=== PATIENT | female | born 1955 | race Caucasian/White ===

== ENCOUNTER → 2018-05-29 15:55 | Outpatient (CLI) | payer SELFPAY | PROVIDERS: Family Provider Family Medicine; PCP Family Medicine; Visit Provider Family Medicine | DX: M54.5 Low back pain (principal) | CPT/HCPCS: 72110 ==

== ENCOUNTER → 2018-06-19 10:11 | Outpatient (CLI) | payer OTHER, SELFPAY ==
[2018-06-19 12:42] LABS: Anion Gap 7 (5-15); BUN 11 mg/dL (7-18); BUN/Creat Ratio 15.2 RATIO (10-20); Calcium,Total 9.5 mg/dL (8.5-10.1); Chloride 104 mmol/L (98-107); Creatinine, Serum 0.72 mg/dL (0.55-1.02); EST Glomerular Filtration Rate 87 mL/min (>60); Est Glom Filt Rate - Afr Amer 105 mL/min (>60); Glucose 142 mg/dL (74-106); Sodium Level 141 mmol/L (136-145)
== END ==
PROVIDERS: Family Provider Family Medicine; PCP Family Medicine; Visit Provider Family Medicine
DX: E11.9 Type 2 diabetes mellitus without complications (principal); I10 Essential (primary) hypertension
CPT/HCPCS: 36415; 80048

== ENCOUNTER 2018-07-23 05:11 | Inpatient (IN) | payer OTHER, SELFPAY ==
[2018-07-23] VITALS (21 sets, daily range): BP systolic 94–171; BP diastolic 2–102; PULSE 74–105; RESP 16–20; TEMP 36.6–37.1; O2SAT 95–98; BMI 29.0; BMI 28.5
--- NOTE | 2018-07-23 05:17 | ED.RN ---
NO OLD EKGS IN MUSE.
--- NOTE | 2018-07-23 05:24 | EKG12_ITS ---
Test Reason : CP Blood Pressure : / mmHG Vent. Rate : 104 BPM Atrial Rate : 104 BPM P-R Int : 152 ms QRS Dur : 082 ms QT Int : 350 ms P-R-T Axes : 071 -29 047 degrees QTc Int : 460 ms Sinus tachycardia Septal infarct , age undetermined Abnormal ECG Possible inferior ischemia Confirmed by ANNABEL WHITMORE ([id number]), editorial project manager GIDEON PACE ([id number] on 08/04/2018 8:24:45 AM Referred By: YANI Confirmed By:ANNABEL WHITMORE
--- NOTE | 2018-07-23 05:24 | RAD_ITS ---
STUDY: X-RAY CHEST REASON FOR EXAM: Female, 62 years old. Back pain started Priyank, decreased appetite, chest pain. Feels like my heart is racing. TECHNIQUE: Single AP portable view of the chest. COMPARISON: CT chest 08/13/2013 FINDINGS: There is a stable calcified granuloma in the right parahilar parenchyma. As hyperinflation. There is no demonstrated pleural abnormality. Normal size heart. Normal mediastinum and jose. Normal visualized pulmonary arteries. Normal visualized aortic arch and descending thoracic aorta. There are diffuse degenerative changes of the visualized thoracic spine. Normal visualized ribs, clavicles, and shoulders. There is no demonstrated abnormality of the visualized soft tissue structures of the upper abdomen. RAD/Chest 1 View (Portable) IMPRESSION: No pulmonary edema, congestive heart failure or confluent pneumonia. Hyperinflation remote chondromatous exposure. Electronically Signed: Talita Colmenares MD at 5:54 EDT , Service support ,
[2018-07-23] MEDS: 0.9% Normal Saline 1,000 ML 150 ML IV (05:30)
[2018-07-23] MEDS: Aspirin 81 MG TAB.CHEW 324 MG PO (05:33)
[2018-07-23 05:34] LABS: Absolute Lymphocyte Count 2.56 X10^3/ul (0.83-4.51); Absolute Neutrophil Count 7.2 X10^3/uL (2.0-7.7); Basophil# 0.01 X10^3/uL; Basophil% 0.1 % (0-1); Eosinophils% 0.9 % (0-5); Hematocrit 41.6 % (37-47); Hemoglobin 14.1 g/dl (12.0-15.0); Lymphocyte # 2.56 X10^3/ul (4.0); Lymphocyte % 23.3 % (19-41); Mean Corp Hgb Conc 33.9 g/gl (32-36); Mean Corpuscular Hgb 28.3 pg (27.0-32.0); Mean Corpuscular Volume 83.4 fL (81-99); Mean Platelet Vol. 10.9 fl (6.2-12.0); Monocyte# 1.09 X10^3/uL; Monocyte% 9.9 % (0-10); Neutrophil % 65.6 % (47-70); Platelet Count 215 K/mm3 (150-450); RBC Distribution Width CV 13.4 % (11.6-14.6); RBC Distribution Width SD 40.3 fl (35.1-43.9); Red Blood Count 4.99 M/mm3 (4.2-5.4)
[2018-07-23 05:42] LABS: POSITIVE COUNT NO; POSITIVE DIFFERENTIAL NO; POSITIVE MORPHOLOGY NO
[2018-07-23] MEDS: Ondansetron 4 MG/2 ML Vial IV (05:54)
[2018-07-23 05:57] LABS: Anion Gap 9 (5-15); BUN 7 mg/dL (7-18); BUN/Creat Ratio 9.7 RATIO (10-20); Chloride 104 mmol/L (98-107); Creatinine, Serum 0.72 mg/dL (0.55-1.02); EST Glomerular Filtration Rate 88 mL/min (>60); Est Glom Filt Rate - Afr Amer 106 mL/min (>60); Estimated Creatinine Clearance 68.73 ml/min; Glucose 174 mg/dL (74-106); Potassium 3.9 mmol/L (3.5-5.1); Sodium Level 138 mmol/L (136-145)
--- NOTE | 2018-07-23 05:58 | EKG12_ITS ---
Test Reason : INNCREASED TROPONIN Blood Pressure : / mmHG Vent. Rate : 080 BPM Atrial Rate : 080 BPM P-R Int : 150 ms QRS Dur : 078 ms QT Int : 404 ms P-R-T Axes : 061 -12 082 degrees QTc Int : 465 ms Normal sinus rhythm Septal infarct , age undetermined Abnormal ECG Confirmed by ANNABEL WHITMORE ([id number]), editor city GIDEON PACE ([id number] on 08/04/2018 8:24:08 AM Referred By: YANI Confirmed By:ANNABEL WHITMORE
--- NOTE | 2018-07-23 05:59 | ED.RN ---
DR MOREL MADE AWARE OF TROPONIN 10.9.
[2018-07-23] MEDS: Acetaminophen 325 MG Tablet 650 MG PO (06:01)
[2018-07-23] MEDS: Enoxaparin 80 MG/0.8 ML Syringe SC (06:03)
--- NOTE | 2018-07-23 06:04 | ED.VISSUMM ---
- ER Visit Summary Date of Service: 07/23/18 Chief Complaint: [Chest pain] History of Present Illness: The patient is a 62 F [presents the emergency department complaint of chest discomfort that started 3 days ago. Patient's had intermittent discomfort that is exertional. Patient feels short of breath with it. Patient states the pain radiates to her back at times. Currently she rates her pain a 5 out of 10. Patient is a diabetic. Patient has not had any cardiac history. She did travel to [place] in April. Patient has not had fever or cough.] Physical Examination: [HEENT-PERRLA, EOMI. Cranial nerves II through XII grossly intact. TMs clear. Mucous membranes moist. No adenopathy. Cardiovascular-regular rate and rhythm without murmur or ectopy Lungs-clear to auscultation, chest wall stable without crepitus or subcu emphysema Abdomen-normoactive bowel sounds, soft, nontender, no rebound or rigidity, no peritoneal signs. Extremities-intact ?4, normal range of motion, normal pulses, atraumatic] Test Results: [EKG obtained on arrival showed a sinus rhythm with a ventricular rate of [address] changes noted including subtle ST depression inferior lateral leads. No old EKGs available for comparison. CBC with differential is normal. Chemistries were normal. Troponin was elevated 10.9. Chest x-ray showed nothing acute. Repeat EKG obtained showed a sinus rhythm with a ventricular rate of 80 bpm not significantly changed from first EKG.] Emergency Department Course and Treatment: [Patient received aspirin on presentation and 1 sublingual nitro every 5 minutes x3 and had initial pain improvement but then the pain started to come back. Patient received fentanyl 25 mg IV. Patient was started on Lovenox 80 mg subcu.] Treatment Plan: [Admit for further workup and evaluation of her non-ST elevation OR] Disposition: [Admit] Impression: [Chest pain Non-ST elevation OR] This note was generated with [employer] dictation software. It may contain incorrect words, spelling, and punctuation that were not noted in review of the chart prior to signing ED Disposition - Plan for ED Patient: Chief Complaint: Chest Pain Referrals: Emmett Lopez MD [Primary Care Provider] -
[2018-07-23] MEDS: fentaNYL 100 MCG/2 ML Ampul 25 MCG IV (06:07)
--- NOTE | 2018-07-23 06:07 | ED.DCSUM_ITS ---
- ER Visit Summary Date of Service: 07/23/18 Chief Complaint: [Chest pain] History of Present Illness: The patient is a 62 F [presents the emergency department complaint of chest discomfort that started 3 days ago. Patient's had intermittent discomfort that is exertional. Patient feels short of breath with it. Patient states the pain radiates to her back at times. Currently she rates her pain a 5 out of 10. Patient is a diabetic. Patient has not had any cardiac history. She did travel to [place] in April. Patient has not had fever or cough.] Physical Examination: [HEENT-PERRLA, EOMI. Cranial nerves II through XII grossly intact. TMs clear. Mucous membranes moist. No adenopathy. Cardiovascular-regular rate and rhythm without murmur or ectopy Lungs-clear to auscultation, chest wall stable without crepitus or subcu emphysema Abdomen-normoactive bowel sounds, soft, nontender, no rebound or rigidity, no peritoneal signs. Extremities-intact ?4, normal range of motion, normal pulses, atraumatic] Test Results: [EKG obtained on arrival showed a sinus rhythm with a ventricular rate of [address] changes noted including subtle ST depression inferior lateral leads. No old EKGs available for comparison. CBC with differential is normal. Chemistries were normal. Troponin was elevated 10.9. Chest x-ray showed nothing acute. Repeat EKG obtained showed a sinus rhythm with a ventricular rate of 80 bpm not significantly changed from first EKG.] Emergency Department Course and Treatment: [Patient received aspirin on presentation and 1 sublingual nitro every 5 minutes x3 and had initial pain improvement but then the pain started to come back. Patient received fentanyl 25 mg IV. Patient was started on Lovenox 80 mg subcu.] Treatment Plan: [Admit for further workup and evaluation of her non-ST elevation VT] Disposition: [Admit] Impression: [Chest pain Non-ST elevation VT] This note was generated with [employer] dictation software. It may contain incorrect words, spelling, and punctuation that were not noted in review of the chart prior to signing ED Disposition - Plan for ED Patient: Chief Complaint: Chest Pain Referrals: Emmett Lopez MD [Primary Care Provider] -
[2018-07-23] MEDS: Metoprolol Tartrate 5 MG/5 ML Vial IV (06:13)
--- NOTE | 2018-07-23 06:15 | PCM.HP.STD ---
Problem List (1) Non-ST elevation VT (NSTEMI) Status: Acute (2) Diabetes mellitus Status: Acute History of Present Illness Date of Admission: 07/23/18 Chief Complaint: Chest pain The patient is a 62 year old F with a significant history of diabetes mellitus who presented because of chest pain that started 3 days before she came to the emergency department. Her pain is located at her entire chest. She describes her pain as a tightening and squeezing. On the first day her chest pain lasted all day. The next day she did not have any pain. However the pain returned on the third day and it lasted all day. She rates her pain as 10 out of 10. The pain started when she was walking. The pain improves somewhat with rest and is exacerbated with exertion. The pain radiates to her back. Associated with her symptoms is nausea without vomiting; diaphoresis and shortness of breath. At emergency department patient was found to have ST depression in leads V3, V4 and V6. Her troponin was severely elevated at 10.9. She received nitroglycerin which temporarily eased her chest pain but her pain came back. Subsequently, she was given fentanyl; Lovenox and metoprolol. At the time of my examination patient denied any pain. Patient reports history of previous chest pain with unremarkable stress test. Patient does not know whether her parents had any disease. However she reported that her uncle and aunts had diabetes. Past Medical History Allergies No Known Allergies Allergy (Verified 07/23/18 05:16) Home Medications: Ambulatory Orders Medication Instructions Recorded Dm Natural Med 1 cap PO BID 07/23/18 Surgical History: cholecystectomy, hysterectomy, - - Neck surgery Psychiatric History: No pertinent psych hx Lives: Alone Smoking Status: Never smoker Alcohol: None - *Family History Maternal Family History: Family History (Last Reviewed 07/23/18 @ 07:29 by Atul Rivas MD) Aunt Diabetes Uncle Diabetes Review of Systems Constitutional: Denies: Chills, Fever, Weight Change Eyes: Denies: Blurred vision, Pain HEENT: Denies: Head Aches, Sinus Congestion, Sinus Drainage Cardiovascular: Reports: Chest Pain, Chest Tightness. Denies: Palpitations Respiratory: Reports: Shortness of Breath. Denies: Cough, Sputum production Gastrointestinal: Reports: Nausea. Denies: Abdominal Pain, Vomiting Genitourinary: Denies: Dysuria Gynecological: Denies: Breast symptoms Musculoskeletal: Denies: Joint Pain, Joint Tenderness Skin: Denies: Rash, Wounds Neurological: Denies: Numbness, Tingling, Focal weakness Psychiatric: Denies: Anxiety, Depression, Homicidal Ideations, Suicidal Ideations Hematologic/ Lymphatic: Denies: Easy Bruising, Easy Bleeding VTE Information - Inpt Only VTE Present on Admission: No VTE Mechan Device Prophylaxis: None VTE Pharm Prophylaxis ordered?: No Reason prophylaxis not ordered:: Treatment Not Indicated - Received therapeutic dose of Lovenox for non-ST elevation VT Patient Problems: Active and Suspected Problems Non-ST elevation VT (NSTEMI) (Acute) Diabetes mellitus (Acute) - Physical Exam General: Alert, Oriented x3, Cooperative HEENT: Atraumatic, PERRLA, EOMI, Normocephalic Neck: Supple, No JVD, Negative Carotid Bruits Lungs: Clear to auscultation, Normal air movement, - - Nontender chest. Cardiovascular: Regular rate, No murmurs Abdomen: Bowel Sounds Present, Soft, Non Tender Extremities: No edema, Capillary Refill Less than 3 Seconds Skin: No rashes, No breakdown Musculoskeletal: No Tenderness to Palpation of Joints or Extremities Lymphatic: No Cervical, Supraclavicular, or Inguinal Adenopathy Neurological: Cranial nerves II-XII grossly intact Psych/Mental Status: Normal Affect, Appropriate Vital Signs Temp Pulse Resp BP Pulse Ox 97.9 F 79 16 120/81 H 98 07/23/18 05:12 07/23/18 06:09 07/23/18 06:09 07/23/18 06:09 07/23/18 06:09 Oxygen Flow Rate (L/min) 2 Oxygen Delivery Method Nasal Cannula Weight: 74.4 kg Body Mass Index (BMI) 29.0 Laboratory Tests Past 24 Hrs 07/23/18 07/23/18 05:21 05:21 WBC 11.0 RBC 4.99 Hgb 14.1 Hct 41.6 MCV 83.4 MCH 28.3 MCHC 33.9 RDW 13.4 RDW Differential 40.3 Plt Count 215 MPV 10.9 Immature Gran % (Auto) 0.200 Neut % (Auto) 65.6 Lymph % (Auto) 23.3 [place] % (Auto) 9.9 Eos % (Auto) 0.9 Baso % (Auto) 0.1 Absolute Neuts (auto) 7.2 Absolute Lymphs (auto) 2.56 Total Counted Not Reportable Sodium 138 Potassium 3.9 Chloride 104 Carbon Dioxide 25.0 Anion Gap 9 BUN 7 Creatinine 0.72 Estim Creat Clear Calc 68.73 Est GFR (MDRD) Af Amer 106 Est GFR (MDRD) Non-Af 88 BUN/Creatinine Ratio 9.7 L Glucose 174 H Calcium 9.0 Troponin I 10.900 H* Assessment/Plan All Active Problems Non-ST elevation VT (NSTEMI) (Acute) Diabetes mellitus (Acute) The patient is a 62 year old F with a significant history of diabetes mellitus who presented because of chest pain and found to have ST depression in leads V3, V4, V6; and also with severely elevated troponin of 10.9. Non-ST elevation VT Patient with chest pain; abnormal EKG and troponin of 10.9. Admit to a monitored bed on PCU CXR independently reviewed confirms no acute cardia pulmonary pathology. EKG with ST depression in V3, V4 and V6 and inferior leads. Received 324 mg aspirin at emergency department. Received fentanyl at the ED Received therapeutic dose of Lovenox at emergency department. ASA 81 mg p.o. daily Cardiology consulted. Cardiology plans to take patient to the cardiac lab for cardiac catheterization. High intensity statin started by cardiology. Diabetes mellitus On admission blood glucose was fairly controlled. Patient reportedly takes herbal supplements at home and watch her diet. Patient is n.p.o. for cardiac catheterization. Accu-Chek before meals at bedtime and correction scale insulin. Adjust Accu-Chek and insulin therapy when patient is no longer n.p.o. DVT prophylaxis Patient received treatment dose of Lovenox on day of admission. Prophylaxis not ordered at this time. Consider DVT prophylaxis if patient stays after the day of admission. Code Visit Inpatient E&M: 18859 Init Hosp L3
--- NOTE | 2018-07-23 06:56 | EKG12_ITS ---
Test Reason : CP Blood Pressure : / mmHG Vent. Rate : 072 BPM Atrial Rate : 072 BPM P-R Int : 134 ms QRS Dur : 080 ms QT Int : 414 ms P-R-T Axes : 044 -08 081 degrees QTc Int : 453 ms Normal sinus rhythm Nonspecific ST and T wave abnormality Abnormal ECG When compared with ECG of 23-JUL-2018 06:04, MANUAL COMPARISON REQUIRED, DATA IS UNCONFIRMED Confirmed by PATSY EVANS, REGAN ([id number]), assistant production editor MINESH AVILA ([id number]) on 07/27/2018 10:54:50 AM Referred By: SANDEE Confirmed By:REGAN GARNER MD
--- NOTE | 2018-07-23 07:00 | PCM.CONS.C ---
Reason for Consult Date of Consultation: 07/23/18 Reason for Consultation: Chest discomfort History of Present Illness: The patient is a 62 year old F with no previous medical history who presented to the emergency room with a 4-5-day episode of chest discomfort. She describes it as a squeezing sensation like somebody grabbing her with some radiation to the left side. She was concerned about the above it seemed to occur with exertion and also with rest. She denied any dizziness or diaphoresis no near syncope or syncope. She really is on no medications. She presented to the emergency room had an EKG done and then had troponins done which were elevated. She was admitted to the hospitalist and cardiology was called for further evaluation and management. At this particular time she denies any chest pain or shortness of breath. [] Past Medical History Allergies/Adverse Reactions: Allergies No Known Allergies Allergy (Verified 07/23/18 05:16) Home Medications: Ambulatory Orders Medication Instructions Recorded Dm Natural Med 1 cap PO BID 07/23/18 Smoking Status: Never smoker Alcohol: None Drugs: None Review of Systems - Review of Systems General: Denies: Fever, Night Sweats, Fatigue Cardiovascular: Reports: Chest Discomfort at Rest, Chest Discomfort with Exertion, Chest Tightness, Chest Heaviness. Denies: Chest Discomfort, Shortness of Breath, Orthopnea, PND, Peripheral Edema, Palpitations, Lightheadedness, Dizziness, Near Syncope, Syncope Respiratory: Denies: Cough, Sputum Production, Hemoptysis Gastrointestinal: Denies: Hematemesis, Hematochezia, Melena Genitourinary: Denies: Dysuria, Hematuria Skin: Denies: Rash Subjectve: Pleasant lady in no apparent distress resting in bed Objective: Vital Signs Temp Pulse Resp BP Pulse Ox 97.9 F 79 16 120/81 H 98 07/23/18 05:12 07/23/18 06:09 07/23/18 06:09 07/23/18 06:09 07/23/18 06:09 Oxygen Flow Rate (L/min) 2 Oxygen Delivery Method Nasal Cannula Weight: 164 lb 0.383 oz Body Mass Index (BMI) 29.0 General: Awake, Alert, Oriented x 3 HEENT: PERRL, EOMI, Sclera Non Icteric Neck: Supple, Good ROM, No Lymph Node Enlargement Lungs: Clear to auscultation Cardiovascular: Regular Rhythm, Normal S1, Normal S2, No Murmurs, No Rubs, No Gallops Vascular: No Carotid Bruits, Normal Femoral Pulses, Normal Radial Pulses, Normal Dorsalis Pedal Pulse, Normal Posterior Tibial Pulses Abdomen: Bowel Sounds Present, Soft, Non Tender, No HSM, No Organomegaly Extremities: No Cyanosis, No Clubbing, No edema Neurological: No Focal Motor or Sensory Deficit 07/23/18 05:21: WBC 11.0, RBC 4.99, Hgb 14.1, Hct 41.6, MCV 83.4, MCH 28.3, MCHC 33.9, RDW 13.4, RDW Differential 40.3, Plt Count 215, MPV 10.9, Immature Gran % (Auto) 0.200, Neut % (Auto) 65.6, Lymph % (Auto) 23.3, [place] % (Auto) 9.9, Eos % (Auto) 0.9, Baso % (Auto) 0.1, Absolute Neuts (auto) 7.2, Total Counted Not Reportable 07/23/18 05:21: Sodium 138, Potassium 3.9, Chloride 104, Carbon Dioxide 25.0, Anion Gap 9, BUN 7, Creatinine 0.72, Est GFR (MDRD) Af Amer 106, Est GFR (MDRD) Non-Af 88, BUN/Creatinine Ratio 9.7 L, Glucose 174 H, Calcium 9.0, Troponin I 10.900 H* Rhythm: EKG: ECHO: Stress Test: Cardiac Cath: PCI: CT Surgery: Holter monitor: EPS: PPM: CXR: Chest CT Scan: Assessment/Plan 1. Non-ST elevation myocardial infarction. The patient presents with chest discomfort which is waxing and waning of 3-4 days duration. She now has a non-ST elevation myocardial infarction. My recommendations would be-aspirin 81 mg Brilinta 180 mg now Toprol-XL 25 mg Would recommend cardiac catheterization. The risk benefits and alternatives have been explained to her she understands and agrees to proceed. The above will be performed through the radial approach preferably. 2. Diabetes mellitus Will defer to the hospitalist regarding the above. Thank you for allowing me to participate in the care of your patient. Please don't hesitate to call if any issues arise
--- NOTE | 2018-07-23 07:03 | CON.PCM_ITS ---
Reason for Consult Date of Consultation: 07/23/18 Reason for Consultation: Chest discomfort History of Present Illness: The patient is a 62 year old F with no previous medical history who presented to the emergency room with a 4-5-day episode of chest discomfort. She describes it as a squeezing sensation like somebody grabbing her with some radiation to the left side. She was concerned about the above it seemed to occur with exertion and also with rest. She denied any dizziness or diaphoresis no near syncope or syncope. She really is on no medications. She presented to the emergency room had an EKG done and then had troponins done which were elevated. She was admitted to the hospitalist and cardiology was called for further evaluation and management. At this particular time she denies any chest pain or shortness of breath. [] Past Medical History Allergies/Adverse Reactions: Allergies No Known Allergies Allergy (Verified 07/23/18 05:16) Home Medications: Ambulatory Orders Medication Instructions Recorded Dm Natural Med 1 cap PO BID 07/23/18 Smoking Status: Never smoker Alcohol: None Drugs: None Review of Systems - Review of Systems General: Denies: Fever, Night Sweats, Fatigue Cardiovascular: Reports: Chest Discomfort at Rest, Chest Discomfort with Exertion, Chest Tightness, Chest Heaviness. Denies: Chest Discomfort, Shortness of Breath, Orthopnea, PND, Peripheral Edema, Palpitations, Lightheadedness, Dizziness, Near Syncope, Syncope Respiratory: Denies: Cough, Sputum Production, Hemoptysis Gastrointestinal: Denies: Hematemesis, Hematochezia, Melena Genitourinary: Denies: Dysuria, Hematuria Skin: Denies: Rash Subjectve: Pleasant lady in no apparent distress resting in bed Objective: Vital Signs Temp Pulse Resp BP Pulse Ox 97.9 F 79 16 120/81 H 98 07/23/18 05:12 07/23/18 06:09 07/23/18 06:09 07/23/18 06:09 07/23/18 06:09 Oxygen Flow Rate (L/min) 2 Oxygen Delivery Method Nasal Cannula Weight: 164 lb 0.383 oz Body Mass Index (BMI) 29.0 General: Awake, Alert, Oriented x 3 HEENT: PERRL, EOMI, Sclera Non Icteric Neck: Supple, Good ROM, No Lymph Node Enlargement Lungs: Clear to auscultation Cardiovascular: Regular Rhythm, Normal S1, Normal S2, No Murmurs, No Rubs, No Gallops Vascular: No Carotid Bruits, Normal Femoral Pulses, Normal Radial Pulses, Normal Dorsalis Pedal Pulse, Normal Posterior Tibial Pulses Abdomen: Bowel Sounds Present, Soft, Non Tender, No HSM, No Organomegaly Extremities: No Cyanosis, No Clubbing, No edema Neurological: No Focal Motor or Sensory Deficit 07/23/18 05:21: WBC 11.0, RBC 4.99, Hgb 14.1, Hct 41.6, MCV 83.4, MCH 28.3, MCHC 33.9, RDW 13.4, RDW Differential 40.3, Plt Count 215, MPV 10.9, Immature Gran % (Auto) 0.200, Neut % (Auto) 65.6, Lymph % (Auto) 23.3, [place] % (Auto) 9.9, Eos % (Auto) 0.9, Baso % (Auto) 0.1, Absolute Neuts (auto) 7.2, Total Counted Not Reportable 07/23/18 05:21: Sodium 138, Potassium 3.9, Chloride 104, Carbon Dioxide 25.0, Anion Gap 9, BUN 7, Creatinine 0.72, Est GFR (MDRD) Af Amer 106, Est GFR (MDRD) Non-Af 88, BUN/Creatinine Ratio 9.7 L, Glucose 174 H, Calcium 9.0, Troponin I 10.900 H* Rhythm: EKG: ECHO: Stress Test: Cardiac Cath: PCI: CT Surgery: Holter monitor: EPS: PPM: CXR: Chest CT Scan: Assessment/Plan 1. Non-ST elevation myocardial infarction. * The patient presents with chest discomfort which is waxing and waning of 3-4 days duration. She now has a non-ST elevation myocardial infarction. * My recommendations would be-aspirin 81 mg * Brilinta 180 mg now * Toprol-XL 25 mg * Would recommend cardiac catheterization. The risk benefits and alternatives have been explained to her she understands and agrees to proceed. The above will be performed through the radial approach preferably. * 2. Diabetes mellitus * Will defer to the hospitalist regarding the above. * * Thank you for allowing me to participate in the care of your patient. Please don't hesitate to call if any issues arise
[2018-07-23] MEDS: TICAGRELOR 90 MG TABLET 180 MG PO (07:14)
[2018-07-23] MEDS: Metoprolol(XL)Succ 25 MG Tablet PO ×2 (07:23→11:37)
[2018-07-23] MEDS: 0.9% Normal Saline 1,000 ML 15 ML IV (07:24)
[2018-07-23 09:47] LABS: Cholesterol 189 mg/dL (200); High Density Lipoprotein 63 mg/dL; Triglycerides 112 mg/dL; Very Low Density Lipoprotein 22 mg/dL (5-40)
[2018-07-23] MEDS: Nitroglycerin Oint 1 INCH PACKET TRANSDERM. (11:37)
--- NOTE | 2018-07-23 16:31 | CL.D_ITS ---
Patient Name: LAURA MATTHEWS Study Date: 07/23/2018 Performing: Tal Leone MD Ht: 63 inches 160 cm : 1955 Wt: 161.1 lbs 73 kg Age: 62 Gender: female BSA: 1.76 PROCEDURE(S) PERFORMED [id number]/LV CLINICAL PROFILE AND INDICATIONS Indications: ACS <= 24 hrs Heart Failure: None Stress/Imaging Stress/Image Study Performed: No CONCLUSIONS Severe triple-vessel disease involving the proximal left anterior descending artery, mid left anterio r descending artery, mid circumflex artery, and mid and distal right coronary artery. Mild reduction in left ventricular ejection fraction. RECOMMENDATIONS Surgery consult for coronary revascularization DESCRIPTION OF PROCEDURE The patient arrived to the procedure lab. The risks and benefits of the procedure as well as a full d escription of our services here and current unavailability of surgical backup were fully explained to the patient and/or their significant other prior to the catheterization. The Timeout was completed, verifying the correct patient and procedure. The patient's procedural site was prepped and draped in the usual fashion. Local anesthetic was given subcutaneously to right radial region with Lidocaine 2% . Using a modified Seldinger technique, arterial access was obtained via the right radial artery, a 6 Fr sheath was inserted. Right Coronary Artery selective angiography was then performed in multiple v iews using a 5 Fr. Pigtail catheter. Left Coronary Artery selective angiography was performed in mult iple views using a 5 Fr. 4.0 [place] catheter. Left Ventriculography was performed in REYES projection us ing a 5 Fr. Pigtail catheter. LV to AO pullback pressures were then recorded.The arterial sheath was pulled and a TR Band was applied for hemostasis CORONARY ANGIOGRAPHY DOMINANCE: Right Dominant LEFT HEART ASSESSMENT Left Ventricular Ejection Fraction: by LV Gram 45 % Anterior Hypokinesis - Moderate. Apical Hypokinesis - Moderate Depressed Left Ventricular systolic function LEFT MAIN: Mild calcification, Angiographically normal LEFT ANTERIOR DECENDING ARTERY: PROX LAD: Eccentric 90% stenosis MID LAD: Long area of 80% stenosis with diffuse disease CIRCUMFLEX ARTERY: MID CIRC: Long area of 90% stenosis OM 1: Proximal - Multiple areas of 80% stenosis RIGHT CORONARY ARTERY: MID RCA: 50 % Stenosis RT PDA: Mid - Multiple 80% stenosis in a small vessel COMPLICATIONS No Complications PROCEDURE MEDICATIONS Versed 1 mg IV Fentanyl 50 mcg IV Heparin diluted in 23cc Heparinized saline. Patient given 1/3 of 10cc IA of this solution. 07:57:53 Verapamil 2.5mg, Ntg 100mcgs, 2000 units of Heparin diluted in 23cc Heparinized saline. Patient give n 1/3 of 10cc IA of this solution. 07/23/2018 07:57:53 SUMMARY OF HEMODYNAMIC DATA Time AIR REST ECG 07:41:52 AO 86/54 (70) SA 07:58:43 LV 100/7, 15 08:05:51 LV 89/6, 13 08:05:58 LV 105/24, 34 08:07:15 LV 114/21, 30 08:07:21 LVp 104/22, 29 08:07:32 AOp 116/71 (92) 08:07:37 Signed By Tal Leone MD On 07/23/2018 16:30:56 Tal Leone MD
--- NOTE | 2018-07-25 18:03 | PCM.DC.SUM ---
Discharge Date and Diagnosis Date of Admission: 07/23/18 Date of Discharge: 07/23/18 - Primary Discharge Diagnosis #1 non-STEMI #2 severe triple-vessel coronary artery disease involving the proximal left anterior descending artery, mid left anterior descending artery, mid circumflex artery, and mid and distal right coronary artery. #3 type 2 diabetes Hospital Course and Treatment Operations: None Procedures: Cardiac catheterization Summary of Care Provided: The patient is a 62 year old F seen in the emergency room at [facility] with a chief complaint of chest discomfort of 3 days duration. Patient had intermittent discomfort which was worse on exertion. Workup in the emergency room included an EKG which showed a sinus rhythm and nonspecific ST-T wave changes including subtle ST depression in the inferior lateral leads, CBC was unremarkable, chemistry was unremarkable. Troponin was elevated at 10.9. Chest x-ray was unremarkable for acute disease. Patient was started on Lovenox 80 mg subcu, patient received aspirin on presentation, she was admitted to PCU with a diagnosis of non-STEMI and cardiology to consult. Cardiology performed a cardiac catheterization later that morning and patient had severe triple-vessel disease, patient was briefly admitted to ICU with a balloon pump but arrangements were made for her to be transferred to a tertiary care facility for further treatment. Physical exam: On examination she appeared in good health and spirits. Vital signs as documented. Skin warm and dry and without overt rashes. Neck without JVD. Lungs clear. Heart exam notable for regular rhythm, normal sounds and absence of murmurs, rubs or gallops. Abdomen unremarkable and without evidence of organomegaly, masses, or abdominal aortic enlargement. Extremities nonedematous. Neuro: Cranial nerves II through XII are grossly intact, no focal motor deficits were noted, sensation is intact to light touch and pinprick. Psych: Patient was alert and oriented x3 and appropriate, she did not appear depressed or anxious On 07/23/18, patient was transferred in stable condition to [facility] in [facility] for further care. - Physical Exam Vital Signs Temp Pulse Resp BP Pulse Ox 98.8 F 79 16 108/70 97 07/23/18 07:22 07/23/18 11:37 07/23/18 11:00 07/23/18 11:37 07/23/18 11:00 Oxygen Flow Rate (L/min) 2 Oxygen Delivery Method Nasal Cannula Weight: 73 kg Body Mass Index (BMI) 28.5 Intake and Output for Last 24 Hours 07/23/18 07/24/18 07/25/18 23:59 23:59 23:59 Intake Total 240 / 240 Balance 240 / 240 Home Medications: Medications to take at Discharge Dm Natural Med 1 cap PO BID 07/23/18 Primary Care Physician: Emmett Lopez MD [Primary Care Provider] - Disposition: Acute care Hospital Minutes spent on discharge:: 32 Patient Condition:: Stable Medical Necessity - Tobacco Use Smoking Status: Never smoker Meaningful Use Info Meaningful Use Diagnoses (Choose all that apply): AMI - AMI Aspirin given w/in 24hrs of arrival?: Yes ASA at discharge?: No Reason ASA not ordered:: Allergy - Patient was transferred to an acute care facility for further treatment Statins at discharge?: No Reason statins not ordered:: Allergy - Patient was transferred to an acute care facility for further treatment Esteban/ARB at discharge?: No Reason Esteban/ARB not ordered:: Allergy - Patient was transferred to an acute care facility for further treatment Beta Babs at discharge?: No Reason Beta Babs not ordered:: Allergy - Patient was discharged in acute care facility for further treatment Done w/ Acute MT measure.: Yes Code Visit OBSV E&M: 09879 Observ/hosp same date L3
--- NOTE | 2018-07-25 18:13 | DS.PCM_ITS ---
Discharge Date and Diagnosis Date of Admission: 07/23/18 Date of Discharge: 07/23/18 - Primary Discharge Diagnosis #1 non-STEMI #2 severe triple-vessel coronary artery disease involving the proximal left anterior descending artery, mid left anterior descending artery, mid circumflex artery, and mid and distal right coronary artery. #3 type 2 diabetes Hospital Course and Treatment Operations: None Procedures: Cardiac catheterization Summary of Care Provided: The patient is a 62 year old F seen in the emergency room at [facility] with a chief complaint of chest discomfort of 3 days duration. Patient had intermittent discomfort which was worse on exertion. Workup in the emergency room included an EKG which showed a sinus rhythm and nonspecific ST-T wave changes including subtle ST depression in the inferior lateral leads, CBC was unremarkable, chemistry was unremarkable. Troponin was elevated at 10.9. Chest x-ray was unremarkable for acute disease. Patient was started on Lovenox 80 mg subcu, patient received aspirin on presentation, she was admitted to PCU with a diagnosis of non-STEMI and cardiology to consult. Cardiology performed a cardiac catheterization later that morning and patient had severe triple-vessel disease, patient was briefly admitted to ICU with a balloon pump but arrangements were made for her to be transferred to a tertiary care facility for further treatment. Physical exam: On examination she appeared in good health and spirits. Vital signs as documented. Skin warm and dry and without overt rashes. Neck without JVD. Lungs clear. Heart exam notable for regular rhythm, normal sounds and absence of murmurs, rubs or gallops. Abdomen unremarkable and without evidence of organomegaly, masses, or abdominal aortic enlargement. Extremities nonedematous. Neuro: Cranial nerves II through XII are grossly intact, no focal motor deficits were noted, sensation is intact to light touch and pinprick. Psych: Patient was alert and oriented x3 and appropriate, she did not appear depressed or anxious On 07/23/18, patient was transferred in stable condition to [facility] in [facility] for further care. - Physical Exam Vital Signs Temp Pulse Resp BP Pulse Ox 98.8 F 79 16 108/70 97 07/23/18 07:22 07/23/18 11:37 07/23/18 11:00 07/23/18 11:37 07/23/18 11:00 Oxygen Flow Rate (L/min) 2 Oxygen Delivery Method Nasal Cannula Weight: 73 kg Body Mass Index (BMI) 28.5 Intake and Output for Last 24 Hours 07/23/18 07/24/18 07/25/18 23:59 23:59 23:59 Intake Total 240 / 240 Balance 240 / 240 Home Medications: Medications to take at Discharge Dm Natural Med 1 cap PO BID 07/23/18 Primary Care Physician: Emmett Lopez MD [Primary Care Provider] - Disposition: Acute care Hospital Minutes spent on discharge:: 32 Patient Condition:: Stable Medical Necessity - Tobacco Use Smoking Status: Never smoker Meaningful Use Info Meaningful Use Diagnoses (Choose all that apply): AMI - AMI Aspirin given w/in 24hrs of arrival?: Yes ASA at discharge?: No Reason ASA not ordered:: Allergy - Patient was transferred to an acute care facility for further treatment Statins at discharge?: No Reason statins not ordered:: Allergy - Patient was transferred to an acute care facility for further treatment Esteban/ARB at discharge?: No Reason Esteban/ARB not ordered:: Allergy - Patient was transferred to an acute care facility for further treatment Beta Babs at discharge?: No Reason Beta Babs not ordered:: Allergy - Patient was discharged in acute care facility for further treatment Done w/ Acute IA measure.: Yes Code Visit OBSV E&M: 48038 Observ/hosp same date L3
== END 2018-07-23 12:55 | disposition short-term general hospital (02) | DRG 282 ==
LOC: ED 05:29 → PCU 06:13
PROVIDERS: Admitting Provider Hospitalist; Emergency Provider Emergency Medicine; Family Provider Family Medicine; PCP Family Medicine; Visit Provider Internal Medicine
DX: I21.4 Non-ST elevation (NSTEMI) myocardial infarction (principal); E11.9 Type 2 diabetes mellitus without complications; I25.10 Atherosclerotic heart disease of native coronary artery without angina pectoris
CPT/HCPCS: 71045; 80048; 80061; 84484; 85025; 93005; 93458; 97802; 99152; 99153; 99285; J7030; Q9967; A4216; C1769; C1894; J2405

== ENCOUNTER → 2018-09-03 10:23 | Outpatient (CLI) | payer OTHER, SELFPAY ==
[2018-08-21 10:43] VITALS: BMI 28.0
--- NOTE | 2018-09-03 11:03 | PCM.CR.HP2 ---
CR - History & Physical - General Arrival date:: 09/03/18 Arrival time:: 10:30 Date of Referral:: 08/24/18 Date of CR Evaluation:: 09/03/18 Referring Physician: Dr. Leone Primary Diagnosis: NSTEMI CABG - History of Present Cardiac Event Onset Date: Enter Onset Date of cardiac illnesses in Comment field below Acute Myocardial Infarction within 12 months:: Yes - 07/27/2018 Coronary Artery Bypass Graft:: Yes - 07/27/2018 Type of Symptoms:: tightness in chest and back was hurting. Interventions with present event:: left heart cath at [facility] and then transferred patient to [facility] Were there any complications?: none - Medications Home Medications: Ambulatory Orders Medication Instructions Recorded Dm Natural Med 1 cap PO BID 07/23/18 aspirin 81 mg tablet,delayed 81 mg PO DAILY 08/21/18 release atorvastatin 40 mg tablet 40 mg PO DAILY 08/21/18 glipizide 5 mg tablet 5 mg PO DAILY 08/21/18 lisinopril 2.5 mg tablet 2.5 mg PO DAILY #90 tab 08/21/18 metoprolol tartrate 25 mg tablet 25 mg PO BID 08/21/18 - Allergies Allergies/Adverse Reactions: Allergies No Known Allergies Allergy (Verified 08/21/18 10:43) - Sleep Disorder Evaluation Hx of Sleep Apnea: No Do you snore loudly (louder than talking or can be heard through closed doors)?: No Do you often feel tired/ fatigued/ sleepy during daytime?: No Has anyone observed you stop breathing during sleep?: No History of Hypertension (for STOP score): No STOP Results: Negative Advanced Directives - Advanced Directives Power of Board [place]: No Living Will: No Advance Directives Information Provided: Yes Advance Directives on File: No DNR Order?:: No - MOLST See MOLST form: No Past Medical History - Past Medical Illness Medical History: Past Medical History (Last Reviewed 08/21/18 @ 11:17 by Tal Leone MD) Atherosclerosis of coronary artery of [place] heart without angina pectoris (Chronic) I25.10 Non-ST elevation [place] (NSTEMI) (Resolved) I21.4 Type 2 diabetes mellitus E11.9 - Past Surgical History Surgical History: Past Surgical History (Last Reviewed 08/21/18 @ 11:17 by Tal Leone MD) H/O coronary artery bypass surgery (Acute) Onset Date: 07/27/18 Z95.1 CABG x [address] @ [facility] [address] Toni Cox History of left heart catheterization Onset Date: 07/23/18 Z98.890 Surgical History: cholecystectomy, hysterectomy, - - Neck surgery cervical fusion - Family History Summary Family History: Family History (Last Reviewed 08/21/18 @ 11:17 by Tal Leone MD) Aunt Diabetes Uncle Diabetes Social History - Smoking History Smoking Status: Never smoker Hx Tobacco Use: No Hx Smoking Exposure: No - Alcohol Use Alcohol Usage: No - Substance Abuse Hx Substance Use: No - Occupation Occupation (List type of work in comments):: Employed - worked a couple of days per week; 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, Homemaker - Hobbies, Recreation, Social Activities Hobbies: Sewing - make cards crafts, embroidery sew, clean, Other Recreational Activities: I am able to engage in all my recreational activities Social Environment - Status Marital Status: - Current Living Arrangements Living Environment:: Alone - in law suite connected to daughters home - Children How many children do you have?: 12 Do any of your children live nearby?: Yes - Safety Do you feel safe in your surroundings?: Yes - Assistance Do you need any assistance at home?: none Review of Systems - Review of Systems Hints: Right click = Denies ([place]). Left click = Reports ([place]) Review of Present Symptoms: Reports: Wound Healing, Appetite - Special Diet - Follows diabetic diet, low fat low salt., Sleep - Normal. Denies: Shortness of Breath at Rest, Shortness of Breath with Exertion, Operative Discomfort, Dizziness/Lightheadedness, Fatigue, Heart Arrhythmia/Irregularities, Appetite - Normal - not quite back to normal, taste is not quite back yet. - Pain Is Patient Pain Free?: Yes Pain Location: none Risk Factor Assessment - Chief Complaint Chief Complaint: Patient is a very pleasent female of Dr. Leone's who presents to cardiac rehab today following recent NSTEMI, left heart cath, and subsequent CABG done at [facility] on 07/27/2018 - Vital Signs Temperature: 98.7 F Respiratory Rate: 14 Pulse Ox: 97 Blood Pressure: 122/64 Nailbeds:: pink - Pulse Pulse Rate: 68 Pulse Rhythm: Regular - Hypertension Blood Pressure Sitting - Left Arm: 122/64 - Stress Stress: Recent - Diabetes Diabetic History: Type II, Medication Dependent - Obesity Height: 5 ft 3 in Weight:: 152 lb Weight in Pounds: 152.0 lbs Weight Source: Estimated by Patient Body Mass Index (BMI): 26.9 Nutritional Referral for Obesity: No - Physical Inactivity Physical Inactivity: Reg Exercise 30 min/day - Risk Stratification Risk Guidelines: Lowest Risk: Risk Factor for Smoking, Risk Factor for Dyslipidemia, Risk Factor for Diabetes, Risk Factor for Obesity, Risk Factor for Hypertension, Risk Factor for Sedentary Lifestyle, Risk Factor for Depression - For Smoking Smoking Risk Guidelines: Smoking Low Risk: None or quit greater than 6 months ago. Smoking Moderate Risk: Smoker or quit 6 months or less ago. Smoking High Risk: Smoker - For Dyslipidemia Dyslipidemia Risk Guidelines: Low Risk: Moderate Risk: High Risk: 15-25% fat 25.1-29% fat >/= 30% fat. <7% sat fat 7-9% sat fat >9% sat fat. <150 mg chol 150-299 mg chol >/= 300 mg chol. LDL <100 LDL 100-129 LDL >/= 130. Chol/HDL ratio <5.0 Chol/HDL ratio 5.0-6.0 Chol/HDL ratio >6.0. Triglycerides <100 Triglycerides 100-149 Triglycerides >/= 150 - For Diabetes Mellitus Diabetes Risk Guidelines: Diabetes Low Risk: HgA1c <6.5% and/or FBG <120. Diabetes Moderate Risk: HgA1c 6.6-7.9% and/or FBG 120-180. Diabetes High Risk: HgA1c >/= 8% and/or FBG >180 - For Obesity/Overweight Obesity/Overweight Risk Guidelines: Obesity Low Risk: BMI <25.0. Obesity Moderate Risk: BMI 25-29.9. Obesity High Risk: BMI >/= 30.0 - For Hypertension Hypertension Risk Guidelines: Hypertension Low Risk: Systolic <120 and Diastolic <80. Hypertension Moderate Risk: Systolic 120-139 and Diastolic 80-89. Hypertension High Risk: Systolic >/= 140 and Diastolic >/= 90 - For Sedentary Lifestyle Sedentary Lifestyle Risk Guidelines: Sedentary Lifestyle Low Risk: >/= 1,500 kcal/week. Sedentary Lifestyle Moderate Risk: 700-1,499 kcal/week. Sedentary Lifestyle High Risk: < 700 kcal/week - For Depression Depression Risk Guidelines: Depression Low Risk: Not clinically depressed. Depression Moderate Risk: Mildly depressed. Depression High Risk: Clinically depressed - Family History Family History: Family History (Last Reviewed 08/21/18 @ 11:17 by Tal Leone MD) Aunt Diabetes Uncle Diabetes Motivation - Motivation to Participate On a scale of 1 to 10, how prepared are you to commit to attending program?: 10 What do you see as barriers to successfully being able to complete the program?: transportation needs What do you see as the benefits of succesfully completing the program? In other words, what do you hope to get out of participating in the program?: better health Are there issues you are dealing with that will interfere with completing the program?: none, unless blood sugars. Do you have a spouse or signficant other, family or friends who will help support you to complete the program?: yes.
--- NOTE | 2018-09-03 11:07 | CR.HP_ITS ---
CR - History & Physical - General Arrival date:: 09/03/18 Arrival time:: 10:30 Date of Referral:: 08/24/18 Date of CR Evaluation:: 09/03/18 Referring Physician: Dr. Leone Primary Diagnosis: NSTEMI CABG - History of Present Cardiac Event Onset Date: Enter Onset Date of cardiac illnesses in Comment field below Acute Myocardial Infarction within 12 months:: Yes - 07/27/2018 Coronary Artery Bypass Graft:: Yes - 07/27/2018 Type of Symptoms:: tightness in chest and back was hurting. Interventions with present event:: left heart cath at [facility] and then transferred patient to [place] Were there any complications?: none - Medications Home Medications: Ambulatory Orders Medication Instructions Recorded Dm Natural Med 1 cap PO BID 07/23/18 aspirin 81 mg tablet,delayed 81 mg PO DAILY 08/21/18 release atorvastatin 40 mg tablet 40 mg PO DAILY 08/21/18 glipizide 5 mg tablet 5 mg PO DAILY 08/21/18 lisinopril 2.5 mg tablet 2.5 mg PO DAILY #90 tab 08/21/18 metoprolol tartrate 25 mg tablet 25 mg PO BID 08/21/18 - Allergies Allergies/Adverse Reactions: Allergies No Known Allergies Allergy (Verified 08/21/18 10:43) - Sleep Disorder Evaluation Hx of Sleep Apnea: No Do you snore loudly (louder than talking or can be heard through closed doors)?: No Do you often feel tired/ fatigued/ sleepy during daytime?: No Has anyone observed you stop breathing during sleep?: No History of Hypertension (for STOP score): No STOP Results: Negative Advanced Directives - Advanced Directives Power of Ammonia Print Operator: No Living Will: No Advance Directives Information Provided: Yes Advance Directives on File: No DNR Order?:: No - MOLST See MOLST form: No Past Medical History - Past Medical Illness Medical History: Past Medical History (Last Reviewed 08/21/18 @ 11:17 by Tal Leone MD) Atherosclerosis of coronary artery of ute heart without angina pectoris (Chronic) I25.10 Non-ST elevation AR (NSTEMI) (Resolved) I21.4 Type 2 diabetes mellitus E11.9 - Past Surgical History Surgical History: Past Surgical History (Last Reviewed 08/21/18 @ 11:17 by Tal Leone MD) H/O coronary artery bypass surgery (Acute) Onset Date: 07/27/18 Z95.1 CABG x [address] [place] [address] Toni Cox History of left heart catheterization Onset Date: 07/23/18 Z98.890 Surgical History: cholecystectomy, hysterectomy, - - Neck surgery cervical fusion - Family History Summary Family History: Family History (Last Reviewed 08/21/18 @ 11:17 by Tal Leone MD) Aunt Diabetes Uncle Diabetes Social History - Smoking History Smoking Status: Never smoker Hx Tobacco Use: No Hx Smoking Exposure: No - Alcohol Use Alcohol Usage: No - Substance Abuse Hx Substance Use: No - Occupation Occupation (List type of work in comments):: Employed - worked a couple of days per week; 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, Homemaker - Hobbies, Recreation, Social Activities Hobbies: Sewing - make cards crafts, embroidery sew, clean, Other Recreational Activities: I am able to engage in all my recreational activities Social Environment - Status Marital Status: - Current Living Arrangements Living Environment:: Alone - in law suite connected to daughters home - Children How many children do you have?: 12 Do any of your children live nearby?: Yes - Safety Do you feel safe in your surroundings?: Yes - Assistance Do you need any assistance at home?: none Review of Systems - Review of Systems Hints: Right click = Denies ([place]). Left click = Reports ([place]) Review of Present Symptoms: Reports: Wound Healing, Appetite - Special Diet - Follows diabetic diet, low fat low salt., Sleep - Normal. Denies: Shortness of Breath at Rest, Shortness of Breath with Exertion, Operative Discomfort, Dizziness/Lightheadedness, Fatigue, Heart Arrhythmia/Irregularities, Appetite - Normal - not quite back to normal, taste is not quite back yet. - Pain Is Patient Pain Free?: Yes Pain Location: none Risk Factor Assessment - Chief Complaint Chief Complaint: Patient is a very pleasent female of Dr. Leone's who presents to cardiac rehab today following recent NSTEMI, left heart cath, and subsequent CABG done at [facility] on 07/27/2018 - Vital Signs Temperature: 98.7 F Respiratory Rate: 14 Pulse Ox: 97 Blood Pressure: 122/64 Nailbeds:: pink - Pulse Pulse Rate: 68 Pulse Rhythm: Regular - Hypertension Blood Pressure Sitting - Left Arm: 122/64 - Stress Stress: Recent - Diabetes Diabetic History: Type II, Medication Dependent - Obesity Height: 5 ft 3 in Weight:: 152 lb Weight in Pounds: 152.0 lbs Weight Source: Estimated by Patient Body Mass Index (BMI): 26.9 Nutritional Referral for Obesity: No - Physical Inactivity Physical Inactivity: Reg Exercise 30 min/day - Risk Stratification Risk Guidelines: Lowest Risk: Risk Factor for Smoking, Risk Factor for Dyslipidemia, Risk Factor for Diabetes, Risk Factor for Obesity, Risk Factor for Hypertension, Risk Factor for Sedentary Lifestyle, Risk Factor for Depression - For Smoking Smoking Risk Guidelines: Smoking Low Risk: None or quit greater than 6 months ago. Smoking Moderate Risk: Smoker or quit 6 months or less ago. Smoking High Risk: Smoker - For Dyslipidemia Dyslipidemia Risk Guidelines: Low Risk: Moderate Risk: High Risk: 15-25% fat 25.1-29% fat >/= 30% fat. <7% sat fat 7-9% sat fat >9% sat fat. <150 mg chol 150-299 mg chol >/= 300 mg chol. LDL <100 LDL 100-129 LDL >/= 130. Chol/HDL ratio <5.0 Chol/HDL ratio 5.0-6.0 Chol/HDL ratio >6.0. Triglycerides <100 Triglycerides 100-149 Triglycerides >/= 150 - For Diabetes Mellitus Diabetes Risk Guidelines: Diabetes Low Risk: HgA1c <6.5% and/or FBG <120. Diabetes Moderate Risk: HgA1c 6.6-7.9% and/or FBG 120-180. Diabetes High Risk: HgA1c >/= 8% and/or FBG >180 - For Obesity/Overweight Obesity/Overweight Risk Guidelines: Obesity Low Risk: BMI <25.0. Obesity Moderate Risk: BMI 25-29.9. Obesity High Risk: BMI >/= 30.0 - For Hypertension Hypertension Risk Guidelines: Hypertension Low Risk: Systolic <120 and Diastolic <80. Hypertension Moderate Risk: Systolic 120-139 and Diastolic 80-89. Hypertension High Risk: Systolic >/= 140 and Diastolic >/= 90 - For Sedentary Lifestyle Sedentary Lifestyle Risk Guidelines: Sedentary Lifestyle Low Risk: >/= 1,500 kcal/week. Sedentary Lifestyle Moderate Risk: 700-1,499 kcal/week. Sedentary Lifestyle High Risk: < 700 kcal/week - For Depression Depression Risk Guidelines: Depression Low Risk: Not clinically depressed. Depression Moderate Risk: Mildly depressed. Depression High Risk: Clinically depressed - Family History Family History: Family History (Last Reviewed 08/21/18 @ 11:17 by Tal Leone MD) Aunt Diabetes Uncle Diabetes Motivation - Motivation to Participate On a scale of 1 to 10, how prepared are you to commit to attending program?: 10 What do you see as barriers to successfully being able to complete the program?: transportation needs What do you see as the benefits of succesfully completing the program? In other words, what do you hope to get out of participating in the program?: better health Are there issues you are dealing with that will interfere with completing the program?: none, unless blood sugars. Do you have a spouse or signficant other, family or friends who will help support you to complete the program?: yes.
[2018-09-03 11:19] VITALS: BP 122/64; PULSE 68; RESP 14; TEMP 37.1; O2SAT 97; BMI 26.9
--- NOTE | 2018-09-03 12:37 | PCM.CR.ITP ---
General Information - General Information Admitting Diagnosis: CABG, NSTEMI - Education/Goals Barriers to Learning: None Individual Counseling: Initial Assessment: Abnormal Cholesterol Levels, Overweight/Obesity, Diabetes Cardiac Rehabilitation Goals: 1. Maintain the individual as the primary focus of care. 2. To improve the patient's quality of life. 3. Identification of cardiac risk factors and provide cardiac risk factor management. 4. Enhance the psychosocial status of the patient. 5. Reconditioning enough to allow the patient to resume customary activities. 6. Control symptoms of cardiac disease Scale for measuring improvement of personal goals: Enter appropriate number in Comments. 2 = Unchanged. 3 = Slightly Better. 4 = Moderate Improvement. 5 = Met my Goal Personal Goals: Initial Assessment: Improve management of stress and emotions, Participate in home exercise program, Improve knowledge of cardiac disease, Improve diet and eating habits (eat healthier), Control risk factors (learn risk factor modification) Exercise - Initial Assessment - Visit Date of Eval: 09/03/18 Session #:: 0 - starting 09/07/2018 w/transportation scheduled - Stages of Change Stages of Change:: Action - Exercise Prescription Mode:: Treadmill, Airdyne, NuStep Angina with exercise?: No Target Heart Rate:: 112-120 - Hypertension Do any of the following apply?: Yes Peak Exercise Blood Pressure:: 122/64 - Intervention Home Exercise/Activity Goal:: Moderate Exercise 30 min/day x 5 days/wk - Education Goals:: Warm-up, RPE ERMIAS Scale, S/S, Safe Exercise, Self-Monitoring - Exercise Program Goals Exercise Program Goals: Aerobic Activity >30 min Nutrition - Initial Assessment - Program Goals Nutrition Program Goals: LDL <70. Total Cholesterol <200. HDL >45. Triglycerides <150. HgbA1C <7%. BMI <25 - Visit Date of Assessment:: 09/03/18 - Stages of Change Stages of Change:: Action - Diabetes Diabetes:: Yes Insulin: No Non-Insulin Dependent?: Yes - Weight Management Height: 5 ft 3 in Weight:: 158 lb Body Fat %:: 28 - Intervention Referral to dietitian:: No Referral to Diabetic Clinic:: No Will attend diet classes:: Yes - Education Gave educational materials for:: Signs & symptoms of hypoglycemia, Signs & symptoms of hyperglycemia, Relate diabetes to coronary artery disease, Healthy eating Tobacco - Initial Assessment - Program Goals Tobacco Program Goals: Complete smoking cessation. Attend education classes. Improve Knowledge Test score - Stage of Change Stages of Change:: Action - Learning Barriers Learning Barriers: Ready to Learn - Family Support Do you have family support?: Yes - Tobacco Use Tobacco Use: Non-smoker Do you use smokeless tobacco?: No - Intervention Smoking Cessation Referral:: No Education Schedule Given:: Yes - Education Gave educational material for:: Coronary artery disease, Risk factors, Sexuality, Medical compliance, Cardiac A&P, Angina signs & symptoms Psychosocial - Initial Assess - Target Goals Target Goals: Assess presence or absence of depression. Using a valid screening tool, maximizes coping skills. Positive support system - Stages of Change Stages of Change:: Action - Psychosocial Test Tool Used:: HANDS Depression Questionnaire - Intervention PS - Interventions: Yes Attend Stress Management Classes, No Referral to Mental Health, No Referral to [facility] Case Management, No Referral to Physician, No Uses Stress Management Skills - Education Gave educational materials for:: Coping techniques, Signs & symptoms of depression, Stress management, Relaxation techniques - Patient/Program Goal Preventative Medication(s):: Aspirin, Clopidogrel, Beta angela, Statin/lipid - Assistive Devices Assistive Devices:: None Fall Risk Assessed:: Yes Patient Health Questionnaire Initial Assessment 1. Little interest or pleasure in doing things: Not at all 2. Feeling down, depressed, or hopeless: Not at all 3. Trouble falling or staying asleep, or sleeping too much: Not at all 4. Feeling tired or having little energy: Not at all 5. Poor appetite or overeating: More than half the days 6. Feeling bad about yourself -- or that you are a failure or have let yourself or your family down: Not at all 7. Trouble concentrating on things, such as reading the newspaper or watching television: Not at all 8. Moving or speaking so slowly that other people could have noticed. Or the opposite - being so fidgety or restless that you have been moving around a lot more than usual: Not at all 9. Thoughts that you would be better off , or of hurting yourself in some way: Not at all How difficult have these problems made it for you to do your work, take care of things at home, or get along with other people?: Not difficult at all Total Score: 2 DEISY-Q SV Test - Statements CAD is a disease of the arteries in the heart: True Examples of risk factors for heart disease: True Angina is chest pain or discomfort: I Don't Know The benefits of resistance training include: True Eating more meat and dairy products: True Anti-platelet medications such as aspirin are important: True The only effective way to manage stress: True An exercise warm-up slowly increases heart rate: I Don't Know Prepared, processed foods usually have high sodium: True Depression is common after a heart attack: True The statin medications lower cholesterol: True To control blood pressure, lower the amount of sodium: True If someone gets chest discomfort during walking: I Don't Know Transfats are partially hydrogenated vegetable oils: True Sleep apnea that is not treated increases the risk: True To control cholesterol, one should become a vegetarian: True Someone knows if he/she is exercising at the right level: True Diabetes cannot be prevented with exercise & health eating: True Stress is a large risk for heart attack: True A diet that can help lower blood pressure is rich in: True - Total Score Total Correct Responses: 11 Self-Efficacy Initial Assessment We would like to know how confident you are in doing certain activities. Please select your confidence level for:: Select your confidence level for the following using the scale 1-10 where 1 is not at all confident and 10 is totally confident. Your score is the average of all 6 responses. Fatigue: How confident are you that you can keep the fatigue caused by your disease from interfering with the things you want to do? Select Number: 10 Physical Discomfort or Pain: How confident are you that you can keep the physical discomfort or pain of your disease from interfering with the things you want to do? Select Number: 10 Emotional Distress: How confident are you that you can keep the emotional distress caused by your disease from interfering with the things you want to do? Select Number: 10 Other Symptoms or Health Problems: How confident are you that you can keep other symptoms or health problems from interfering with the things you want to do? Select Number: 10 Different Tasks and Activities: How confident are you that you can do the different tasks and activities needed to manage your health condition so as to reduce your need to see a doctor? Select Number: 10 Medication: How confident are you that you can do things other than just taking medication to reduce how much your illness affects your everyday life? Select Number: 10 Total Score:: 10 Nutrition Survey - Nutrition Survey Instructions Scoring Instructions: Scoring is as follows: Yes = 1 points. No = 0 point. Patient score that is >/=12 is considered to be at potential nutritional risk and could benefit from a referral to a registered dietitian. - Nutrition Survey Initial Have you lost >10 lbs over the past 2 months without trying?: Yes Are you following a special diet at home for diabetes, low fat, or low salt?: Yes Are you interested in meeting with a dietitian for help understanding your diet?: Yes Do you eat less than 3 meals a day?: No Do you eat fatty meats (cramer, sausage, ribs, etc), fried foods, desserts, large amounts of salad dressings, margarine, butter, or cheese most days?: No Do you have food allergies? [Enter types in comment field]: No Do you eat in restaurants more than 3 times a week?: No Do you season food with salt, seasoning salt, or garlic salt?: No Do you used canned, boxed, frozen meals, or soups, seasoning packets?: No Total Score:: 3
[2018-09-03 12:43] VITALS: BP 122/64
--- OUTSIDE RECORDS SUMMARY | 2018-10-29 12:25 | XMS RPT_ITS ---
:1955 Author Organization OHIP Support Name Relationship Address Phone LIZ BEASLEY Unavailable [address] + [place] [address] UE Unavailable Unavailable Unavailable LIZ BEASLEY Unavailable [address] + [place] [address] UE Unavailable Unavailable Unavailable LIZ BEASLEY Unavailable [address] + [place] [address] UE Unavailable Unavailable Unavailable ALONZO BEASLEYDER Unavailable Unavailable + ALONZO BEASLEYDER Unavailable Unavailable + RAZIA BEASLEY Unavailable Unavailable + RAZIA BEASLEY Unavailable [address] + [place] [address] UE Unavailable Unavailable Unavailable ALONZO BEASLEYDER Unavailable [address] + [place] [address] UE Unavailable Unavailable Unavailable ALONZO BEASLEYDER Unavailable [address] + [place] [address] UE Unavailable Unavailable Unavailable ALONZO BEASLEYDER Unavailable [address] + [place] [address] UE Unavailable Unavailable Unavailable ALONZO BEASLEYDER Unavailable [address] + [place] [address] UE Unavailable Unavailable Unavailable ALONZO BEASLEYDER Unavailable [address] + [place] [address] UE Unavailable Unavailable Unavailable Care Team Providers Name Role Phone MOLLY CHANG MD Attending Unavailable MOLLY CHANG MD Admitting Unavailable MERRILL MCKINNON, DR. JERONIMO Consulting Unavailable EMMETT LOPEZ Primary Care Unavailable VENKATA VILLEGAS MD Consulting Unavailable BARBIE DUBON MD, MEKA Consulting Unavailable MERRILL EVANS., DR. JERONIMO Attending Unavailable JOHN, EMMETT Primary Care Unavailable TAMRA DANG, ELKE Santiago Attending Unavailable JOHN, EMMETT Primary Care Unavailable Miedel, Jennifer Attending Unavailable Miedel, Jennifer Referring Unavailable John, Emmett Primary Care Unavailable John, Emmett Attending Unavailable John, Emmett Primary Care Unavailable John, Emmett Primary Care Unavailable Agyepong, Atul Admitting Unavailable Sulema, Hume Consulting Unavailable Som Venegas Attending Unavailable AgyepongAtul Admitting Unavailable AgmayitopongAtul Attending Unavailable John, Emmett Primary Care Unavailable Sulema, Tal Consulting Unavailable AgyeAtul madison Consulting Unavailable Agyepong, Atul Admitting Unavailable Som Venegas Attending Unavailable John, Emmett Primary Care Unavailable Sulema, Tal Consulting Unavailable Som Venegas Consulting Unavailable Sulema, Tal Attending Unavailable Atul Rivas Referring Unavailable Sulema, Tal Attending Unavailable John, Emmett Referring Unavailable Sulema, Hume Attending Unavailable Sulema, Tal Referring Unavailable John, Emmett Primary Care Unavailable Sulema, Tal Attending Unavailable Sulema, Hume Referring Unavailable John, Emmett Primary Care Unavailable PROBLEMS PROBLEMS DATE TYPE CONDITION / CODE ATTENDING STATUS SOURCE 09/21/2018 Unknown I21.4 - Non-ST Sulema, Hume Active [facility] elevation (NSTEMI) Community myocardial infarction Hospital / I21.4(ICD-10) Repository 09/21/2018 Unknown I25.10 - Sulema, Hume Active [facility] Atherosclerotic heart Community disease of [facility] coronary artery Repository without angina pectoris / I25.10(ICD-10) 09/21/2018 Unknown Z95.1 - Presence of Sulema, Tal Active [facility] aortocoronary bypass Community graft / Z95.1(ICD-10) Hospital Repository 08/21/2018 Unknown E78.5 - Sulema, Tal Active [facility] Hyperlipidemia, Community unspecified / Hospital E78.5(ICD-10) Repository 08/21/2018 Unknown I25.5 - Ischemic Sulema, Tal Active [facility] cardiomyopathy / Community I25.5(ICD-10) Hospital Repository 08/17/2018 Unknown E11.9 - Type 2 John, Emmett Active [facility] diabetes mellitus [facility]ly [facility] without complications Hospital / E11.9(ICD-10) Repository 06/01/2018 Unknown M54.5 - Low back pain Jennifer Villegas Active [facility] / M54.5(ICD-10) [facility] Repository PROCEDURES PROCEDURES No Procedure Records FoundRESULTS RESULTS CR - HISTORY AND Observed: 09/07/2018 Status: F Source: [place] [facility] 8:41 AM [facility] Cardiac Rehab [address] [place] [address] CR - History AND Physical MR#: [id number] Acct: [id number] Name: LAURA MATTHEWS Rep #: [id number] : 1955 62 From: Emmett Jane TRANSITION OF CARE SPECIALIST, POLYMER TESTER, BS PCP: Emmett Lopez MD DOS: 09/03/18 CR - History AND Physical - General Arrival date:: 09/03/18 Arrival time:: 10:30 Date of Referral:: 08/24/18 Date of CR Evaluation:: 09/03/18 Referring Physician: Dr. Leone Primary Diagnosis: NSTEMI CABG - History of Present Cardiac Event Onset Date: Enter Onset Date of cardiac illnesses in Comment field below Acute Myocardial Infarction within 12 months:: Yes - 07/27/2018 Coronary Artery Bypass Graft:: Yes - 07/27/2018 Type of Symptoms:: tightness in chest and back was hurting. Interventions with present event:: left heart cath at [facility] and then transferred patient to [place] Were there any complications?: none - Medications Home Medications: Ambulatory Orders Medication Instructions Recorded Dm Natural Med 1 cap PO BID 07/23/18 aspirin 81 mg tablet,delayed 81 mg PO DAILY 08/21/18 release atorvastatin 40 mg tablet 40 mg PO DAILY 08/21/18 - Allergies Allergies/Adverse Reactions: Allergies No Known Allergies Allergy (Verified 08/21/18 10:43) - Sleep Disorder Evaluation Hx of Sleep Apnea: No Do you snore loudly (louder than talking or can be heard through closed doors)?: No Do you often feel tired/ fatigued/ sleepy during daytime?: No Has anyone observed you stop breathing during sleep?: No History of Hypertension (for STOP score): No STOP Results: Negative Advanced Directives - Advanced Directives Power of Radio Electronics Officer: No Living Will: No Advance Directives Information Provided: Yes Advance Directives on File: No DNR Order?:: No - MOLST See MOLST form: No Past Medical History - Past Medical Illness Medical History: Past Medical History (Last Reviewed 08/21/18 @ 11:17 by Tal Leone MD) Atherosclerosis of coronary artery of [place] heart without angina pectoris (Chronic) I25.10 Non-ST elevation IA (NSTEMI) (Resolved) I21.4 Type 2 diabetes mellitus E11.9 - Past Surgical History Surgical History: Past Surgical History (Last Reviewed 08/21/18 @ 11:17 by Tal Leone MD) H/O coronary artery bypass surgery (Acute) Onset Date: 07/27/18 Z95.1 CABG x [address] [place] [address] Toni Cox History of left heart catheterization Onset Date: 07/23/18 Z98.890 Surgical History: cholecystectomy, hysterectomy, - - Neck surgery cervical fusion - Family History Summary Family History: Family History (Last Reviewed 08/21/18 @ 11:17 by Tal Leone MD) Aunt Diabetes Uncle Diabetes Social History - Smoking History Smoking Status: Never smoker Hx Tobacco Use: No Hx Smoking Exposure: No - Alcohol Use Alcohol Usage: No - Substance Abuse Hx Substance Use: No - Occupation Occupation (List type of work in comments):: Employed - worked a couple of days per week; 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, Homemaker - Hobbies, Recreation, Social Activities Hobbies: Sewing - make cards crafts, embroidery sew, clean, Other Recreational Activities: I am able to engage in all my recreational activities Social Environment - Status Marital Status: - Current Living Arrangements Living Environment:: Alone - in law suite connected to daughters home - Children How many children do you have?: 12 Do any of your children live nearby?: Yes - Safety Do you feel safe in your surroundings?: Yes - Assistance Do you need any assistance at home?: none Review of Systems - Review of Systems Hints: Right click = Denies (Slash). Left click = Reports ([place]) Review of Present Symptoms: Reports: Wound Healing, Appetite - Special Diet - Follows diabetic diet, low fat low salt., Sleep - Normal. Denies: Shortness of Breath at Rest, Shortness of Breath with Exertion, Operative Discomfort, Dizziness/Lightheadedness, Fatigue, Heart Arrhythmia/Irregularities, Appetite - Normal - not quite back to normal, taste is not quite back yet. - Pain Is Patient Pain Free?: Yes Pain Location: none Risk Factor Assessment - Chief Complaint Chief Complaint: Patient is a very pleasent female of Dr. Tyler who presents to cardiac rehab today following recent NSTEMI, left heart cath, and subsequent CABG done at [facility] on 07/27/2018 - Vital Signs Temperature: 98.7 F Respiratory Rate: 14 Pulse Ox: 97 Blood Pressure: 122/64 Nailbeds:: pink - Pulse Pulse Rate: 68 Pulse Rhythm: Regular - Hypertension Blood Pressure Sitting - Left Arm: 122/64 - Stress Stress: Recent - Diabetes Diabetic History: Type II, Medication Dependent - Obesity Height: 5 ft 3 in Weight:: 152 lb Weight in Pounds: 152.0 lbs Weight Source: Estimated by Patient Body Mass Index (BMI): 26.9 Nutritional Referral for Obesity: No - Physical Inactivity Physical Inactivity: Reg Exercise 30 min/day - Risk Stratification Risk Guidelines: Lowest Risk: Risk Factor for Smoking, Risk Factor for Dyslipidemia, Risk Factor for Diabetes, Risk Factor for Obesity, Risk Factor for Hypertension, Risk Factor for Sedentary Lifestyle, Risk Factor for Depression - For Smoking Smoking Risk Guidelines: Smoking Low Risk: None or quit greater than 6 months ago. Smoking Moderate Risk: Smoker or quit 6 months or less ago. Smoking High Risk: Smoker - For Dyslipidemia Dyslipidemia Risk Guidelines: Low Risk: Moderate Risk: High Risk: 15-25% fat 25.1-29% fat >/= 30% fat. <7% sat fat 7-9% sat fat >9% sat fat. <150 mg chol 150-299 mg chol >/= 300 mg chol. LDL <100 LDL 100-129 LDL >/= 130. Chol/HDL ratio <5.0 Chol/HDL ratio 5.0-6.0 Chol/HDL ratio >6.0. Triglycerides <100 Triglycerides 100-149 Triglycerides >/= 150 - For Diabetes Mellitus Diabetes Risk Guidelines: Diabetes Low Risk: HgA1c <6.5% and/or FBG <120. Diabetes Moderate Risk: HgA1c 6.6-7.9% and/or FBG 120- 180. Diabetes High Risk: HgA1c >/= 8% and/or FBG >180 - For Obesity/Overweight Obesity/Overweight Risk Guidelines: Obesity Low Risk: BMI <25.0. Obesity Moderate Risk: BMI 25-29.9. Obesity High Risk: BMI >/= 30.0 - For Hypertension Hypertension Risk Guidelines: Hypertension Low Risk: Systolic <120 and Diastolic <80. Hypertension Moderate Risk: Systolic 120-139 and Diastolic 80-89. Hypertension High Risk: Systolic >/= 140 and Diastolic >/= 90 - For Sedentary Lifestyle Sedentary Lifestyle Risk Guidelines: Sedentary Lifestyle Low Risk: >/= 1,500 kcal/week. Sedentary Lifestyle Moderate Risk: 700-1,499 kcal/week. Sedentary Lifestyle High Risk: < 700 kcal/week - For Depression Depression Risk Guidelines: Depression Low Risk: Not clinically depressed. Depression Moderate Risk: Mildly depressed. Depression High Risk: Clinically depressed - Family History Family History: Family History (Last Reviewed 08/21/18 @ 11:17 by Tal Leone MD) Aunt Diabetes Uncle Diabetes Motivation - Motivation to Participate On a scale of 1 to 10, how prepared are you to commit to attending program?: 10 What do you see as barriers to successfully being able to complete the program?: transportation needs What do you see as the benefits of succesfully completing the program? In other words, what do you hope to get out of participating in the program?: better health Are there issues you are dealing with that will interfere with completing the program?: none, unless blood sugars. Do you have a spouse or signficant other, family or friends who will help support you to complete the program?: yes. 09/03/18 1119 <Electronically signed by Emmett Jane CRT, RCP, BS> Date Emmett Jane CRT, RCP, BS Outcome assessment reviewed. Exercise plan approved as documented. Treatment plan and goals support patient needs/abilities. Continue with current plan. I certify the patient demonstrates improvement and remains willing and capable of participation. the patient continues to benefit from cardiac rehab services/training. The patient may continue at current intensity, endurance and modality and progress per protocol. 09/07/18 0841 <Electronically signed by Tal Leone MD> Cosigner Signature: Date Tal Leone MD CC: Signed CARDIOLOGY VISIT Observed: 08/21/2018 Status: F Source: [place] REPORT 11:22 AM [facility] [address] [place] [address] OFFICE VISIT Date of Service: 08/21/18 MR#: [id number] Acct: [id number] Name: LAURA MATTHEWS Rep #: [id number] : 1955 Provider: Tal Leone MD Age/Sex: 62/F [place] [facility] Status: Signed HPI HPI Chief Complaint: Follow up Details: LAURA MATTHEWS, is a 62 F who presents to the office today for a follow-up posthospitalization visit. You remember she had presented with chest discomfort in July of this year and was noted to have mildly abnormal cardiac enzymes. She underwent a cardiac catheterization which demonstrated triple-vessel disease involving the left main coronary artery with mild calcification, proximal left anterior descending artery with a 90% eccentric stenosis in the mid 80% mid stenosis, mid circumflex artery with a long 90% stenosis in the first obtuse marginal branch with a 90% stenosis. The right coronary artery had multiple 80% stenosis in the posterior descending artery. Her ejection fraction was noted to be 45% with anterior hypokinesis. She underwent two-vessel coronary bypass surgery at [facility] and has done well since. She has been compliant with her medication she is no longer on her diuretics. She denies any neck arm or jaw discomfort to suggest angina her physical exam demonstrates clear lung reyes regular rate and rhythm no pedal edema her electrocardiogram demonstrates normal sinus rhythm with a rate of 78 bpm and T wave inversions noted in the lateral leads. Intake Vital Signs08/21/18 Height 5 ft 3 in Intake Visit Reasons: SHANICE Jimenez post CABG 07-31 (NEW to [facility]) Allergies No Known Allergies Allergy (Verified 08/21/18 10:43) Medications Dm Natural Med 1 cap PO BID 07/23/18 [History Confirmed 08/21/18] aspirin 81 mg tablet,delayed release 81 mg PO DAILY 08/21/18 [History Confirmed 08/21/18] atorvastatin 40 mg tablet 40 mg PO DAILY 08/21/18 [History Confirmed 08/21/18] glipizide 5 mg tablet 5 mg PO DAILY 08/21/18 [History Confirmed 08/21/18] lisinopril 2.5 mg tablet 2.5 mg PO DAILY #90 tab 08/21/18 [Rx Confirmed 08/21/18] metoprolol tartrate 25 mg tablet 25 mg PO BID 08/21/18 [History Confirmed 08/21/18] PFSH Medical History Atherosclerosis of coronary artery of [place] heart without angina pectoris (Chronic) Non-ST elevation IA (NSTEMI) (Resolved) Type 2 diabetes mellitus (Chronic) Surgical History H/O coronary artery bypass surgery (Acute 07/27/18) History of left heart catheterization (Resolved 07/23/18) Family History Aunt Diabetes Uncle Diabetes Social History Smoking Status: Never smoker ROS Const Const: Negative for fatigue, weakness, difficulty sleeping, frequent falls, excessive sweating or headache(s) Eyes Eyes: Negative for loss of peripheral vision, transient loss of vision, blurry vision, tunnel vision or double vision ENT ENT: Negative for headache(s), dizziness, Nosebleed/epistaxis or balance problems Cardio Chest Pain: No Palpitations: No Edema: None Muscle aches with walking: None Additional Details: Midline sternum incision well approx no drainage.. LLE SVG harvest sites w/o redness and drainage Resp Respiratory: Negative for SOB with activity, SOB at rest, SOB orthopnea\SOB lying down, paroxysmal nocturnal dyspnea or Cough GI GI: Negative nausea, heartburn, black,tarry stools or vomiting : Negative for hematuria Musc Musc: Negative for balance problems, muscle aches/ myalgia, muscle weakness or joint pain Skin Skin: Negative non-healing lesions, unusual bruising or rash Neuro Neuro: Negative for weakness, frequent falls, headache(s), blurry vision, double vision, dizziness, lightheadedness, orthostatic symptoms, near syncope, syncope or lack of coordination Michel Hematologic/Lymphatic: Negative for easy bruising or easy bleeding Endo Endo: Negative for fatigue, excessive sweating or increased thirst/drinking Psych Psych: Negative for anxiety or depression Allergy Allergy/Immunology: Negative for hives, Negative for rash Cardiology Exam Const Appearance: cooperative, healthy appearing, well developed, well groomed and no acute distress Nutritional Appearance: well nourished and average body habitus Orientation: alert, awake and oriented x3 Head Head: normal to inspection, normocephalic and atraumatic Ears: hearing grossly normal bilaterally and external ears normal Nose: external nose normal, nasal mucous membranes and turbinates normal, nares normal, septum normal, no nasal discharge Face and Sinus: face symmetric Mouth: oral mucosae normal, tongue normal, oropharynx normal and moist mucous membranes Teeth and gingiva: dentition normal Throat: posterior oropharynx normal, tonsils normal and uvula midline Eyes General: appearance normal, both eyes and all related structures Eyelids: eyelids normal Conjunctivae: conjunctivae normal Pupils: PERRL, normal by confrontation and accommodation normal EOM: EOM intact bilaterally Neck Neck: normal visual inspection, trachea midline and no JVD JVD: +5 Carotids: normal carotid upstroke and bounding pulses Chest Chest inspection: normal inspection of the chest, symmetric chest movement and normal respiratory effort Auscultation: Bilateral: Clear to Auscultation Cardio Palpation: normal PMI Rate: regular rate Rhythm: regular rhythm Heart sounds: S1 normal, S2 normal and normal, physiologic split S2; negative rub, gallop or murmur GI GI: normal to inspection, soft, no hepatosplenomegaly and bowel sounds present Neuro General: alert, awake, oriented x3, no focal sensory deficit, gait normal and moves all extremities Skin Skin: no rashes or lesions noted Extremities Pulses: Normal: Right Femoral Pulse, Left Femoral Pulse, Right Dorsalis Pedis Pulse, Left Dorsalis Pedis Pulse, Right Posterior Tibial Pulse, Left Posterior Tibial Pulse, Right Radial Pulse, Left Radial Pulse Lower Extremity Edema: None: Bilateral Musculoskel Musculoskeletal: No joint tenderness Psych Psychological: normal affect Assessment AND Plan 1. H/O coronary artery bypass surgery Z95.1 CABG x 2 @ [facility] [address] Toni Cox Plan She is status post coronary bypass surgery and currently is doing well she will remain on the aspirin atorvastatin and beta-babs. I have asked her to take Tylenol for pain and Benadryl to help her sleep at night. You do remember that she has mildly reduced left ventricular ejection fraction we will repeat echocardiogram at her next visit in approximately 4 months. Orders Orders: Referrals: 2. Non-ST elevation IA (NSTEMI) I21.4 Plan She is status post non-ST elevation myocardial infarction and will remain on aspirin high intensity statin and beta-babs. She will start cardiac rehabilitation if possible. Orders Orders: Referrals: 3. Hyperlipidemia E78.5 Plan She has a history of hyperlipidemia with her most recent lipid profile demonstrating a total cholesterol 189, LDL 104 and HDL of 63. She will continue to remain on her high intensity statin. Thank you for allowing me to participate in the care of your patient. Please don't hesitate to call if any issues arise 4. Ischemic cardiomyopathy I25.5 Plan She does have mild ischemic cardiomyopathy. She will continue with the beta-babs. With her being a diabetic I would suggest the addition of a low-dose ESTEBAN inhibitor as well. As noted previously we will repeat her echocardiogram in approximately 3-4 months. Plan Detail Other Orders Orders: Referrals: Other Medications New: Discontinued: Follow Up 4 Months (mmm) Coding Level of Care Code Off vis,est,level 4 Diagnoses H/O coronary artery bypass surgery Z95.1 Non-ST elevation IA (NSTEMI) I21.4 Hyperlipidemia E78.5 Ischemic cardiomyopathy I25.5 Coding Level of Care Code Off vis,est,level 4 Diagnoses H/O coronary artery bypass surgery Z95.1 Non-ST elevation IA (NSTEMI) I21.4 Hyperlipidemia E78.5 Ischemic cardiomyopathy I25.5 08/21/18 1122 <Electronically signed by Tal Leone MD> Date Tal Leone MD Cosigner Signature: Date (if applicable) CC: Emmett Lopez MD 12 LEAD EKG PERFORMED Observed: 08/21/2018 Status: F Source: [facility] [facility] [place] [id number] [place] [address] 12 Lead E[place] [facility] [place]1810[place] MR#: [id number] Acct: [id number] Name: LAURA MATTHEWS Rep #: [id number] : 1955 62 From: Tal Leone MD Attending Dr: Tal Leone MD Status: DEP AMB Ordering Dr: Tal Leone MD Date: 08/21/18 [place] [facility] Sex: F C Admitted: BMS/12 Lead EKG performed [place] [facility] Sinus Rhythm - Negative T-waves - Lateral ischemia. ABNORMAL 08/24/18 1534 <Electronically signed by Tal Leone MD> Date Tal Leone MD CC: Emmett Lopez MD Date Dictated: 08/21/181042 Date Transcribed: 08/21/181042 Tower Erector Helper: CO Signed XR CHEST 2 VIEWS Observed: 08/11/2018 Status: F Source: [facility] 11:47 AM [facility] REPOS[facility] ORIGINAL Chest 2 views HISTORY: Pleural effusion COMPARISON: 07/31/2018 The heart is normal in size and there is no vascular congestion present. There is some linear atelectasis at the LEFT lung base. Previously seen LEFT basilar consolidation has improved. No pleural fluid seen and no new infiltrates are visible. There are degenerative changes noted in the spine. IMPRESSION: Linear atelectasis LEFT lung base. Resolution of small pleural effusions. Interpreted By: Jose Torre MD Preliminary Report By: Jose Torre MD Electronically Signed By: Jose Torre MD Dictated Date: 08/11/2018 11:53:08 AM Prelim Date: 08/11/2018 11:53:08 AM Sign Date: 08/11/2018 11:53:47 AM 12 LEAD ELECTROCARDIOGRAM Observed: 08/04/2018 Status: F Source: [place] 8:25 AM [facility] Cardiovascular Services [address] [place] [address] 12 Lead EKG 07/23/1814 MR#: [id number] Acct: [id number] Name: MATTHEWSLAURA Rep #: [id number] : 1955 62 From: Salvador Whitmore MD Attending Dr: Som Venegas DO Status: DIS IN Ordering Dr: Chetan Camilo DO Date: 07/23/18 Location: [facility] Sex: F C Admitted: 07/23/18 Test Reason : CP Blood Pressure : / mmHG Vent. Rate : 104 BPM Atrial Rate : 104 BPM P-R Int : 152 ms QRS Dur : 082 ms QT Int : 350 ms P-R-T Axes : 071 -29 047 degrees QTc Int : 460 ms Sinus tachycardia Septal infarct , age undetermined Abnormal ECG Possible inferior ischemia Confirmed by SALVADOR WHITMORE ([id number]), editor in chief newspaper [employer] ([id number]) on 08/04/2018 8:24:45 AM Referred By: RU Confirmed By:SALVADOR WHITMORE 08/04/18 0824 Date Salvador Whitmore MD CC: Som Venegas DO; Cehtan Camilo DO; Emmett Lopez MD Signed 12 LEAD ELECTROCARDIOGRAM Observed: 08/04/2018 Status: F Source: [place] 8:24 AM [facility] Cardiovascular Services [address] [place] [id number] 12 Lead EKG 07/23/18 0604 MR#: [id number] Acct: [id number] Name: MATTHEWSLAURA SMITH Rep #: [id number] : 1955 62 From: Salvador Whitmore MD Attending Dr: Som Venegas DO Status: DIS IN Ordering Dr: Chetan Camilo DO Date: 07/23/18 Location: [facility] Sex: F C Admitted: 07/23/18 Test Reason : INNCREASED TROPONIN Blood Pressure : / mmHG Vent. Rate : 080 BPM Atrial Rate : 080 BPM P-R Int : 150 ms QRS Dur : 078 ms QT Int : 404 ms P-R-T Axes : 061 -12 082 degrees QTc Int : 465 ms Normal sinus rhythm Septal infarct , age undetermined Abnormal ECG Confirmed by SALVADOR WHITMORE ([id number]), editor in chief newspaper [employer] ([id number]) on 08/04/2018 8:24:08 AM Referred By: RU Confirmed By:SALVADOR WHITMORE 08/04/18 0824 Date Salvador Whitmore MD CC: Som Venegas DO; Chetan Camilo DO; Emmett Lopez MD Signed XR CHEST 2 VIEWS Observed: 07/31/2018 Status: F Source: [facility] 5:56 AM [facility] OR[facility] Clinical history: Abnormal breath sounds. Cardiac surgery postoperative day 4. COMPARISON: Chest x-ray on 07/29/2018. PA and lateral radiographs of the chest were obtained. LEFT subclavian central venous catheter tip is in the superior vena cava. Pigtail drain is positioned beneath the LEFT diaphragm. Small bilateral pleural effusions and small bilateral lower lobe infiltrates are not significantly changed. There is no pneumothorax. No pulmonary edema is present. No new abnormality has developed. IMPRESSION: Stable appearance of small lateral pleural effusions and small bilateral lower lobe infiltrates that are likely atelectasis. Interpreted By: Néstor Putnam MD Preliminary Report By: Néstor Putnam MD Electronically Signed By: Néstor Putnam MD Dictated Date: 07/31/2018 5:59:28 AM Prelim Date: 07/31/2018 5:59:28 AM Sign Date: 07/31/2018 6:01:08 AM CBC Collected: 07/31/2018 Status: F Source: [employer] 3:57 AM [facility] REPOSITORY TYPE CODE TESTS RESULT OUT OF REFERENCE UNITS RANGE LAB WBC(LOINC) 4.50-10.80 10 3/mcL WBC 8.30 LAB RBCCT(LOINC 4.10-5.30 10 6/mcL ) Low RBC 3.69 LAB HGB(LOINC) 12.0-16.0 G/dL Low Hgb 10.3 LAB HCT(LOINC) 34.0-46.0 % Low Hct 31.1 LAB MCV(LOINC) 80.0-99.0 fL MCV 84.5 LAB MCH(LOINC) 27.0-33.0 pg MCH 27.9 LAB MCHC(LOINC) 32.0-36.0 G/dL MCHC 33.0 LAB RDW(LOINC) 11.5-15.5 % RDW 13.8 LAB PLT(LOINC) 150-450 10 3/mcL Platelet 209 LAB MPV(LOINC) 6.6-10.5 fL MPV 8.8 Performed By: #### BMP, ANEU, ADIFF, CBC, GFR #### [address] [address] .AUTO DIFF Collected: 07/31/2018 Status: F Source: [employer] 3:57 AM [facility] REPOSITORY TYPE CODE TESTS RESULT OUT OF REFERENCE UNITS RANGE LAB ALEX(LOINC) 50.0-75.0 % Neutrophil % 55.0 LAB LYM(LOINC) 20.0-40.0 % Lymphocyte % 30.1 LAB MON(LOINC) 2.0-13.0 % Monocyte % 9.4 LAB EO(LOINC) 0.0-6.0 % Eosinophil % 4.9 LAB BAS(LOINC) 0.0-2.5 % Basophil % 0.6 LAB ABLYM(LOIN 0.90-4.32 10 3/mcL C) Lymphocyte, 2.50 Absolute LAB VANESSA(LOINC 0.09-1.40 10 3/mcL ) Monocyte, 0.80 Absolute LAB AEOS(LOINC 0.00-0.65 10 3/mcL ) Eosinophil, 0.40 Absolute LAB ABAS(LOINC 0.00-0.27 10 3/mcL ) Basophil, 0.00 Absolute Performed By: #### BMP, ANEU, ADIFF, CBC, GFR #### [place] [address] .NEUABS Collected: 07/31/2018 Status: F Source: [facility] 3:57 AM [facility] REPOSITORY TYPE CODE TESTS RESULT OUT OF REFERENCE UNITS RANGE LAB ANEU(LOINC) 2.25-8.10 10 3/mcL Neutrophil, 4.50 Absolute Performed By: #### BMP, ANEU, ADIFF, CBC, GFR #### [address] [address] BMP Collected: 07/31/2018 Status: F Source: [facility] 3:57 AM [facility] REPOSITORY TYPE CODE TESTS RESULT OUT OF REFERENCE UNITS RANGE LAB GLU(LOINC) 82-115 mg/dL Glucose High Level 138 LAB NA(LOINC) 136-145 mEq/L Sodium Level 143 LAB K(LOINC) 3.5-5.0 mEq/L Potassium Level 4.3 LAB CL(LOINC) 98-110 mEq/L Chloride 108 LAB CO2(LOINC) 22-32 mEq/L CO2 26 LAB EBAL(LOINC 4.0-15.0 mEq/L ) Electrolyte Balance 9.0 LAB BUN(LOINC) 8.0-22.0 mg/dL BUN 15.0 LAB CRE(LOINC) 0.50-1.20 mg/dL Creatinine Lvl (s) 0.60 LAB BC(LOINC) 10.0-22.0 ratio High BUN/Creatinine 25.0 Ratio LAB CA(LOINC) 8.4-10.1 mg/dL Low Calcium Lvl 7.9 Performed By: #### BMP, ANEU, ADIFF, CBC, GFR #### [place] [address] .GFR Collected: 07/31/2018 Status: F Source: [facility] 3:57 AM [facility] TYPE CODE TESTS RESULT OUT OF REFERENCE UNITS RANGE LAB GFRAA(LOINC ml/min/1.73 ) sqm GFR >60 [place] Result Comment: GFR Population mean for , Non- Americans Ages 20-29 = 116 mL/min/1.73 sq.m. Ages 30-39 = 107 mL/min/1.73 sq.m. Ages 40-49 = 99 mL/min/1.73 sq.m. Ages 50-59 = 93 mL/min/1.73 sq.m. Ages 60-69 = 85 mL/min/1.73 sq.m. Ages 70+ = 75 mL/min/1.73 sq.m. Chronic Kidney Disease: Less than 60 mL/min/1.73 square meters End Stage Renal Disease: Less than 15 mL/min/1.73 square meters LAB GFRNO(LOINC) ml/min/1.73sqm GFR Non- >60 Result Comment: GFR Population mean for , Non- Americans Ages 20-29 = 116 mL/min/1.73 sq.m. Ages 30-39 = 107 mL/min/1.73 sq.m. Ages 40-49 = 99 mL/min/1.73 sq.m. Ages 50-59 = 93 mL/min/1.73 sq.m. Ages 60-69 = 85 mL/min/1.73 sq.m. Ages 70+ = 75 mL/min/1.73 sq.m. Chronic Kidney Disease: Less than 60 mL/min/1.73 square meters End Stage Renal Disease: Less than 15 mL/min/1.73 square meters Performed By: #### BMP, ANEU, ADIFF, CBC, GFR #### [place] [address] XR CHEST 2 VIEWS Observed: 07/29/2018 Status: F Source: [facility] 6:16 AM [facility] REPOSITORY ORIGINAL Clinical history: Abnormal breath sounds. Follow-up after cardiac surgery. Postoperative day 2. COMPARISON: Chest x-ray on 07/28/2018. PA and lateral radiographs of the chest were obtained. LEFT subclavian central venous catheter tip is in the superior vena cava. Pigtail drainage catheter is positioned in the LEFT upper quadrant of the abdomen. The LEFT chest tube has been removed since chest x-ray on the prior day. There is minimal bilateral pleural fluid with mild bilateral lower lobe atelectasis. The lungs show improved expansion compared with chest x-ray on the prior day. There is no pneumothorax. No pulmonary edema is present. IMPRESSION: LEFT chest tube removed with no pneumothorax. Small bilateral pleural effusions with mild bilateral basilar atelectasis. Interpreted By: Néstor Putnam MD Preliminary Report By: Néstor Putnam MD Electronically Signed By: Néstor Putnam MD Dictated Date: 07/29/2018 6:55:58 AM Prelim Date: 07/29/2018 6:55:58 AM Sign Date: 07/29/2018 6:57:57 AM CBC Collected: 07/29/2018 Status: F Source: [facility] 4:14 AM [facility] REPOSITORY TYPE CODE TESTS RESULT OUT OF REFERENCE UNITS RANGE LAB WBC(LOINC) 4.50-10.80 10 3/mcL High WBC 11.20 LAB RBCCT(LOINC 4.10-5.30 10 6/mcL ) Low RBC 3.20 LAB HGB(LOINC) 12.0-16.0 G/dL Low Hgb 9.0 LAB HCT(LOINC) 34.0-46.0 % Low Hct 27.0 LAB MCV(LOINC) 80.0-99.0 fL MCV 84.1 LAB MCH(LOINC) 27.0-33.0 pg MCH 28.2 LAB MCHC(LOINC) 32.0-36.0 G/dL MCHC 33.5 LAB RDW(LOINC) 11.5-15.5 % RDW 13.8 LAB PLT(LOINC) 150-450 10 3/mcL Low Platelet 148 LAB MPV(LOINC) 6.6-10.5 fL MPV 9.5 Performed By: #### GFR, CBC, ANEU, ADIFF, BMP #### [address] [address] .AUTO DIFF Collected: 07/29/2018 Status: F Source: [facility] 4:14 AM [facility] REPOSITORY TYPE CODE TESTS RESULT OUT OF REFERENCE UNITS RANGE LAB ALEX(LOINC) 50.0-75.0 % Neutrophil % 64.8 LAB LYM(LOINC) 20.0-40.0 % Lymphocyte % 26.6 LAB MON(LOINC) 2.0-13.0 % Monocyte % 7.6 LAB EO(LOINC) 0.0-6.0 % Eosinophil % 0.8 LAB BAS(LOINC) 0.0-2.5 % Basophil % 0.2 LAB ABLYM(LOIN 0.90-4.32 10 3/mcL C) Lymphocyte, 3.00 Absolute LAB VANESSA(LOINC 0.09-1.40 10 3/mcL ) Monocyte, 0.80 Absolute LAB AEOS(LOINC 0.00-0.65 10 3/mcL ) Eosinophil, 0.10 Absolute LAB ABAS(LOINC 0.00-0.27 10 3/mcL ) Basophil, 0.00 Absolute Performed By: #### GFR, CBC, ANEU, ADIFF, BMP #### [address] [address] .NEUABS Collected: 07/29/2018 Status: F Source: [facility] 4:14 AM [facility] REPOSITORY TYPE CODE TESTS RESULT OUT OF REFERENCE UNITS RANGE LAB ANEU(LOINC) 2.25-8.10 10 3/mcL Neutrophil, 7.20 Absolute Performed By: #### GFR, CBC, ANEU, ADIFF, BMP #### [address] [address] .GFR Collected: 07/29/2018 Status: F Source: [facility] 4:14 AM [facility] REPOSITORY TYPE CODE TESTS RESULT OUT OF REFERENCE UNITS RANGE LAB GFRAA(LOINC ml/min/1.73 ) sqm GFR >60 [place] Result Comment: GFR Population mean for , Non- Americans Ages 20-29 = 116 mL/min/1.73 sq.m. Ages 30-39 = 107 mL/min/1.73 sq.m. Ages 40-49 = 99 mL/min/1.73 sq.m. Ages 50-59 = 93 mL/min/1.73 sq.m. Ages 60-69 = 85 mL/min/1.73 sq.m. Ages 70+ = 75 mL/min/1.73 sq.m. Chronic Kidney Disease: Less than 60 mL/min/1.73 square meters End Stage Renal Disease: Less than 15 mL/min/1.73 square meters LAB GFRNO(LOINC) ml/min/1.73sqm GFR Non- >60 Result Comment: GFR Population mean for , Non- Americans Ages 20-29 = 116 mL/min/1.73 sq.m. Ages 30-39 = 107 mL/min/1.73 sq.m. Ages 40-49 = 99 mL/min/1.73 sq.m. Ages 50-59 = 93 mL/min/1.73 sq.m. Ages 60-69 = 85 mL/min/1.73 sq.m. Ages 70+ = 75 mL/min/1.73 sq.m. Chronic Kidney Disease: Less than 60 mL/min/1.73 square meters End Stage Renal Disease: Less than 15 mL/min/1.73 square meters Performed By: #### GFR, CBC, ANEU, ADIFF, BMP #### [address] [address] BMP Collected: 07/29/2018 Status: F Source: [facility] 4:14 AM [facility] REPOSITORY TYPE CODE TESTS RESULT OUT OF REFERENCE UNITS RANGE LAB GLU(LOINC) 82-115 mg/dL Glucose Level 115 LAB NA(LOINC) 136-145 mEq/L Sodium Level 142 LAB K(LOINC) 3.5-5.0 mEq/L Potassium Level 4.1 LAB CL(LOINC) 98-110 mEq/L Chloride 108 LAB CO2(LOINC) 22-32 mEq/L CO2 27 LAB EBAL(LOINC 4.0-15.0 mEq/L ) Electrolyte Balance 7.0 LAB BUN(LOINC) 8.0-22.0 mg/dL BUN High 31.0 LAB CRE(LOINC) 0.50-1.20 mg/dL Creatinine Lvl (s) 0.78 LAB BC(LOINC) 10.0-22.0 ratio High BUN/Creatinine 39.7 Ratio LAB CA(LOINC) 8.4-10.1 mg/dL Low Calcium Lvl 8.0 Performed By: #### GFR, CBC, ANEU, ADIFF, BMP #### [place] [address] XR CHEST 1 VIEW Observed: 07/28/2018 Status: F Source: [facility] 5:07 AM [facility] REPOSITORY ORIGINAL Clinical history: Abnormal breath sounds. COMPARISON: Chest x-ray on 07/27/2018. Portable AP radiograph of the chest was obtained at 5:15 AM. The endotracheal tube and the enteric tube have been removed. Mediastinal drains and the LEFT chest tube are unchanged in position. There is a pigtail drainage catheter loop positioned over LEFT upper abdomen. There is mild bilateral basilar atelectasis that has developed since the prior day. No pneumothorax or significant pleural fluid is visible. IMPRESSION: Patient has been extubated. Mild bilateral basilar atelectasis. Interpreted By: Néstor Putnam MD Preliminary Report By: Néstor Putnam MD Electronically Signed By: Néstor Putnam MD Dictated Date: 07/28/2018 6:17:26 AM Prelim Date: 07/28/2018 6:17:26 AM Sign Date: 07/28/2018 6:20:11 AM BG Collected: 07/28/2018 Status: F Source: [facility] 3:49 AM [facility] REPOSITORY TYPE CODE TESTS RESULT OUT OF REFERENCE UNITS RANGE LAB PH(LOINC) 7.380-7.460 pH 7.412 LAB PCO2(LOINC 32.0-46.0 mmHg ) pCO2 36.9 LAB PO2(LOINC) 74.0-108.0 mmHg pO2 High 152.1 LAB HCO3(LOINC 21.0-29.0 mmol/L ) HCO3 23.0 LAB TCO2(LOINC 22.0-30.0 mmol/L ) CO2 Totl 24.1 LAB BE(LOINC) mmol/L Base Excess -1.2 LAB O2SAT(LOIN 92.0-96.0 % C) O2 Sat High 99.0 LAB BPRES(LOIN mmHg C) Barometric 737 Pressure Performed By: #### BG #### [address] [address] CBC Collected: 07/28/2018 Status: F Source: [facility] 3:49 AM [facility] REPOSITORY TYPE CODE TESTS RESULT OUT OF REFERENCE UNITS RANGE LAB WBC(LOINC) 4.50-10.80 10 3/mcL High WBC 16.40 LAB RBCCT(LOINC 4.10-5.30 10 6/mcL ) Low RBC 3.75 LAB HGB(LOINC) 12.0-16.0 G/dL Low Hgb 10.5 LAB HCT(LOINC) 34.0-46.0 % Low Hct 31.5 LAB MCV(LOINC) 80.0-99.0 fL MCV 84.0 LAB MCH(LOINC) 27.0-33.0 pg MCH 27.9 LAB MCHC(LOINC) 32.0-36.0 G/dL MCHC 33.3 LAB RDW(LOINC) 11.5-15.5 % RDW 14.0 LAB PLT(LOINC) 150-450 10 3/mcL Platelet 209 LAB MPV(LOINC) 6.6-10.5 fL MPV 9.4 Performed By: #### CBC, GFR, CMP, ANEU, ADIFF #### [address] [address] .AUTO DIFF Collected: 07/28/2018 Status: F Source: [facility] 3:49 AM [facility] REPOSITORY TYPE CODE TESTS RESULT OUT OF REFERENCE UNITS RANGE LAB ALEX(LOINC) 50.0-75.0 % High Neutrophil % 81.1 LAB LYM(LOINC) 20.0-40.0 % Low Lymphocyte % 10.2 LAB MON(LOINC) 2.0-13.0 % Monocyte % 8.6 LAB EO(LOINC) 0.0-6.0 % Eosinophil % 0.0 LAB BAS(LOINC) 0.0-2.5 % Basophil % 0.1 LAB ABLYM(LOIN 0.90-4.32 10 3/mcL C) Lymphocyte, 1.70 Absolute LAB VANESSA(LOINC 0.09-1.40 10 3/mcL ) Monocyte, 1.40 Absolute LAB AEOS(LOINC 0.00-0.65 10 3/mcL ) Eosinophil, 0.00 Absolute LAB ABAS(LOINC 0.00-0.27 10 3/mcL ) Basophil, 0.00 Absolute Performed By: #### CBC, GFR, CMP, ANEU, ADIFF #### [place] [address] .NEUABS Collected: 07/28/2018 Status: F Source: [facility] 3:49 AM [facility] REPOSITORY TYPE CODE TESTS RESULT OUT OF REFERENCE UNITS RANGE LAB ANEU(LOINC) 2.25-8.10 10 3/mcL High Neutrophil, 13.30 Absolute Performed By: #### CBC, GFR, CMP, ANEU, ADIFF #### [place] [address] CMP Collected: 07/28/2018 Status: F Source: [facility] 3:49 AM [facility] REPOSITORY TYPE CODE TESTS RESULT OUT OF REFERENCE UNITS RANGE LAB GLU(LOINC) 82-115 mg/dL Glucose Level 97 LAB NA(LOINC) 136-145 mEq/L Sodium High Level 146 LAB K(LOINC) 3.5-5.0 mEq/L Potassium Level 4.8 LAB CL(LOINC) 98-110 mEq/L Chloride High 113 LAB CO2(LOINC) 22-32 mEq/L CO2 24 LAB EBAL(LOINC 4.0-15.0 mEq/L ) Electrolyte Balance 9.0 LAB BUN(LOINC) 8.0-22.0 mg/dL BUN 15.0 LAB CRE(LOINC) 0.50-1.20 mg/dL Creatinine Lvl (s) 0.66 LAB BC(LOINC) 10.0-22.0 ratio High BUN/Creatinine 22.7 Ratio LAB CA(LOINC) 8.4-10.1 mg/dL Low Calcium Lvl 7.9 LAB PROT(LOINC 6.0-8.5 G/dL ) Total Protein 6.3 LAB ALB(LOINC) 3.2-4.8 G/dL Albumin Level 4.2 LAB GLB(LOINC) 1.5-3.8 G/dL Globulin 2.1 LAB AG(LOINC) 0.9-1.6 ratio A/G Ratio High 2.0 LAB BILT(LOINC 0.2-1.2 mg/dL ) Bili Total 0.6 LAB AP(LOINC) 38-126 U/L Alk Phos 72 LAB AST(LOINC) 8-34 U/L AST/SGOT High 49 LAB ALT(LOINC) 10-49 U/L ALT/SGPT 33 Performed By: #### CBC, GFR, CMP, ANEU, ADIFF #### [facility] [address] [place] [address] .GFR Collected: 07/28/2018 Status: F Source: [facility] 3:49 AM [facility]POS[facility] TYPE CODE TESTS RESULT OUT OF REFERENCE UNITS RANGE LAB GFRAA(LOINC ml/min/1.73 ) sqm GFR >60 [place] Result Comment: GFR Population mean for , Non- Americans Ages 20-29 = 116 mL/min/1.73 sq.m. Ages 30-39 = 107 mL/min/1.73 sq.m. Ages 40-49 = 99 mL/min/1.73 sq.m. Ages 50-59 = 93 mL/min/1.73 sq.m. Ages 60-69 = 85 mL/min/1.73 sq.m. Ages 70+ = 75 mL/min/1.73 sq.m. Chronic Kidney Disease: Less than 60 mL/min/1.73 square meters End Stage Renal Disease: Less than 15 mL/min/1.73 square meters LAB GFRNO(LOINC) ml/min/1.73sqm GFR Non- >60 Result Comment: GFR Population mean for , Non- Americans Ages 20-29 = 116 mL/min/1.73 sq.m. Ages 30-39 = 107 mL/min/1.73 sq.m. Ages 40-49 = 99 mL/min/1.73 sq.m. Ages 50-59 = 93 mL/min/1.73 sq.m. Ages 60-69 = 85 mL/min/1.73 sq.m. Ages 70+ = 75 mL/min/1.73 sq.m. Chronic Kidney Disease: Less than 60 mL/min/1.73 square meters End Stage Renal Disease: Less than 15 mL/min/1.73 square meters Performed By: #### CBC, GFR, CMP, ANEU, ADIFF #### [place] [address] BG Collected: 07/27/2018 Status: F Source: [facility] 8:10 PM [facility] REPOSITORY TYPE CODE TESTS RESULT OUT OF REFERENCE UNITS RANGE LAB PH(LOINC) 7.380-7.460 pH 7.386 LAB PCO2(LOINC 32.0-46.0 mmHg ) pCO2 41.4 LAB PO2(LOINC) 74.0-108.0 mmHg Low pO2 67.8 LAB HCO3(LOINC 21.0-29.0 mmol/L ) HCO3 24.3 LAB TCO2(LOINC 22.0-30.0 mmol/L ) CO2 Totl 25.5 LAB BE(LOINC) mmol/L Base Excess -0.7 LAB O2SAT(LOIN 92.0-96.0 % C) O2 Sat 93.1 LAB BPRES(LOIN mmHg C) Barometric 734 Pressure Performed By: #### BG #### [place] [address] K Collected: 07/27/2018 Status: F Source: [facility] 8:10 [facility] REPOSITORY TYPE CODE TESTS RESULT OUT OF REFERENCE UNITS RANGE LAB K(LOINC) 3.5-5.0 mEq/L Potassium Level 3.9 Performed By: #### HH, K #### [place] [address] HH Collected: 07/27/2018 Status: F Source: [facility] 8:10 PM [facility] REPOSITORY TYPE CODE TESTS RESULT OUT OF RANGE REFERENCE UNITS LAB HGB(LOINC) 12.0-16.0 G/dL Low Hgb 10.0 LAB HCT(LOINC) 34.0-46.0 % Low Hct 29.0 Performed By: #### HH, K #### [place] [address] BG Collected: 07/27/2018 Status: F Source: [facility] 7:01 PM [facility] REPOSITORY TYPE CODE TESTS RESULT OUT OF REFERENCE UNITS RANGE LAB PH(LOINC) 7.380-7.460 pH 7.396 LAB PCO2(LOINC 32.0-46.0 mmHg ) pCO2 39.4 LAB PO2(LOINC) 74.0-108.0 mmHg pO2 High 124.6 LAB HCO3(LOINC 21.0-29.0 mmol/L ) HCO3 23.6 LAB TCO2(LOINC 22.0-30.0 mmol/L ) CO2 Totl 24.8 LAB BE(LOINC) mmol/L Base Excess -1.1 LAB O2SAT(LOIN 92.0-96.0 % C) O2 Sat High 98.3 LAB BPRES(LOIN mmHg C) Barometric 734 Pressure Performed By: #### BG #### [place] [address] BG Collected: 07/27/2018 Status: F Source: [facility] 2:30 PM [facility] REPOSITORY TYPE CODE TESTS RESULT OUT OF REFERENCE UNITS RANGE LAB PH(LOINC) 7.380-7.460 pH 7.447 LAB PCO2(LOINC 32.0-46.0 mmHg ) pCO2 35.2 LAB PO2(LOINC) 74.0-108.0 mmHg pO2 High 109.2 LAB HCO3(LOINC 21.0-29.0 mmol/L ) HCO3 23.8 LAB TCO2(LOINC 22.0-30.0 mmol/L ) CO2 Totl 24.8 LAB BE(LOINC) mmol/L Base Excess 0.0 LAB O2SAT(LOIN 92.0-96.0 % C) O2 Sat High 97.9 LAB BPRES(LOIN mmHg C) Barometric 733 Pressure Performed By: #### BG #### [place] [address] K Collected: 07/27/2018 Status: F Source: [facility] 2:30 PM [facility] REPOSITORY TYPE CODE TESTS RESULT OUT OF REFERENCE UNITS RANGE LAB K(LOINC) 3.5-5.0 mEq/L Potassium Level 4.2 Performed By: #### K #### [place] [address] K Collected: 07/27/2018 Status: F Source: [facility] 1:43 PM [facility] REPOSITORY TYPE CODE TESTS RESULT OUT OF REFERENCE UNITS RANGE LAB K(LOINC) 3.5-5.0 mEq/L Potassium Level 3.5 Performed By: #### K #### [address] [address] BG Collected: 07/27/2018 Status: F Source: [facility] 1:39 PM [facility] REPOSITORY TYPE CODE TESTS RESULT OUT OF REFERENCE UNITS RANGE LAB PH(LOINC) 7.380-7.460 pH 7.455 LAB PCO2(LOINC 32.0-46.0 mmHg ) pCO2 35.5 LAB PO2(LOINC) 74.0-108.0 mmHg pO2 High 163.8 LAB HCO3(LOINC 21.0-29.0 mmol/L ) HCO3 24.4 LAB TCO2(LOINC 22.0-30.0 mmol/L ) CO2 Totl 25.5 LAB BE(LOINC) mmol/L Base Excess 0.6 LAB O2SAT(LOIN 92.0-96.0 % C) O2 Sat High 98.9 LAB BPRES(LOIN mmHg C) Barometric 734 Pressure Performed By: #### BG #### [place] [address] XR CHEST 1 VIEW Observed: 07/27/2018 Status: F Source: [facility] 12:58 PM [facility] REPOSITORY ORIGINAL XR THORACOABDOMEN 1 VIEW PORTABLE AP supine DATE AND TIME: 07/27/2018 1:15 PM CLINICAL STATEMENT: Check NG tube placement Enteric tube is seen coursing through the esophagus. Radiopaque tip is in the LEFT mid abdomen, presumably within the body of the stomach. Mediastinal drains, epicardial pacing wires, sternotomy wires a nd hardware, and a LEFT chest tube are present. Pigtail drainage catheter is seen in the LEFT upper quadrant of the abdomen. Interpreted By: Juan Daniel Velásquez MD Preliminary Report By: Juan Daniel Velásquez MD Electronically Signed By: Juan Daniel Velásquez MD Dictated Date: 07/27/2018 1:37:04 PM Prelim Date: 07/27/2018 1:37:04 PM Sign Date: 07/27/2018 1:37:53 PM XR CHEST 1 VIEW Observed: 07/27/2018 Status: F Source: [facility] 12:58 PM [facility] REPOSITORY ORIGINAL XR CHEST 1 VIEW PORTABLE AP UPRIGHT DATE AND TIME: 07/27/2018 1:25 PM CLINICAL STATEMENT: Check line placement COMPARISON: 07/23/2018 FINDINGS: Interval sternotomy has been performed. Sternotomy wires and mediastinal drains are present along with a left-sided chest tube. The cardiomediastinal contours are normal. There is no consolida tion, vascular congestion, pleural effusion, or pneumothorax. Calcified granuloma is again seen in the RIGHT midlung. Endotracheal tube is now seen with tip 3.5 cm above the leila. Enteric tube extends to the abdomen. LEFT subclavian central line tip is in the SVC. IMPRESSION: Satisfactory appearance of the chest post median sternotomy. Life support devices are in good position. Interpreted By: Juan Daniel Velásquez MD Preliminary Report By: Juan Daniel Velásquez MD Electronically Signed By: Juan Daniel Velásquez MD Dictated Date: 07/27/2018 1:35:17 PM Prelim Date: 07/27/2018 1:35:17 PM Sign Date: 07/27/2018 1:36:53 PM Collected: 07/27/2018 Status: F Source: [facility] 12:41 [facility] REPOSITORY TYPE CODE TESTS RESULT OUT OF RANGE REFERENCE UNITS LAB HGB(LOINC) 12.0-16.0 G/dL Low Hgb 9.6 LAB HCT(LOINC) 34.0-46.0 % Low Hct 28.0 Performed By: #### BMP, MG, GFR, CAION, PHOS, #### [place] [address] CAION Collected: 07/27/2018 Status: F Source: [facility] 12:41 [facility] REPOSITORY TYPE CODE TESTS RESULT OUT OF REFERENCE UNITS RANGE LAB CAION(LOINC 1.12-1.32 mmol/L ) Low Calcium 1.06 Ionized Performed By: #### BMP, MG, GFR, CAION, PHOS, #### [place] [address] BMP Collected: 07/27/2018 Status: F Source: [facility] 12:41 [facility] REPOSITORY TYPE CODE TESTS RESULT OUT OF REFERENCE UNITS RANGE LAB GLU(LOINC) 82-115 mg/dL Glucose High Level 187 LAB NA(LOINC) 136-145 mEq/L Sodium Level 145 LAB K(LOINC) 3.5-5.0 mEq/L Potassium Level 3.6 LAB CL(LOINC) 98-110 mEq/L Chloride 107 LAB CO2(LOINC) 22-32 mEq/L CO2 26 LAB EBAL(LOINC 4.0-15.0 mEq/L ) Electrolyte Balance 12.0 LAB BUN(LOINC) 8.0-22.0 mg/dL BUN 12.0 LAB CRE(LOINC) 0.50-1.20 mg/dL Creatinine Lvl (s) 0.64 LAB BC(LOINC) 10.0-22.0 ratio BUN/Creatinine 18.8 Ratio LAB CA(LOINC) 8.4-10.1 mg/dL Low Calcium Lvl 8.0 Performed By: #### BMP, MG, GFR, CAION, PHOS, #### [place] [address] MG Collected: 07/27/2018 Status: F Source: [facility] 12:41 [facility] REPOSITORY TYPE CODE TESTS RESULT OUT OF REFERENCE UNITS RANGE LAB MG(LOINC) 1.6-2.4 mg/dL High Magnesium Lvl 3.2 Performed By: #### STEPHANIE, MG, GFR, CAION, PHOS, #### [place] [address] PHOS Collected: 07/27/2018 Status: F Source: [facility] 12:41 [facility] REPOSITORY TYPE CODE TESTS RESULT OUT OF REFERENCE UNITS RANGE LAB PHOS(LOINC 2.5-4.5 mg/dL ) Phosphorus 3.3 Performed By: #### BMP, MG, GFR, CAION, PHOS, #### [place] [address] .GFR Collected: 07/27/2018 Status: F [facility] 12:41 [facility] REPOSITORY TYPE CODE TESTS RESULT OUT OF REFERENCE UNITS RANGE LAB GFRAA(LOINC ml/min/1.73 ) sqm GFR >60 [place] Result Comment: GFR Population mean for , Non- Americans Ages 20-29 = 116 mL/min/1.73 sq.m. Ages 30-39 = 107 mL/min/1.73 sq.m. Ages 40-49 = 99 mL/min/1.73 sq.m. Ages 50-59 = 93 mL/min/1.73 sq.m. Ages 60-69 = 85 mL/min/1.73 sq.m. Ages 70+ = 75 mL/min/1.73 sq.m. Chronic Kidney Disease: Less than 60 mL/min/1.73 square meters End Stage Renal Disease: Less than 15 mL/min/1.73 square meters LAB GFRNO(LOINC) ml/min/1.73sqm GFR Non- >60 Result Comment: GFR Population mean for , Non- Americans Ages 20-29 = 116 mL/min/1.73 sq.m. Ages 30-39 = 107 mL/min/1.73 sq.m. Ages 40-49 = 99 mL/min/1.73 sq.m. Ages 50-59 = 93 mL/min/1.73 sq.m. Ages 60-69 = 85 mL/min/1.73 sq.m. Ages 70+ = 75 mL/min/1.73 sq.m. Chronic Kidney Disease: Less than 60 mL/min/1.73 square meters End Stage Renal Disease: Less than 15 mL/min/1.73 square meters Performed By: #### BMP, MG, GFR, CAION, PHOS, #### [address] [address] BG Collected: 07/27/2018 Status: F Source: [facility] 12:41 PM [facility] REPOSITORY TYPE CODE TESTS RESULT OUT OF REFERENCE UNITS RANGE LAB PH(LOINC) 7.380-7.460 pH High 7.479 LAB PCO2(LOINC 32.0-46.0 mmHg ) pCO2 33.9 LAB PO2(LOINC) 74.0-108.0 mmHg pO2 High 211.2 LAB HCO3(LOINC 21.0-29.0 mmol/L ) HCO3 24.6 LAB TCO2(LOINC 22.0-30.0 mmol/L ) CO2 Totl 25.7 LAB BE(LOINC) mmol/L Base Excess 1.7 LAB O2SAT(LOIN 92.0-96.0 % C) O2 Sat High 99.5 LAB BPRES(LOIN mmHg C) Barometric 734 Pressure Performed By: #### BG #### [address] [address] BGRP Collected: 07/27/2018 Status: F Source: [facility] 12:05 PM [facility] REPOSITORY TYPE CODE TESTS RESULT OUT OF REFERENCE UNITS RANGE LAB PHRP(LOINC 7.380-7.460 ) pH (poct) - High POC 7.484 LAB PCORP(LOIN 32.0-46.0 mmHg C) PCO2 - POC 32.6 LAB PO2RP(LOIN 74.0-108.0 mmHg C) PO2 - POC High 244.7 LAB HCORP(LOIN 21.0-29.0 mmol/L C) Bicarbonate - POC 24.0 LAB TCORP(LOIN 22.0-30.0 mmol/L C) Total CO2 - POC 25.0 LAB BERP(LOINC mmol/L ) Base Excess - POC 0.9 LAB O2RP(LOINC 92.0-96.0 % ) O2 High Saturation - POC 98.9 Performed By: #### NARP, HCTRP, HGBRP, CLRP, BGRP, GLURP, CARP, KRP #### [place] [address] CLRP Collected: 07/27/2018 Status: F Source: [facility] 12:05 [facility] REPOSITORY TYPE CODE TESTS RESULT OUT OF REFERENCE UNITS RANGE LAB CLRP(LOINC) 98-110 mEq/L Chloride - POC 104 Performed By: #### NARP, HCTRP, HGBRP, CLRP, BGRP, GLURP, CARP, KRP #### [place] [address] HGBRP Collected: 07/27/2018 Status: F Source: [facility] 12:05 [facility] REPOSITORY TYPE CODE TESTS RESULT OUT OF REFERENCE UNITS RANGE LAB HGBRP(LOIN 12.0-16.0 G/dL C) Low Hemoglobin - POC 10.0 Performed By: #### NARP, HCTRP, HGBRP, CLRP, BGRP, GLURP, CARP, KRP #### [place] [address] GLURP Collected: 07/27/2018 Status: F Source: [facility] 12:05 [facility] REPOSITORY TYPE CODE TESTS RESULT OUT OF REFERENCE UNITS RANGE LAB GLURP(LOINC 82-115 mg/dL ) High Glucose - POC 220 Performed By: #### NARP, HCTRP, HGBRP, CLRP, BGRP, GLURP, CARP, KRP #### [place] [address] KRP Collected: 07/27/2018 Status: F Source: [facility] 12:05 PM [facility] REPOSITORY TYPE CODE TESTS RESULT OUT OF REFERENCE UNITS RANGE LAB KRP(LOINC) 3.5-5.0 mEq/L Potassium - POC 4.1 Performed By: #### NARP, HCTRP, HGBRP, CLRP, BGRP, GLURP, CARP, KRP #### [place] [address] HCTRP Collected: 07/27/2018 Status: F Source: [facility] 12:05 PM [facility] REPOSITORY TYPE CODE TESTS RESULT OUT OF REFERENCE UNITS RANGE LAB HCTRP(LOIN 37.0-47.0 % C) Low Hematocrit - POC 29.0 Performed By: #### NARP, HCTRP, HGBRP, CLRP, BGRP, GLURP, CARP, KRP #### [place] [address] NARP Collected: 07/27/2018 Status: F Source: [facility] 12:05 PM [facility] REPOSITORY TYPE CODE TESTS RESULT OUT OF REFERENCE UNITS RANGE LAB NARP(LOINC) 136-145 mEq/L Sodium - POC 139 Performed By: #### NARP, HCTRP, HGBRP, CLRP, BGRP, GLURP, CARP, KRP #### [place] [address] CARP Collected: 07/27/2018 Status: F Source: [facility] 12:05 PM [facility] REPOSITORY TYPE CODE TESTS RESULT OUT OF REFERENCE UNITS RANGE LAB CARP(LOINC) 1.12-1.32 mmol/L Ionized 1.16 Calcium - POC Performed By: #### NARP, HCTRP, HGBRP, CLRP, BGRP, GLURP, CARP, KRP #### [place] [address] BGRP Collected: 07/27/2018 Status: F Source: [facility] 11:40 AM [facility] REPOSITORY TYPE CODE TESTS RESULT OUT OF REFERENCE UNITS RANGE LAB PHRP(LOINC 7.380-7.460 ) pH (poct) - High POC 7.492 LAB PCORP(LOIN 32.0-46.0 mmHg C) PCO2 - POC 32.4 LAB PO2RP(LOIN 74.0-108.0 mmHg C) PO2 - POC High 301.8 LAB HCORP(LOIN 21.0-29.0 mmol/L C) Bicarbonate - POC 24.2 LAB TCORP(LOIN 22.0-30.0 mmol/L C) Total CO2 - POC 25.2 LAB BERP(LOINC mmol/L ) Base Excess - POC 1.1 LAB O2RP(LOINC 92.0-96.0 % ) O2 High Saturation - POC 98.9 Performed By: #### GLURP, BGRP, HGBRP, NARP, CARP, HCTRP, CLRP, KRP #### [place] [address] CLRP Collected: 07/27/2018 Status: F Source: [facility] 11:40 AM [facility] REPOSITORY TYPE CODE TESTS RESULT OUT OF REFERENCE UNITS RANGE LAB CLRP(LOINC) 98-110 mEq/L Chloride - POC 103 Performed By: #### GLURP, BGRP, HGBRP, NARP, CARP, HCTRP, CLRP, KRP #### [place] [address] HGBRP Collected: 07/27/2018 Status: F Source: [facility] 11:40 AM [facility] REPOSITORY TYPE CODE TESTS RESULT OUT OF REFERENCE UNITS RANGE LAB HGBRP(LOIN 12.0-16.0 G/dL C) Low Hemoglobin - POC 8.6 Performed By: #### GLURP, BGRP, HGBRP, NARP, CARP, HCTRP, CLRP, KRP #### [place] [address] GLURP Collected: 07/27/2018 Status: F Source: [facility] 11:40 AM [facility] REPOSITORY TYPE CODE TESTS RESULT OUT OF REFERENCE UNITS RANGE LAB GLURP(LOINC 82-115 mg/dL ) High Glucose - POC 201 Performed By: #### GLURP, BGRP, HGBRP, NARP, CARP, HCTRP, CLRP, KRP #### [place] [address] KRP Collected: 07/27/2018 Status: F Source: [facility] 11:40 AM [facility] REPOSITORY TYPE CODE TESTS RESULT OUT OF REFERENCE UNITS RANGE LAB KRP(LOINC) 3.5-5.0 mEq/L Potassium - POC 4.1 Performed By: #### GLURP, BGRP, HGBRP, NARP, CARP, HCTRP, CLRP, KRP #### [place] [address] HCTRP Collected: 07/27/2018 Status: F Source: [facility] 11:40 AM [facility] REPOSITORY TYPE CODE TESTS RESULT OUT OF REFERENCE UNITS RANGE LAB HCTRP(LOIN 37.0-47.0 % C) Low Hematocrit - POC 25.0 Performed By: #### GLURP, BGRP, HGBRP, NARP, CARP, HCTRP, CLRP, KRP #### [place] [address] NARP Collected: 07/27/2018 Status: F Source: [facility] 11:40 AM [facility] REPOSITORY TYPE CODE TESTS RESULT OUT OF REFERENCE UNITS RANGE LAB NARP(LOINC) 136-145 mEq/L Sodium - POC 138 Performed By: #### GLURP, BGRP, HGBRP, NARP, CARP, HCTRP, CLRP, KRP #### [place] [address] CARP Collected: 07/27/2018 Status: F Source: [facility] 11:40 AM [facility] REPOSITORY TYPE CODE TESTS RESULT OUT OF REFERENCE UNITS RANGE LAB CARP(LOINC) 1.12-1.32 mmol/L Ionized 1.23 Calcium - POC Performed By: #### GLURP, BGRP, HGBRP, NARP, CARP, HCTRP, CLRP, KRP #### [place] [address] CLRP Collected: 07/27/2018 Status: F Source: [facility] 11:10 AM [facility] REPOSITORY TYPE CODE TESTS RESULT OUT OF REFERENCE UNITS RANGE LAB CLRP(LOINC) 98-110 mEq/L Chloride - POC 99 Performed By: #### KRP, CLRP, CARP, BGRP, NARP, HCTRP, GLURP, HGBRP #### [place] [address] HGBRP Collected: 07/27/2018 Status: F Source: [facility] 11:10 AM [facility] REPOSITORY TYPE CODE TESTS RESULT OUT OF REFERENCE UNITS RANGE LAB HGBRP(LOIN 12.0-16.0 G/dL C) Low Hemoglobin - POC 8.3 Performed By: #### KRP, CLRP, CARP, BGRP, NARP, HCTRP, GLURP, HGBRP #### [place] [address] GLURP Collected: 07/27/2018 Status: F Source: [facility] 11:10 AM [facility] REPOSITORY TYPE CODE TESTS RESULT OUT OF REFERENCE UNITS RANGE LAB GLURP(LOINC 82-115 mg/dL ) High Glucose - POC 202 Performed By: #### KRP, CLRP, CARP, BGRP, NARP, HCTRP, GLURP, HGBRP #### [place] [address] KRP Collected: 07/27/2018 Status: F Source: [facility] 11:10 AM [facility] REPOSITORY TYPE CODE TESTS RESULT OUT OF REFERENCE UNITS RANGE LAB KRP(LOINC) 3.5-5.0 mEq/L High Potassium - POC 5.6 Performed By: #### KRP, CLRP, CARP, BGRP, NARP, HCTRP, GLURP, HGBRP #### [place] [address] HCTRP Collected: 07/27/2018 Status: F Source: [facility] 11:10 AM [facility] REPOSITORY TYPE CODE TESTS RESULT OUT OF REFERENCE UNITS RANGE LAB HCTRP(LOIN 37.0-47.0 % C) Low Hematocrit - POC 24.0 Performed By: #### KRP, CLRP, CARP, BGRP, NARP, HCTRP, GLURP, HGBRP #### [place] [address] NARP Collected: 07/27/2018 Status: F Source: [facility] 11:10 AM [facility] REPOSITORY TYPE CODE TESTS RESULT OUT OF REFERENCE UNITS RANGE LAB NARP(LOINC) 136-145 mEq/L Sodium - POC 137 Performed By: #### KRP, CLRP, CARP, BGRP, NARP, HCTRP, GLURP, HGBRP #### [place] [address] CARP Collected: 07/27/2018 Status: F Source: [facility] 11:10 AM [facility] REPOSITORY TYPE CODE TESTS RESULT OUT OF REFERENCE UNITS RANGE LAB CARP(LOINC) 1.12-1.32 mmol/L Low Ionized 0.99 Calcium - POC Performed By: #### KRP, CLRP, CARP, BGRP, NARP, HCTRP, GLURP, HGBRP #### [address] [address] BGRP Collected: 07/27/2018 Status: F Source: [facility] 11:10 AM [facility] REPOSITORY TYPE CODE TESTS RESULT OUT OF REFERENCE UNITS RANGE LAB PHRP(LOINC 7.380-7.460 ) pH (poct) - High POC 7.524 LAB PCORP(LOIN 32.0-46.0 mmHg C) PCO2 - POC 34.3 LAB PO2RP(LOIN 74.0-108.0 mmHg C) PO2 - POC High 371.2 LAB HCORP(LOIN 21.0-29.0 mmol/L C) Bicarbonate - POC 27.6 LAB TCORP(LOIN 22.0-30.0 mmol/L C) Total CO2 - POC 28.7 LAB BERP(LOINC mmol/L ) Base Excess - POC 4.6 LAB O2RP(LOINC 92.0-96.0 % ) O2 High Saturation - POC 99.1 Performed By: #### KRP, CLRP, CARP, BGRP, NARP, HCTRP, GLURP, HGBRP #### [address] [address] 12 LEAD ELECTROCARDIOGRAM Observed: 07/27/2018 Status: F Source: [facility] 10:55 AM [facility] Cardiovascular Services [address] [place] [address] 12 Lead EKG 07/23/18 0656 MR#: [id number] Acct: [id number] Name: LAURA MATTHEWS Rep #: [id number] : 1955 62 From: Tal Leone MD Attending Dr: Som Venegas DO Status: DIS IN Ordering Dr: Atul Rivas MD Date: 07/23/18 Location: U Sex: F C Admitted: 07/23/18 Test Reason : CP Blood Pressure : / mmHG Vent. Rate : 072 BPM Atrial Rate : 072 BPM P-R Int : 134 ms QRS Dur : 080 ms QT Int : 414 ms P-R-T Axes : 044 -08 081 degrees QTc Int : 453 ms Normal sinus rhythm Nonspecific ST and T wave abnormality Abnormal ECG When compared with ECG of 23-JUL-2018 06:04, MANUAL COMPARISON REQUIRED, DATA IS UNCONFIRMED Confirmed by SULEMA EVANS, TAL ([id number]), editor in chief newspaper MINESH AVILA ([id number]) on 07/27/2018 10:54:50 AM Referred By: SANDEE Confirmed By:TAL LEONE MD 07/27/18 1054 Date Tal Leone MD CC: Atul Rivas MD; Som Venegas DO; Emmett Lopez MD Signed BGRP Collected: 07/27/2018 Status: F Source: [facility] 10:50 AM [facility] REPOSITORY TYPE CODE TESTS RESULT OUT OF REFERENCE UNITS RANGE LAB PHRP(LOINC 7.380-7.460 ) pH (poct) - POC 7.446 LAB PCORP(LOIN 32.0-46.0 mmHg C) PCO2 - POC 35.1 LAB PO2RP(LOIN 74.0-108.0 mmHg C) PO2 - POC High 394.0 LAB HCORP(LOIN 21.0-29.0 mmol/L C) Bicarbonate - POC 23.6 LAB TCORP(LOIN 22.0-30.0 mmol/L C) Total CO2 - POC 24.7 LAB BERP(LOINC mmol/L ) Base Excess - POC -0.2 LAB O2RP(LOINC 92.0-96.0 % ) O2 High Saturation - POC 99.1 Performed By: #### GLURP, HGBRP, CARP, KRP, CLRP, NARP, HCTRP, BGRP #### [address] [address] CLRP Collected: 07/27/2018 Status: F Source: [facility] 10:50 AM [facility] REPOSITORY TYPE CODE TESTS RESULT OUT OF REFERENCE UNITS RANGE LAB CLRP(LOINC) 98-110 mEq/L Chloride - POC 103 Performed By: #### GLURP, HGBRP, CARP, KRP, CLRP, NARP, HCTRP, BGRP #### [place] [address] HGBRP Collected: 07/27/2018 Status: F Source: [facility] 10:50 AM [facility] REPOSITORY TYPE CODE TESTS RESULT OUT OF REFERENCE UNITS RANGE LAB HGBRP(LOIN 12.0-16.0 G/dL C) Low Hemoglobin - POC 8.9 Performed By: #### GLURP, HGBRP, CARP, KRP, CLRP, NARP, HCTRP, BGRP #### [place] [address] GLURP Collected: 07/27/2018 Status: F Source: [facility] 10:50 AM [facility] REPOSITORY TYPE CODE TESTS RESULT OUT OF REFERENCE UNITS RANGE LAB GLURP(LOINC 82-115 mg/dL ) High Glucose - POC 203 Performed By: #### GLURP, HGBRP, CARP, KRP, CLRP, NARP, HCTRP, BGRP #### [place] [address] KRP Collected: 07/27/2018 Status: F Source: [facility] 10:50 AM [facility] REPOSITORY TYPE CODE TESTS RESULT OUT OF REFERENCE UNITS RANGE LAB KRP(LOINC) 3.5-5.0 mEq/L High Potassium - POC 5.4 Performed By: #### GLURP, HGBRP, CARP, KRP, CLRP, NARP, HCTRP, BGRP #### [place] [address] HCTRP Collected: 07/27/2018 Status: F Source: [facility] 10:50 AM [facility] REPOSITORY TYPE CODE TESTS RESULT OUT OF REFERENCE UNITS RANGE LAB HCTRP(LOIN 37.0-47.0 % C) Low Hematocrit - POC 26.0 Performed By: #### GLURP, HGBRP, CARP, KRP, CLRP, NARP, HCTRP, BGRP #### [place] [address] NARP Collected: 07/27/2018 Status: F Source: [facility] 10:50 AM [facility] REPOSITORY TYPE CODE TESTS RESULT OUT OF REFERENCE UNITS RANGE LAB NARP(LOINC) 136-145 mEq/L Low Sodium - POC 134 Performed By: #### GLURP, HGBRP, CARP, KRP, CLRP, NARP, HCTRP, BGRP #### [place] [address] CARP Collected: 07/27/2018 Status: F Source: [facility] 10:50 AM [facility] REPOSITORY TYPE CODE TESTS RESULT OUT OF REFERENCE UNITS RANGE LAB CARP(LOINC) 1.12-1.32 mmol/L Low Ionized 1.03 Calcium - POC Performed By: #### GLURP, HGBRP, CARP, KRP, CLRP, NARP, HCTRP, BGRP #### [place] [address] BGRP Collected: 07/27/2018 Status: F Source: [facility] 10:26 AM [facility] REPOSITORY TYPE CODE TESTS RESULT OUT OF REFERENCE UNITS RANGE LAB PHRP(LOINC 7.380-7.460 ) pH (poct) - High POC 7.462 LAB PCORP(LOIN 32.0-46.0 mmHg C) PCO2 - POC 32.4 LAB PO2RP(LOIN 74.0-108.0 mmHg C) PO2 - POC High 405.6 LAB HCORP(LOIN 21.0-29.0 mmol/L C) Bicarbonate - POC 22.6 LAB TCORP(LOIN 22.0-30.0 mmol/L C) Total CO2 - POC 23.6 LAB BERP(LOINC mmol/L ) Base Excess - POC -0.8 LAB O2RP(LOINC 92.0-96.0 % ) O2 High Saturation - POC 99.1 Performed By: #### KRP, HGBRP, HCTRP, CLRP, BGRP, CARP, NARP, GLURP #### [place] [address] CLRP Collected: 07/27/2018 Status: F Source: [facility] 10:26 AM [facility] REPOSITORY TYPE CODE TESTS RESULT OUT OF REFERENCE UNITS RANGE LAB CLRP(LOINC) 98-110 mEq/L Chloride - POC 102 Performed By: #### KRP, HGBRP, HCTRP, CLRP, BGRP, CARP, NARP, GLURP #### [place] [address] HGBRP Collected: 07/27/2018 Status: F Source: [facility] 10:26 AM [facility] REPOSITORY TYPE CODE TESTS RESULT OUT OF REFERENCE UNITS RANGE LAB HGBRP(LOIN 12.0-16.0 G/dL C) Low Hemoglobin - POC 9.0 Performed By: #### KRP, HGBRP, HCTRP, CLRP, BGRP, CARP, NARP, GLURP #### [place] [address] GLURP Collected: 07/27/2018 Status: F Source: [facility] 10:26 AM [facility] REPOSITORY TYPE CODE TESTS RESULT OUT OF REFERENCE UNITS RANGE LAB GLURP(LOINC 82-115 mg/dL ) High Glucose - POC 173 Performed By: #### KRP, HGBRP, HCTRP, CLRP, BGRP, CARP, NARP, GLURP #### [place] [address] KRP Collected: 07/27/2018 Status: F Source: [facility] 10:26 AM [facility] REPOSITORY TYPE CODE TESTS RESULT OUT OF REFERENCE UNITS RANGE LAB KRP(LOINC) 3.5-5.0 mEq/L Potassium - POC 4.9 Performed By: #### KRP, HGBRP, HCTRP, CLRP, BGRP, CARP, NARP, GLURP #### [place] [address] HCTRP Collected: 07/27/2018 Status: F Source: [facility] 10:26 AM [facility] REPOSITORY TYPE CODE TESTS RESULT OUT OF REFERENCE UNITS RANGE LAB HCTRP(LOIN 37.0-47.0 % C) Low Hematocrit - POC 26.0 Performed By: #### KRP, HGBRP, HCTRP, CLRP, BGRP, CARP, NARP, GLURP #### [place] [address] NARP Collected: 07/27/2018 Status: F Source: [facility] 10:26 AM [facility] REPOSITORY TYPE CODE TESTS RESULT OUT OF REFERENCE UNITS RANGE LAB NARP(LOINC) 136-145 mEq/L Low Sodium - POC 133 Performed By: #### KRP, HGBRP, HCTRP, CLRP, BGRP, CARP, NARP, GLURP #### [place] [address] CARP Collected: 07/27/2018 Status: F Source: [facility] 10:26 AM [facility] REPOSITORY TYPE CODE TESTS RESULT OUT OF REFERENCE UNITS RANGE LAB CARP(LOINC) 1.12-1.32 mmol/L Low Ionized 1.02 Calcium - POC Performed By: #### KRP, HGBRP, HCTRP, CLRP, BGRP, CARP, NARP, GLURP #### [place] [address] BGRP Collected: 07/27/2018 Status: F Source: [facility] 9:42 AM [facility] REPOSITORY TYPE CODE TESTS RESULT OUT OF REFERENCE UNITS RANGE LAB PHRP(LOINC 7.380-7.460 ) pH (poct) - High POC 7.470 LAB PCORP(LOIN 32.0-46.0 mmHg C) Low PCO2 - POC 28.3 LAB PO2RP(LOIN 74.0-108.0 mmHg C) PO2 - POC High 469.4 LAB HCORP(LOIN 21.0-29.0 mmol/L C) Low Bicarbonate - POC 20.1 LAB TCORP(LOIN 22.0-30.0 mmol/L C) Low Total CO2 - POC 21.0 LAB BERP(LOINC mmol/L ) Base Excess - POC -2.4 LAB O2RP(LOINC 92.0-96.0 % ) O2 High Saturation - POC 99.4 Performed By: #### CLRP, CARP, HGBRP, HCTRP, KRP, BGRP, GLURP, NARP #### [place] [address] CLRP Collected: 07/27/2018 Status: F Source: [facility] 9:42 AM [facility] REPOSITORY TYPE CODE TESTS RESULT OUT OF REFERENCE UNITS RANGE LAB CLRP(LOINC) 98-110 mEq/L Chloride - POC 104 Performed By: #### CLRP, CARP, HGBRP, HCTRP, KRP, BGRP, GLURP, NARP #### [place] [address] HGBRP Collected: 07/27/2018 Status: F Source: [facility] 9:42 AM [facility] REPOSITORY TYPE CODE TESTS RESULT OUT OF REFERENCE UNITS RANGE LAB HGBRP(LOIN 12.0-16.0 G/dL C) Hemoglobin - POC 12.3 Performed By: #### CLRP, CARP, HGBRP, HCTRP, KRP, BGRP, GLURP, NARP #### [place] [address] GLURP Collected: 07/27/2018 Status: F Source: [facility] 9:42 AM [facility] REPOSITORY TYPE CODE TESTS RESULT OUT OF REFERENCE UNITS RANGE LAB GLURP(LOINC 82-115 mg/dL ) High Glucose - POC 155 Performed By: #### CLRP, CARP, HGBRP, HCTRP, KRP, BGRP, GLURP, NARP #### [place] [address] KRP Collected: 07/27/2018 Status: F Source: [facility] 9:42 AM [facility] REPOSITORY TYPE CODE TESTS RESULT OUT OF REFERENCE UNITS RANGE LAB KRP(LOINC) 3.5-5.0 mEq/L Potassium - POC 4.5 Performed By: #### CLRP, CARP, HGBRP, HCTRP, KRP, BGRP, GLURP, NARP #### [place] [address] HCTRP Collected: 07/27/2018 Status: F Source: [facility] 9:42 AM [facility] REPOSITORY TYPE CODE TESTS RESULT OUT OF REFERENCE UNITS RANGE LAB HCTRP(LOIN 37.0-47.0 % C) Low Hematocrit - POC 36.0 Performed By: #### CLRP, CARP, HGBRP, HCTRP, KRP, BGRP, GLURP, NARP #### [place] [address] NARP Collected: 07/27/2018 Status: F Source: [facility] 9:42 AM [facility] REPOSITORY TYPE CODE TESTS RESULT OUT OF REFERENCE UNITS RANGE LAB NARP(LOINC) 136-145 mEq/L Sodium - POC 137 Performed By: #### CLRP, CARP, HGBRP, HCTRP, KRP, BGRP, GLURP, NARP #### [place] [address] CARP Collected: 07/27/2018 Status: F Source: [facility] 9:42 AM [facility] REPOSITORY TYPE CODE TESTS RESULT OUT OF REFERENCE UNITS RANGE LAB CARP(LOINC) 1.12-1.32 mmol/L Ionized 1.12 Calcium - POC Performed By: #### CLRP, CARP, HGBRP, HCTRP, KRP, BGRP, GLURP, NARP #### [place] [address] FINAL SURGICAL Observed: 07/27/2018 Status: F Source: [facility] PATHOLOGY REPORT 9:20 AM [facility] REPOSITORY . Pathology Reports Accession: Collected Date/Time: Received Date/Time: Pathologist: [id number] 07/27/2018 09:20 EDT 07/28/2018 08:05 EDT MD SILVER FLETCHER Final Surgical Pathology Report DIAGNOSIS: MEDIASTINAL LYMPH NODE, BIOPSY: REACTIVE LYMPH NODE. CLINICAL INFORMATION: Procedure: CORONARY ARTERY BYPASS GRAFT USING LEFT INTERNAL MAMMARY ARTERY AND LEFT GREATER SAPHENOUS ENDOSCOPIC VEIN HARVEST, INSERTION OF TEMPORARY PACING WIRES, STERNAL PLATING Preoperative diagnosis: CORONARY ARTERY DISEASE Postoperative diagnosis: SAME SPECIMEN: A LYMPH NODE- MEDIASTINAL LYMPH NODE GROSS DESCRIPTION: Received in formalin labeled mediastinal lymph node is a 0.7 cm mesa mottled lymph node with a moderate amount of attached fat. Bisected. TS -1 Dictated by Ermelinda GONZALEZ ([facility]) MICROSCOPIC DESCRIPTION: Slides reviewed. Electronically Signed by Pathology Report verified by [facility] Electronically signed by SILVER FLETCHER MD Sign out Date: 07/29/2018 12:27 Performing Lab: [address] Performed By: #### SPFR #### [place] [address] BGRP Collected: 07/27/2018 Status: F Source: [facility] 7:31 AM [facility] REPOSITORY TYPE CODE TESTS RESULT OUT OF REFERENCE UNITS RANGE LAB PHRP(LOINC 7.380-7.460 ) pH (poct) - POC 7.422 LAB PCORP(LOIN 32.0-46.0 mmHg C) PCO2 - POC 38.7 LAB PO2RP(LOIN 74.0-108.0 mmHg C) PO2 - POC High 544.7 LAB HCORP(LOIN 21.0-29.0 mmol/L C) Bicarbonate - POC 24.7 LAB TCORP(LOIN 22.0-30.0 mmol/L C) Total CO2 - POC 25.8 LAB BERP(LOINC mmol/L ) Base Excess - POC 0.3 LAB O2RP(LOINC 92.0-96.0 % ) O2 High Saturation - POC 99.3 Performed By: #### GLURP, NARP, BGRP, CARP, HCTRP, CLRP, KRP, HGBRP #### [place] [address] CLRP Collected: 07/27/2018 Status: F Source: [facility] 7:31 AM [facility] REPOSITORY TYPE CODE TESTS RESULT OUT OF REFERENCE UNITS RANGE LAB CLRP(LOINC) 98-110 mEq/L Chloride - POC 104 Performed By: #### GLURP, NARP, BGRP, CARP, HCTRP, CLRP, KRP, HGBRP #### [place] [address] HGBRP Collected: 07/27/2018 Status: F Source: [facility] 7:31 AM [facility] REPOSITORY TYPE CODE TESTS RESULT OUT OF REFERENCE UNITS RANGE LAB HGBRP(LOIN 12.0-16.0 G/dL C) Hemoglobin - POC 12.8 Performed By: #### GLURP, NARP, BGRP, CARP, HCTRP, CLRP, KRP, HGBRP #### [place] [address] GLURP Collected: 07/27/2018 Status: F Source: [facility] 7:31 AM [facility] REPOSITORY TYPE CODE TESTS RESULT OUT OF REFERENCE UNITS RANGE LAB GLURP(LOINC 82-115 mg/dL ) High Glucose - POC 144 Performed By: #### GLURP, NARP, BGRP, CARP, HCTRP, CLRP, KRP, HGBRP #### [place] [address] KRP Collected: 07/27/2018 Status: F Source: [facility] 7:31 AM [facility] REPOSITORY TYPE CODE TESTS RESULT OUT OF REFERENCE UNITS RANGE LAB KRP(LOINC) 3.5-5.0 mEq/L Potassium - POC 4.1 Performed By: #### GLURP, NARP, BGRP, CARP, HCTRP, CLRP, KRP, HGBRP #### [place] [address] HCTRP Collected: 07/27/2018 Status: F Source: [facility] 7:31 AM [facility] REPOSITORY TYPE CODE TESTS RESULT OUT OF REFERENCE UNITS RANGE LAB HCTRP(LOIN 37.0-47.0 % C) Hematocrit - POC 38.0 Performed By: #### GLURP, NARP, BGRP, CARP, HCTRP, CLRP, KRP, HGBRP #### [place] [address] NARP Collected: 07/27/2018 Status: F Source: [facility] 7:31 AM [facility] REPOSITORY TYPE CODE TESTS RESULT OUT OF REFERENCE UNITS RANGE LAB NARP(LOINC) 136-145 mEq/L Sodium - POC 138 Performed By: #### GLURP, NARP, BGRP, CARP, HCTRP, CLRP, KRP, HGBRP #### [place] [address] CARP Collected: 07/27/2018 Status: F Source: [facility] 7:31 AM [facility] REPOSITORY TYPE CODE TESTS RESULT OUT OF REFERENCE UNITS RANGE LAB CARP(LOINC) 1.12-1.32 mmol/L Ionized 1.15 Calcium - POC Performed By: #### GLURP, NARP, BGRP, CARP, HCTRP, CLRP, KRP, HGBRP #### [place] [address] PLATELET (PRODUCT) Collected: 07/27/2018 Status: F Source: [facility] 6:21 AM [facility] REPOSIT[facility] Order Comment: ON HOLD FOR CVOR TYPE CODE TESTS RESULT OUT OF REFERENCE UNITS RANGE LAB PPR(LOINC) Platelet Platelet Ready Product Ready for Pickup Performed By: #### PLTP #### [place] [address] TABO Collected: 07/26/2018 Status: F Source: [facility] 4:41 PM [facility] REPOSITORY TYPE CODE TESTS RESULT OUT OF RANGE REFERENCE UNITS LAB ABORH(LOINC ) Unknown ABO/Rh A NEG Interp Performed By: #### ABORH, ANTIS #### [place] [address] TABS Collected: 07/26/2018 Status: F Source: [facility] 4:41 PM [facility] REPOSITORY TYPE CODE TESTS RESULT OUT OF REFERENCE UNITS RANGE LAB ANST(LOINC ) Antibody Negative ABSC Screen Tango Performed By: #### ABORH, ANTIS #### [place] [address] RBC (PRODUCT) Collected: 07/26/2018 Status: F Source: [facility] 1:16 PM [facility] REPOSITORY TYPE CODE TESTS RESULT OUT OF REFERENCE UNITS RANGE LAB RBCPR(LOINC ) RBC Product RBC Ready Ready for Pickup Performed By: #### RBCP #### [place] [address] APTT Collected: 07/26/2018 Status: F Source: [facility] 6:52 AM [facility] REPOSITORY TYPE CODE TESTS RESULT OUT OF REFERENCE UNITS RANGE LAB PDOSE(LOIN C) Heparin dose Heparin IV (APTT) LAB APTT0(LOIN 25.0-35.0 seconds C) High APTT 54.9 Result Comment: For Heparin anticoagulation therapy, the recommended therapeutic range is: 54-77 seconds (APTT Correlation with Anti-Xa therapeutic range of 0.3-0.7 units/ml). PLEASE REFERENCE THE PHARMACY PROTOCOL FOR DOSING. Performed By: #### APTT #### [place] [id number] BMP Collected: 07/26/2018 Status: F Source: [facility] 4:35 AM [facility] REPOSITORY TYPE CODE TESTS RESULT OUT OF REFERENCE UNITS RANGE LAB GLU(LOINC) 82-115 mg/dL Glucose High Level 144 LAB NA(LOINC) 136-145 mEq/L Sodium Level 142 LAB K(LOINC) 3.5-5.0 mEq/L Potassium Level 4.1 LAB CL(LOINC) 98-110 mEq/L Chloride 106 LAB CO2(LOINC) 22-32 mEq/L CO2 26 LAB EBAL(LOINC 4.0-15.0 mEq/L ) Electrolyte Balance 10.0 LAB BUN(LOINC) 8.0-22.0 mg/dL BUN 9.0 LAB CRE(LOINC) 0.50-1.20 mg/dL Creatinine Lvl (s) 0.58 LAB BC(LOINC) 10.0-22.0 ratio BUN/Creatinine 15.5 Ratio LAB CA(LOINC) 8.4-10.1 mg/dL Calcium Lvl 8.5 Performed By: #### BMP, CBC, GFR, ANEU, ADIFF, MG #### [address] [id number] MG Collected: 07/26/2018 Status: F Source: [facility] 4:35 AM [facility] REPOSITORY TYPE CODE TESTS RESULT OUT OF REFERENCE UNITS RANGE LAB MG(LOINC) 1.6-2.4 mg/dL Magnesium Lvl 2.0 Performed By: #### BMP, CBC, GFR, ANEU, ADIFF, MG #### [address] [id number] .GFR Collected: 07/26/2018 Status: F Source: [facility] 4:35 AM [facility] REPOSITORY TYPE CODE TESTS RESULT OUT OF REFERENCE UNITS RANGE LAB GFRAA(LOINC ml/min/1.73 ) sqm GFR >60 Gu[place]ese Result Comment: GFR Population mean for , Non- Americans Ages 20-29 = 116 mL/min/1.73 sq.m. Ages 30-39 = 107 mL/min/1.73 sq.m. Ages 40-49 = 99 mL/min/1.73 sq.m. Ages 50-59 = 93 mL/min/1.73 sq.m. Ages 60-69 = 85 mL/min/1.73 sq.m. Ages 70+ = 75 mL/min/1.73 sq.m. Chronic Kidney Disease: Less than 60 mL/min/1.73 square meters End Stage Renal Disease: Less than 15 mL/min/1.73 square meters LAB GFRNO(LOINC) ml/min/1.73sqm GFR Non- >60 Result Comment: GFR Population mean for , Non- Americans Ages 20-29 = 116 mL/min/1.73 sq.m. Ages 30-39 = 107 mL/min/1.73 sq.m. Ages 40-49 = 99 mL/min/1.73 sq.m. Ages 50-59 = 93 mL/min/1.73 sq.m. Ages 60-69 = 85 mL/min/1.73 sq.m. Ages 70+ = 75 mL/min/1.73 sq.m. Chronic Kidney Disease: Less than 60 mL/min/1.73 square meters End Stage Renal Disease: Less than 15 mL/min/1.73 square meters Performed By: #### BMP, CBC, GFR, ANEU, ADIFF, MG #### [address] [id number] CBC Collected: 07/26/2018 Status: F Source: [facility] 4:35 AM [facility] REPOSITORY TYPE CODE TESTS RESULT OUT OF REFERENCE UNITS RANGE LAB WBC(LOINC) 4.50-10.80 10 3/mcL WBC 6.80 LAB RBCCT(LOINC 4.10-5.30 10 6/mcL ) Low RBC 4.08 LAB HGB(LOINC) 12.0-16.0 G/dL Low Hgb 11.4 LAB HCT(LOINC) 34.0-46.0 % Low Hct 33.9 LAB MCV(LOINC) 80.0-99.0 fL MCV 83.1 LAB MCH(LOINC) 27.0-33.0 pg MCH 28.0 LAB MCHC(LOINC) 32.0-36.0 G/dL MCHC 33.7 LAB RDW(LOINC) 11.5-15.5 % RDW 13.5 LAB PLT(LOINC) 150-450 10 3/mcL Platelet 191 LAB MPV(LOINC) 6.6-10.5 fL MPV 9.4 Performed By: #### STEPHANIE, CBC, GFR, ANEU, ADIFF, MG #### [address] [id number] .AUTO DIFF Collected: 07/26/2018 Status: F Source: [employer] 4:35 AM [facility] REPOSITORY TYPE CODE TESTS RESULT OUT OF REFERENCE UNITS RANGE LAB ALEX(LOINC) 50.0-75.0 % Low Neutrophil % 46.9 LAB LYM(LOINC) 20.0-40.0 % High Lymphocyte % 41.0 LAB MON(LOINC) 2.0-13.0 % Monocyte % 8.0 LAB EO(LOINC) 0.0-6.0 % Eosinophil % 3.8 LAB BAS(LOINC) 0.0-2.5 % Basophil % 0.3 LAB ABLYM(LOIN 0.90-4.32 10 3/mcL C) Lymphocyte, 2.80 Absolute LAB VANESSA(LOINC 0.09-1.40 10 3/mcL ) Monocyte, 0.50 Absolute LAB AEOS(LOINC 0.00-0.65 10 3/mcL ) Eosinophil, 0.30 Absolute LAB ABAS(LOINC 0.00-0.27 10 3/mcL ) Basophil, 0.00 Absolute Performed By: #### BMP, CBC, GFR, ANEU, ADIFF, MG #### [place] [address] .NEUABS Collected: 07/26/2018 Status: F Source: [facility] 4:35 AM [facility] REPOSITORY TYPE CODE TESTS RESULT OUT OF REFERENCE UNITS RANGE LAB ANEU(LOINC) 2.25-8.10 10 3/mcL Neutrophil, 3.20 Absolute Performed By: #### BMP, CBC, GFR, ANEU, ADIFF, MG #### [place] [address] TEGPMH Collected: 07/26/2018 Status: F Source: [facility] 4:35 AM [facility] REPOSITORY TYPE CODE TESTS RESULT OUT OF REFERENCE UNITS RANGE LAB RTEGH(LOIN 5.0-10.0 minutes C) R TEG with Heparin 5.5 LAB KTEGH(LOIN 1.0-3.0 minutes C) K TEG with Heparin 1.3 LAB ATEGH(LOIN 53.0-72.0 degrees C) Angle TEG with Heparin 70.8 LAB MATEGH(BOBBY 50.0-70.0 mm NC) MA Max High Clot TEG with 72.4 Heparin LAB IY10DAH(LO 0.0-8.0 % INC) LY30 Lysis TEG with NT Heparin LAB INIADPH(LO % INC) Inhibition ADP 0.0 with Heparin LAB INIAAH(BOBBY % NC) Inhibition AA 29.6 with Heparin LAB MAACTH(BOBBY mm NC) MA Activated with 25.5 Heparin LAB MAADPH(BOBBY mm NC) MA (ADP) with Heparin 73.1 LAB MAAAH(LOIN mm C) MA (AA) with Heparin 58.5 Performed By: #### TEGPMH #### [place] [address] DISCHARGE SUMMARY Observed: 07/25/2018 Status: F Source: [facility] 7:15 PM [facility] Medical Records Department [address] [place] [address] Discharge Summary 07/25/181802 MR#: [id number] Acct: [id number] Name: LAURA MATTHEWS Rep #: [id number] : 1955 62 From: Som Venegas DO PCP: Emmett Lopez MD Status: DIS IN Y Location: [place] [address] ADDENDUM by Som Venegas DO on 07/25/18 at 1915 Code Visit Please note the following correction pertaining to the patient's care in the hospital: Patient did not go to the ICU after her cardiac catheterization and did not have a balloon pump inserted during her hospitalization, she was transferred to a tertiary hospital ([place]) for further care. 07/25/181914 <Electronically signed by Som Venegas DO> Date Som Venegas DO cc: Som Venegas DO; Emmett Lopez MD * Signed Discharge Date and Diagnosis Date of Admission: 07/23/18 Date of Discharge: 07/23/18 - Primary Discharge Diagnosis #1 non-STEMI #2 severe triple-vessel coronary artery disease involving the proximal left anterior descending artery, mid left anterior descending artery, mid circumflex artery, and mid and distal right coronary artery. #3 type 2 diabetes Hospital Course and Treatment Operations: None Procedures: Cardiac catheterization Summary of Care Provided: The patient is a 62 year old F seen in the emergency room at [facility] with a chief complaint of chest discomfort of 3 days duration. Patient had intermittent discomfort which was worse on exertion. Workup in the emergency room included an EKG which showed a sinus rhythm and nonspecific ST-T wave changes including subtle ST depression in the inferior lateral leads, CBC was unremarkable, chemistry was unremarkable. Troponin was elevated at 10.9. Chest x-ray was unremarkable for acute disease. Patient was started on Lovenox 80 mg subcu, patient received aspirin on presentation, she was admitted to PCU with a diagnosis of non-STEMI and cardiology to consult. Cardiology performed a cardiac catheterization later that morning and patient had severe triple-vessel disease, patient was briefly admitted to ICU with a balloon pump but arrangements were made for her to be transferred to a tertiary care facility for further treatment. Physical exam: On examination she appeared in good health and spirits. Vital signs as documented. Skin warm and dry and without overt rashes. Neck without JVD. Lungs clear. Heart exam notable for regular rhythm, normal sounds and absence of murmurs, rubs or gallops. Abdomen unremarkable and without evidence of organomegaly, masses, or abdominal aortic enlargement. Extremities nonedematous. Neuro: Cranial nerves II through XII are grossly intact, no focal motor deficits were noted, sensation is intact to light touch and pinprick. Psych: Patient was alert and oriented x3 and appropriate, she did not appear depressed or anxious On 07/23/18, patient was transferred in stable condition to [facility] in [facility] for further care. - Physical Exam Vital Signs Temp Pulse Resp BP Pulse Ox 98.8 F 79 16 108/70 97 07/23/18 07:22 07/23/18 11:37 07/23/18 11:00 07/23/18 11:37 07/23/18 11:00 Oxygen Flow Rate (L/min) 2 Oxygen Delivery Method Nasal Cannula Weight: 73 kg Body Mass Index (BMI) 28.5 Intake and Output for Last 24 Hours Intake Total 240 / 240 Balance 240 / 240 Home Medications: Medications to take at Discharge Dm Natural Med 1 cap PO BID 07/23/18 Primary Care Physician: Emmett Lopez MD [Primary Care Provider] - Disposition: Acute care Hospital Minutes spent on discharge:: 32 Patient Condition:: Stable Medical Necessity - Tobacco Use Smoking Status: Never smoker Meaningful Use Info Meaningful Use Diagnoses (Choose all that apply): AMI - AMI Aspirin given w/in 24hrs of arrival?: Yes ASA at discharge?: No Reason ASA not ordered:: Allergy - Patient was transferred to an acute care facility for further treatment Statins at discharge?: No Reason statins not ordered:: Allergy - Patient was transferred to an acute care facility for further treatment Esteban/ARB at discharge?: No Reason Esteban/ARB not ordered:: Allergy - Patient was transferred to an acute care facility for further treatment Beta Babs at discharge?: No Reason Beta Babs not ordered:: Allergy - Patient was discharged in acute care facility for further treatment Done w/ Acute IA measure.: Yes Code Visit OBSV E AND M: 48662 Observ/hosp same date L3 07/25/18 1846 <Electronically signed by Som Venegas DO> Date Som Venegas DO Cosigner Signature (if applicable): Date CC: Som Venegas DO; Emmett Lopez MD Signed CBC Collected: 07/25/2018 Status: F Source: [facility] 5:16 AM [facility] REPOSITORY TYPE CODE TESTS RESULT OUT OF REFERENCE UNITS RANGE LAB WBC(LOINC) 4.50-10.80 10 3/mcL WBC 8.00 LAB RBCCT(LOINC 4.10-5.30 10 6/mcL ) RBC 4.11 LAB HGB(LOINC) 12.0-16.0 G/dL Low Hgb 11.7 LAB HCT(LOINC) 34.0-46.0 % Hct 34.6 LAB MCV(LOINC) 80.0-99.0 fL MCV 84.1 LAB MCH(LOINC) 27.0-33.0 pg MCH 28.5 LAB MCHC(LOINC) 32.0-36.0 G/dL MCHC 33.9 LAB RDW(LOINC) 11.5-15.5 % RDW 13.4 LAB PLT(LOINC) 150-450 10 3/mcL Platelet 169 LAB MPV(LOINC) 6.6-10.5 fL MPV 9.5 Performed By: #### GFR, ANEU, BMP, CBC, ADIFF #### [place] [address] .AUTO DIFF Collected: 07/25/2018 Status: F Source: [facility] 5:16 AM [facility] REPOSITORY TYPE CODE TESTS RESULT OUT OF REFERENCE UNITS RANGE LAB ALEX(LOINC) 50.0-75.0 % Neutrophil % 50.6 LAB LYM(LOINC) 20.0-40.0 % Lymphocyte % 37.8 LAB MON(LOINC) 2.0-13.0 % Monocyte % 9.1 LAB EO(LOINC) 0.0-6.0 % Eosinophil % 2.4 LAB BAS(LOINC) 0.0-2.5 % Basophil % 0.1 LAB ABLYM(LOIN 0.90-4.32 10 3/mcL C) Lymphocyte, 3.00 Absolute LAB VANESSA(LOINC 0.09-1.40 10 3/mcL ) Monocyte, 0.70 Absolute LAB AEOS(LOINC 0.00-0.65 10 3/mcL ) Eosinophil, 0.20 Absolute LAB ABAS(LOINC 0.00-0.27 10 3/mcL ) Basophil, 0.00 Absolute Performed By: #### GFR, ANEU, BMP, CBC, ADIFF #### [place] [address] .NEUABS Collected: 07/25/2018 Status: F Source: [facility] 5:16 AM [facility] REPOSITORY TYPE CODE TESTS RESULT OUT OF REFERENCE UNITS RANGE LAB ANEU(LOINC) 2.25-8.10 10 3/mcL Neutrophil, 4.10 Absolute Performed By: #### GFR, ANEU, BMP, CBC, ADIFF #### [place] [address] BMP Collected: 07/25/2018 Status: F Source: [facility] 5:16 AM [facility] REPOSITORY TYPE CODE TESTS RESULT OUT OF REFERENCE UNITS RANGE LAB GLU(LOINC) 82-115 mg/dL Glucose High Level 133 LAB NA(LOINC) 136-145 mEq/L Sodium Level 142 LAB K(LOINC) 3.5-5.0 mEq/L Potassium Level 4.1 LAB CL(LOINC) 98-110 mEq/L Chloride 107 LAB CO2(LOINC) 22-32 mEq/L CO2 25 LAB EBAL(LOINC 4.0-15.0 mEq/L ) Electrolyte Balance 10.0 LAB BUN(LOINC) 8.0-22.0 mg/dL BUN 11.0 LAB CRE(LOINC) 0.50-1.20 mg/dL Creatinine Lvl (s) 0.66 LAB BC(LOINC) 10.0-22.0 ratio BUN/Creatinine 16.7 Ratio LAB CA(LOINC) 8.4-10.1 mg/dL Calcium Lvl 8.6 Performed By: #### GFR, ANEU, BMP, CBC, ADIFF #### [address] [address] .GFR Collected: 07/25/2018 Status: F Source: [facility] 5:16 AM [facility] REPOSITORY TYPE CODE TESTS RESULT OUT OF REFERENCE UNITS RANGE LAB GFRAA(LOINC ml/min/1.73 ) sqm GFR >60 Guyanese Result Comment: GFR Population mean for , Non- Americans Ages 20-29 = 116 mL/min/1.73 sq.m. Ages 30-39 = 107 mL/min/1.73 sq.m. Ages 40-49 = 99 mL/min/1.73 sq.m. Ages 50-59 = 93 mL/min/1.73 sq.m. Ages 60-69 = 85 mL/min/1.73 sq.m. Ages 70+ = 75 mL/min/1.73 sq.m. Chronic Kidney Disease: Less than 60 mL/min/1.73 square meters End Stage Renal Disease: Less than 15 mL/min/1.73 square meters LAB GFRNO(LOINC) ml/min/1.73sqm GFR Non- >60 Result Comment: GFR Population mean for , Non- Americans Ages 20-29 = 116 mL/min/1.73 sq.m. Ages 30-39 = 107 mL/min/1.73 sq.m. Ages 40-49 = 99 mL/min/1.73 sq.m. Ages 50-59 = 93 mL/min/1.73 sq.m. Ages 60-69 = 85 mL/min/1.73 sq.m. Ages 70+ = 75 mL/min/1.73 sq.m. Chronic Kidney Disease: Less than 60 mL/min/1.73 square meters End Stage Renal Disease: Less than 15 mL/min/1.73 square meters Performed By: #### GFR, ANEU, BMP, CBC, ADIFF #### [address] [address] APTT Collected: 07/25/2018 Status: F Source: [facility] 5:16 AM [facility] REPOSITORY TYPE CODE TESTS RESULT OUT OF REFERENCE UNITS RANGE LAB PDOSE(LOIN C) Heparin dose Heparin IV (APTT) LAB APTT0(LOIN 25.0-35.0 seconds C) High APTT 50.6 Result Comment: For Heparin anticoagulation therapy, the recommended therapeutic range is: 54-77 seconds (APTT Correlation with Anti-Xa therapeutic range of 0.3-0.7 units/ml). PLEASE REFERENCE THE PHARMACY PROTOCOL FOR DOSING. Performed By: #### APTT #### [address] [address] APTT Collected: 07/25/2018 Status: F Source: [facility] 1:50 AM [facility] REPOSITORY TYPE CODE TESTS RESULT OUT OF REFERENCE UNITS RANGE LAB PDOSE(LOIN C) Heparin dose Heparin IV (APTT) LAB APTT0(LOIN 25.0-35.0 seconds C) High APTT 55.4 Result Comment: For Heparin anticoagulation therapy, the recommended therapeutic range is: 54-77 seconds (APTT Correlation with Anti-Xa therapeutic range of 0.3-0.7 units/ml). PLEASE REFERENCE THE PHARMACY PROTOCOL FOR DOSING. Performed By: #### APTT #### [address] [address] APTT Collected: 07/24/2018 Status: F Source: [facility] 8:17 PM [facility] REPOSITORY TYPE CODE TESTS RESULT OUT OF REFERENCE UNITS RANGE LAB PDOSE(LOIN C) Heparin dose Heparin IV (APTT) LAB APTT0(LOIN 25.0-35.0 seconds C) High APTT 49.6 Result Comment: For Heparin anticoagulation therapy, the recommended therapeutic range is: 54-77 seconds (APTT Correlation with Anti-Xa therapeutic range of 0.3-0.7 units/ml). PLEASE REFERENCE THE PHARMACY PROTOCOL FOR DOSING. Performed By: #### APTT #### [address] [address] APTT Collected: 07/24/2018 Status: F Source: [facility] 11:23 AM [facility] REPOSITORY TYPE CODE TESTS RESULT OUT OF REFERENCE UNITS RANGE LAB PDOSE(LOIN C) Heparin dose Heparin IV (APTT) LAB APTT0(LOIN 25.0-35.0 seconds C) High APTT 43.1 Result Comment: For Heparin anticoagulation therapy, the recommended therapeutic range is: 54-77 seconds (APTT Correlation with Anti-Xa therapeutic range of 0.3-0.7 units/ml). PLEASE REFERENCE THE PHARMACY PROTOCOL FOR DOSING. Performed By: #### APTT #### [address] [address] UA Collected: 07/24/2018 Status: F Source: [facility] 9:20 AM [facility] REPOSITORY TYPE CODE TESTS RESULT OUT OF RANGE REFERENCE UNITS LAB SPCUA(BOBBY NC) UA Specimen Type Clean Catch LAB CLRUA(BOBBY NC) UA Color Yellow LAB APPUA(BOBBY Clear NC) UA Appear Unknown Cloudy LAB SGUA(LOIN 1.006-1.029 C) UA Spec Grav 1.010 LAB GLUA(LOIN Negative mg/dL C) UA Glucose Negative LAB BILUA(BOBBY Neg-Trace NC) UA Bili Negative LAB KETUA(BOBBY Neg-Trace mg/dL NC) UA Ketones Unknown 80 LAB BLDUA(BOBBY Neg-Trace NC) UA Blood Negative LAB PHUA(LOIN 5.0 - 8.0 C) UA pH 5.0 LAB PROUA(BOBBY Negative mg/dL NC) UA Protein Negative LAB UROUA(OBBBY 0.2-1.0 E.U./dL NC) UA Urobilinogen 0.2 LAB NITUA(BOBBY Negative NC) UA Nitrite Negative LAB LEUUA(BOBBY Negative NC) UA Leuk Est Unknown Moderate Performed By: #### UAMIC, UA #### [address] [address] UAMIC Collected: 07/24/2018 Status: F Source: [facility] 9:20 AM [facility] REPOSITORY TYPE CODE TESTS RESULT OUT OF RANGE REFERENCE UNITS LAB RBCUA(LOIN 0-2 /hpf C) UA RBC 0-2 LAB WBCUA(LOIN 0-5 /hpf C) Unknown UA WBC 25-50 LAB EPIUA(LOIN 0-20 /hpf C) UA Squam Epithelial 5-10 LAB MUCUA(LOIN /hpf C) UA Mucous 2+ LAB BACUA(LOIN Negative /hpf C) Unknown UA Bacteria 4+ Performed By: #### UAMIC, UA #### [address] [address] CONSULTATION Observed: 07/24/2018 Status: F Source: [place] 6:58 AM [facility] Medical Records Department [address] [place] [address] Consultation 07/23/18 0700 MR#: [id number] Acct: [id number] Name: LAURA MATTHEWS Rep #: [id number] : 1955 62 From: Tal Leone MD PCP: Emmett Lopez MD Status: DIS IN Y Location: [place] [address] Reason for Consult Date of Consultation: 07/23/18 Reason for Consultation: Chest discomfort History of Present Illness: The patient is a 62 year old F with no previous medical history who presented to the emergency room with a 4-5-day episode of chest discomfort. She describes it as a squeezing sensation like somebody grabbing her with some radiation to the left side. She was concerned about the above it seemed to occur with exertion and also with rest. She denied any dizziness or diaphoresis no near syncope or syncope. She really is on no medications. She presented to the emergency room had an EKG done and then had troponins done which were elevated. She was admitted to the hospitalist and cardiology was called for further evaluation and management. At this particular time she denies any chest pain or shortness of breath. [] Past Medical History Allergies/Adverse Reactions: Allergies No Known Allergies Allergy (Verified 07/23/18 05:16) Home Medications: Ambulatory Orders Medication Instructions Recorded Dm Natural Med 1 cap PO BID 07/23/18 Smoking Status: Never smoker Alcohol: None Drugs: None Review of Systems - Review of Systems General: Denies: Fever, Night Sweats, Fatigue Cardiovascular: Reports: Chest Discomfort at Rest, Chest Discomfort with Exertion, Chest Tightness, Chest Heaviness. Denies: Chest Discomfort, Shortness of Breath, Orthopnea, PND, Peripheral Edema, Palpitations, Lightheadedness, Dizziness, Near Syncope, Syncope Respiratory: Denies: Cough, Sputum Production, Hemoptysis Gastrointestinal: Denies: Hematemesis, Hematochezia, Melena Genitourinary: Denies: Dysuria, Hematuria Skin: Denies: Rash Subjectve: Pleasant lady in no apparent distress resting in bed Objective: Vital Signs Temp Pulse Resp BP Pulse Ox 97.9 F 79 16 120/81 H 98 07/23/18 05:12 07/23/18 06:09 07/23/18 06:09 07/23/18 06:09 07/23/18 06:09 Oxygen Flow Rate (L/min) 2 Oxygen Delivery Method Nasal Cannula Weight: 164 lb 0.383 oz Body Mass Index (BMI) 29.0 General: Awake, Alert, Oriented x 3 HEENT: PERRL, EOMI, Sclera Non Icteric Neck: Supple, Good ROM, No Lymph Node Enlargement Lungs: Clear to auscultation Cardiovascular: Regular Rhythm, Normal S1, Normal S2, No Murmurs, No Rubs, No Gallops Vascular: No Carotid Bruits, Normal Femoral Pulses, Normal Radial Pulses, Normal Dorsalis Pedal Pulse, Normal Posterior Tibial Pulses Abdomen: Bowel Sounds Present, Soft, Non Tender, No HSM, No Organomegaly Extremities: No Cyanosis, No Clubbing, No edema Neurological: No Focal Motor or Sensory Deficit 07/23/18 05:21: WBC 11.0, RBC 4.99, Hgb 14.1, Hct 41.6, MCV 83.4, MCH 28.3, MCHC 33.9, RDW 13.4, RDW Differential 40.3, Plt Count 215, MPV 10.9, Immature Gran % (Auto) 0.200, Neut % (Auto) 65.6, Lymph % (Auto) 23.3, Morrison % (Auto) 9.9, Eos % (Auto) 0.9, Baso % (Auto) 0.1, Absolute Neuts (auto) 7.2, Total Counted Not Reportable 07/23/18 05:21: Sodium 138, Potassium 3.9, Chloride 104, Carbon Dioxide 25.0, Anion Gap 9, BUN 7, Creatinine 0.72, Est GFR (MDRD) Af Amer 106, Est GFR (MDRD) Non-Af 88, BUN/Creatinine Ratio 9.7 L, Glucose 174 H, Calcium 9.0, Troponin I 10.900 H* Rhythm: EKG: ECHO: Stress Test: Cardiac Cath: PCI: CT Surgery: Holter monitor: EPS: PPM: CXR: Chest CT Scan: Assessment/Plan 1. Non-ST elevation myocardial infarction. * The patient presents with chest discomfort which is waxing and waning of 3-4 days duration. She now has a non-ST elevation myocardial infarction. * My recommendations would be-aspirin 81 mg * Brilinta 180 mg now * Toprol-XL 25 mg * Would recommend cardiac catheterization. The risk benefits and alternatives have been explained to her she understands and agrees to proceed. The above will be performed through the radial approach preferably. * 2. Diabetes mellitus * Will defer to the hospitalist regarding the above. * * Thank you for allowing me to participate in the care of your patient. Please don't hesitate to call if any issues arise 07/24/18 0658 <Electronically signed by Tal Leone MD> Date Tal Leone MD Cosigner Signature (if applicable): Date CC: Tal Leone MD; Emmett Lopez MD Signed CBC Collected: 07/24/2018 Status: F Source: [facility] TYPE CODE TESTS RESULT OUT OF REFERENCE UNITS RANGE LAB WBC(LOINC) 4.50-10.80 10 3/mcL WBC 9.30 LAB RBCCT(LOINC 4.10-5.30 10 6/mcL ) RBC 4.33 LAB HGB(LOINC) 12.0-16.0 G/dL Hgb 12.2 LAB HCT(LOINC) 34.0-46.0 % Hct 36.3 LAB MCV(LOINC) 80.0-99.0 fL MCV 84.0 LAB MCH(LOINC) 27.0-33.0 pg MCH 28.3 LAB MCHC(LOINC) 32.0-36.0 G/dL MCHC 33.6 LAB RDW(LOINC) 11.5-15.5 % RDW 13.9 LAB PLT(LOINC) 150-450 10 3/mcL Platelet 169 LAB MPV(LOINC) 6.6-10.5 fL MPV 9.1 Performed By: #### A1C, LIPID, ANEU, CBC, GFR, BMP, ADIFF #### [place] [address] .AUTO DIFF Collected: 07/24/2018 Status: F Source: [facility] 2:30 AM [facility] REPOSITORY TYPE CODE TESTS RESULT OUT OF REFERENCE UNITS RANGE LAB ALEX(LOINC) 50.0-75.0 % Neutrophil % 56.2 LAB LYM(LOINC) 20.0-40.0 % Lymphocyte % 32.5 LAB MON(LOINC) 2.0-13.0 % Monocyte % 9.3 LAB EO(LOINC) 0.0-6.0 % Eosinophil % 1.7 LAB BAS(LOINC) 0.0-2.5 % Basophil % 0.3 LAB ABLYM(LOIN 0.90-4.32 10 3/mcL C) Lymphocyte, 3.00 Absolute LAB VANESSA(LOINC 0.09-1.40 10 3/mcL ) Monocyte, 0.90 Absolute LAB AEOS(LOINC 0.00-0.65 10 3/mcL ) Eosinophil, 0.20 Absolute LAB ABAS(LOINC 0.00-0.27 10 3/mcL ) Basophil, 0.00 Absolute Performed By: #### A1C, LIPID, ANEU, CBC, GFR, BMP, ADIFF #### [place] [address] .NEUABS Collected: 07/24/2018 Status: F Source: [facility] 2:30 AM [facility] REPOSITORY TYPE CODE TESTS RESULT OUT OF REFERENCE UNITS RANGE LAB ANEU(LOINC) 2.25-8.10 10 3/mcL Neutrophil, 5.20 Absolute Performed By: #### A1C, LIPID, ANEU, CBC, GFR, BMP, ADIFF #### [place] [address] BMP Collected: 07/24/2018 Status: F Source: [facility] 2:30 AM [facility] REPOSITORY TYPE CODE TESTS RESULT OUT OF REFERENCE UNITS RANGE LAB GLU(LOINC) 82-115 mg/dL Glucose High Level 127 LAB NA(LOINC) 136-145 mEq/L Sodium Level 142 LAB K(LOINC) 3.5-5.0 mEq/L Potassium Level 3.9 LAB CL(LOINC) 98-110 mEq/L Chloride 106 LAB CO2(LOINC) 22-32 mEq/L CO2 25 LAB EBAL(LOINC 4.0-15.0 mEq/L ) Electrolyte Balance 11.0 LAB BUN(LOINC) 8.0-22.0 mg/dL BUN 9.0 LAB CRE(LOINC) 0.50-1.20 mg/dL Creatinine Lvl (s) 0.69 LAB BC(LOINC) 10.0-22.0 ratio BUN/Creatinine 13.0 Ratio LAB CA(LOINC) 8.4-10.1 mg/dL Low Calcium Lvl 7.9 Performed By: #### A1C, LIPID, ANEU, CBC, GFR, BMP, ADIFF #### [place] [address] .GFR Collected: 07/24/2018 Status: F Source: [facility] 2:30 AM [facility] TYPE CODE TESTS RESULT OUT OF REFERENCE UNITS RANGE LAB GFRAA(LOINC ml/min/1.73 ) sqm GFR >60 Guyanese Result Comment: GFR Population mean for , Non- Americans Ages 20-29 = 116 mL/min/1.73 sq.m. Ages 30-39 = 107 mL/min/1.73 sq.m. Ages 40-49 = 99 mL/min/1.73 sq.m. Ages 50-59 = 93 mL/min/1.73 sq.m. Ages 60-69 = 85 mL/min/1.73 sq.m. Ages 70+ = 75 mL/min/1.73 sq.m. Chronic Kidney Disease: Less than 60 mL/min/1.73 square meters End Stage Renal Disease: Less than 15 mL/min/1.73 square meters LAB GFRNO(LOINC) ml/min/1.73sqm GFR Non- >60 Result Comment: GFR Population mean for , Non- Americans Ages 20-29 = 116 mL/min/1.73 sq.m. Ages 30-39 = 107 mL/min/1.73 sq.m. Ages 40-49 = 99 mL/min/1.73 sq.m. Ages 50-59 = 93 mL/min/1.73 sq.m. Ages 60-69 = 85 mL/min/1.73 sq.m. Ages 70+ = 75 mL/min/1.73 sq.m. Chronic Kidney Disease: Less than 60 mL/min/1.73 square meters End Stage Renal Disease: Less than 15 mL/min/1.73 square meters Performed By: #### A1C, LIPID, ANEU, CBC, GFR, BMP, ADIFF #### [address] [address] LIPID Collected: 07/24/2018 Status: F Source: [facility] 2:30 AM [facility] REPOSITORY TYPE CODE TESTS RESULT OUT OF REFERENCE UNITS RANGE LAB CHOL(LOINC 50-199 mg/dL ) Cholesterol 145 Result Comment: Cholesterol Reference Interval: Less than 200 Desirable 200-239 Borderline high risk 240 and above High risk LAB TRIG(LOINC) 3-149 mg/dL Triglycerides 115 Result Comment: Triglyceride Reference Interval: Less than 150 Normal 150-199 Borderline high risk 200-499 High risk 500 or higher Very high risk LAB HD(LOINC) 40-59 mg/dL HDL Cholesterol 53 Result Comment: HDL Reference Interval: Less than 40 Low - high risk 60 or above Optimal/lowers risk LAB LDL(LOINC) 0-129 mg/dL LDL Cholesterol 69 Result Comment: LDL is a calculated result and requires a 12-hr fast. LDL Reference Interval: Less than 100 Optimal 100-129 Near or above optimal 130-159 Borderline high risk 160-189 High risk 190 and above Very high risk Performed By: #### A1C, LIPID, ANEU, CBC, GFR, BMP, ADIFF #### [place] [address] A1C Collected: 07/24/2018 Status: F Source: [facility] 2:30 AM [facility] REPOSITORY TYPE CODE TESTS RESULT OUT OF RANGE REFERENCE UNITS LAB A1C(LOINC) 4.0-6.0 % High Hgb A1c 7.5 Performed By: #### A1C, LIPID, ANEU, CBC, GFR, BMP, ADIFF #### [place] [id number] APTT Collected: 07/24/2018 Status: F Source: [facility] 2:30 AM [facility] REPOSITORY TYPE CODE TESTS RESULT OUT OF REFERENCE UNITS RANGE LAB PDOSE(LOIN C) Heparin dose Heparin IV (APTT) LAB APTT0(LOIN 25.0-35.0 seconds C) High APTT 50.6 Result Comment: For Heparin anticoagulation therapy, the recommended therapeutic range is: 54-77 seconds (APTT Correlation with Anti-Xa therapeutic range of 0.3-0.7 units/ml). PLEASE REFERENCE THE PHARMACY PROTOCOL FOR DOSING. Performed By: #### APTT #### [place] [id number] [place] [id number] TROPI Collected: 07/23/2018 Status: F Source: [facility] 10:26 PM [facility] REPOSITORY TYPE CODE TESTS RESULT OUT OF REFERENCE UNITS RANGE LAB TROPI(LOINC 0.000-0.040 ng/mL ) High Troponin I 12.000 Result Comment: Troponin I reference ranges (06/13/14): 0.00-0.040 ng/mL Negative and non-diagnostic. >0.040 ng/mL Consistent with cardiac damage, increased clinical risk and possibility of myocardial infarction. Serial measurements, a rise & fall in test results, clinical history, appropriate symptoms and/or ECG changes may help assess possibility of IA. *Other non-acute coronary syndrome conditions such as CHF, myocarditis, pulmonary emboli, sepsis and cardiac surgery could result in myocardial damage and increased troponin levels. Performed By: #### TROPI #### [address] [address] XR CHEST 2 VIEWS Observed: 07/23/2018 Status: F Source: [facility] 8:00 PM [facility] REPOSITORY ORIGINAL XR CHEST 2 VIEWS Clinical Statement: Chest pain COMPARISON: None FINDINGS: There is no focal consolidation. No pleural fluid or pneumothorax. The heart size is within normal limits. No aggressive osseous lesions are identified and there are no visible acute fractures . A calcified granulomas visible in the RIGHT lower lung. Degenerative changes are present in the spine. IMPRESSION: No acute cardiopulmonary abnormality. Interpreted By: Jose Ortega Preliminary Report By: Jose Ortega Electronically Signed By: oJse Ortega Dictated Date: 07/23/2018 8:25:40 PM Prelim Date: 07/23/2018 8:25:40 PM Sign Date: 07/23/2018 8:26:05 PM BG Collected: 07/23/2018 Status: F Source: Phot[facility]log 7:50 PM [facility] REPOSITORY Order Comment: on Room Air. Preop Cardiothoracic OR (date) TYPE CODE TESTS RESULT OUT OF REFERENCE UNITS RANGE LAB PH(LOINC) 7.380-7.460 pH High 7.486 LAB PCO2(LOINC 32.0-46.0 mmHg ) Low pCO2 31.4 LAB PO2(LOINC) 74.0-108.0 mmHg pO2 77.4 LAB HCO3(LOINC 21.0-29.0 mmol/L ) HCO3 23.2 LAB TCO2(LOINC 22.0-30.0 mmol/L ) CO2 Totl 24.1 LAB BE(LOINC) mmol/L Base Excess 0.5 LAB O2SAT(LOIN 92.0-96.0 % C) O2 Sat High 96.4 LAB BPRES(LOIN mmHg C) Barometric 743 Pressure Performed By: #### BG #### [place] [address] CMP Collected: 07/23/2018 Status: F [facility]: [facility] TYPE CODE TESTS RESULT OUT OF REFERENCE UNITS RANGE LAB GLU(LOINC) 82-115 mg/dL Glucose High Level 155 LAB NA(LOINC) 136-145 mEq/L Sodium Level 139 LAB K(LOINC) 3.5-5.0 mEq/L Potassium Level 3.9 LAB CL(LOINC) 98-110 mEq/L Chloride 107 LAB CO2(LOINC) 22-32 mEq/L CO2 23 LAB EBAL(LOINC 4.0-15.0 mEq/L ) Electrolyte Balance 9.0 LAB BUN(LOINC) 8.0-22.0 mg/dL BUN 9.0 LAB CRE(LOINC) 0.50-1.20 mg/dL Creatinine Lvl (s) 0.66 LAB BC(LOINC) 10.0-22.0 ratio BUN/Creatinine 13.6 Ratio LAB CA(LOINC) 8.4-10.1 mg/dL Low Calcium Lvl 8.1 LAB PROT(LOINC 6.0-8.5 G/dL ) Total Protein 6.5 LAB ALB(LOINC) 3.2-4.8 G/dL Low Albumin Level 3.0 LAB GLB(LOINC) 1.5-3.8 G/dL Globulin 3.5 LAB AG(LOINC) 0.9-1.6 ratio A/G Ratio 0.9 LAB BILT(LOINC 0.2-1.2 mg/dL ) Bili Total 0.5 LAB AP(LOINC) 38-126 U/L Alk Phos 72 LAB AST(LOINC) 8-34 U/L AST/SGOT High 77 LAB ALT(LOINC) 10-49 U/L ALT/SGPT 32 Performed By: #### CMP, TROPI, PRO, GFR, APTT, PBNP #### [address] [address] PBNP Collected: 07/23/2018 Status: F Source: [facility] 6:25 PM [facility] REPOSITORY TYPE CODE TESTS RESULT OUT OF REFERENCE UNITS RANGE LAB PBNP(LOINC) 0-900 pg/mL High N-Terminal 1829 proBNP Result Comment: NT-proBNP results of less than 300 pg/mL effectively rules out acute congestive heart failure with 99% negative predictive value. Performed By: #### CMP, TROPI, PRO, GFR, APTT, PBNP #### [address] [address] .GFR Collected: 07/23/2018 Status: F Source: [facility] 6:25 PM [facility] REPOSITORY TYPE CODE TESTS RESULT OUT OF REFERENCE UNITS RANGE LAB GFRAA(LOINC ml/min/1.73 ) sqm GFR >60 [place]ese Result Comment: GFR Population mean for , Non- Americans Ages 20-29 = 116 mL/min/1.73 sq.m. Ages 30-39 = 107 mL/min/1.73 sq.m. Ages 40-49 = 99 mL/min/1.73 sq.m. Ages 50-59 = 93 mL/min/1.73 sq.m. Ages 60-69 = 85 mL/min/1.73 sq.m. Ages 70+ = 75 mL/min/1.73 sq.m. Chronic Kidney Disease: Less than 60 mL/min/1.73 square meters End Stage Renal Disease: Less than 15 mL/min/1.73 square meters LAB GFRNO(LOINC) ml/min/1.73sqm GFR Non- >60 Result Comment: GFR Population mean for , Non- Americans Ages 20-29 = 116 mL/min/1.73 sq.m. Ages 30-39 = 107 mL/min/1.73 sq.m. Ages 40-49 = 99 mL/min/1.73 sq.m. Ages 50-59 = 93 mL/min/1.73 sq.m. Ages 60-69 = 85 mL/min/1.73 sq.m. Ages 70+ = 75 mL/min/1.73 sq.m. Chronic Kidney Disease: Less than 60 mL/min/1.73 square meters End Stage Renal Disease: Less than 15 mL/min/1.73 square meters Performed By: #### CMP, TROPI, PRO, GFR, APTT, PBNP #### [place] [address] APTT Collected: 07/23/2018 Status: F Source: [facility] 6:25 [facility] REPOSITORY TYPE CODE TESTS RESULT OUT OF REFERENCE UNITS RANGE LAB PDOSE(LOINC ) Heparin dose None (APTT) Result Comment: patient not on heparin per Radha Chirinos LAB APTT0(LOINC) 25.0-35.0 seconds APTT 32.9 Result Comment: For Heparin anticoagulation therapy, the recommended therapeutic range is: 54-77 seconds (APTT Correlation with Anti-Xa therapeutic range of 0.3-0.7 units/ml). PLEASE REFERENCE THE PHARMACY PROTOCOL FOR DOSING. Performed By: #### CMP, TROPI, PRO, GFR, APTT, PBNP #### [place] [address] PRO Collected: 07/23/2018 Status: F Source: [facility] 6:25 [facility] REPOSITORY TYPE CODE TESTS RESULT OUT OF REFERENCE UNITS RANGE LAB PT(LOINC) 9.0-14.6 seconds Protime 13.3 Result Comment: Effective 04/19/08, Protime results may be affected by some antibiotics (i.e. Ciprofloxacin, Azithromycin, Bactrim) which may potentiate the action of oral anticoagulants, with further increases in Protime/INR. LAB INR(LOINC) ratio PT International Ratio 1.2 Result Comment: The [place] [employer] (CHEST, 1992, 102:312S-25S) recommended therapeutic range for oral anticoagulant therapy is: LOW RISK: Prophylaxis of venous thrombosis INR: 2.0-3.0 Treatment of pulmonary embolism 2.0-3.0 Prevention of systemic embolism 2.0-3.0 HIGH RISK: Mechanical prosthetic valves 2.5-3.5 Performed By: #### CMP, TROPI, PRO, GFR, APTT, PBNP #### [address] [address] TROPI Collected: 07/23/2018 Status: F Source: [facility] 6:25 PM [facility] REPOSITORY TYPE CODE TESTS RESULT OUT OF REFERENCE UNITS RANGE LAB TROPI(LOINC 0.000-0.040 ng/mL ) High Troponin I 11.400 Result Comment: Troponin I reference ranges (06/13/14): 0.00-0.040 ng/mL Negative and non-diagnostic. >0.040 ng/mL Consistent with cardiac damage, increased clinical risk and possibility of myocardial infarction. Serial measurements, a rise & fall in test results, clinical history, appropriate symptoms and/or ECG changes may help assess possibility of IA. *Other non-acute coronary syndrome conditions such as CHF, myocarditis, pulmonary emboli, sepsis and cardiac surgery could result in myocardial damage and increased troponin levels. Performed By: #### CMP, TROPI, PRO, GFR, APTT, PBNP #### [place] [address] TSH Collected: 07/23/2018 Status: F Source: [facility] 6:25 [facility] REPOSITORY TYPE CODE TESTS RESULT OUT OF RANGE REFERENCE UNITS LAB TSH(LOINC) 0.360-3.740 mcIU/mL TSH 2.320 Result Comment: Please note as of 04/19/17 new pediatric reference intervals were added for this test. Performed By: #### TSH #### [place] [address] TEGPMH Collected: 07/23/2018 Status: F Source: [facility] 6:25 [facility] REPOSITORY TYPE CODE TESTS RESULT OUT OF REFERENCE UNITS RANGE LAB RTEGH(LOIN 5.0-10.0 minutes C) Low R TEG with Heparin 4.5 LAB KTEGH(LOIN 1.0-3.0 minutes C) K TEG with Heparin 1.2 LAB ATEGH(LOIN 53.0-72.0 degrees C) Angle TEG with Heparin 71.8 LAB MATEGH(BOBBY 50.0-70.0 mm NC) MA Max High Clot TEG with 71.6 Heparin LAB WL49AYG(LO 0.0-8.0 % INC) LY30 Lysis TEG with NT Heparin LAB INIADPH(LO % INC) Inhibition ADP 48.9 with Heparin LAB INIAAH(BOBBY % NC) Inhibition AA 98.3 with Heparin LAB MAACTH(BOBBY mm NC) MA Activated with 17.8 Heparin LAB MAADPH(BOBBY mm NC) MA (ADP) with Heparin 45.3 LAB [facility](LOIN mm C) MA (AA) with Heparin 18.7 Performed By: #### [facility] #### [place] [id number] HISTORY AND PHYSICAL Observed: 07/23/2018 Status: F Source: [place] EXAM 7:54 AM [facility] Medical Records Department [address] [place] [address] History and Physical 07/23/18 0615 MR#: [id number] Acct: [id number] Name: LAURA MATTHEWS Rep #: [id number] : 1955 62 From: Atul Rivas MD PCP: Emmett Lopez MD Status: ADM IN Y Location: [place] [address] Problem List (1) Non-ST elevation IA (NSTEMI) Status: Acute (2) Diabetes mellitus Status: Acute History of Present Illness Date of Admission: 07/23/18 Chief Complaint: Chest pain The patient is a 62 year old F with a significant history of diabetes mellitus who presented because of chest pain that started 3 days before she came to the emergency department. Her pain is located at her entire chest. She describes her pain as a tightening and squeezing. On the first day her chest pain lasted all day. The next day she did not have any pain. However the pain returned on the third day and it lasted all day. She rates her pain as 10 out of 10. The pain started when she was walking. The pain improves somewhat with rest and is exacerbated with exertion. The pain radiates to her back. Associated with her symptoms is nausea without vomiting; diaphoresis and shortness of breath. At emergency department patient was found to have ST depression in leads V3, V4 and V6. Her troponin was severely elevated at 10.9. She received nitroglycerin which temporarily eased her chest pain but her pain came back. Subsequently, she was given fentanyl; Lovenox and metoprolol. At the time of my examination patient denied any pain. Patient reports history of previous chest pain with unremarkable stress test. Patient does not know whether her parents had any disease. However she reported that her uncle and aunts had diabetes. Past Medical History Allergies No Known Allergies Allergy (Verified 07/23/18 05:16) Home Medications: Ambulatory Orders Medication Instructions Recorded Dm Natural Med 1 cap PO BID 07/23/18 Surgical History: cholecystectomy, hysterectomy, - - Neck surgery Psychiatric History: No pertinent psych hx Lives: Alone Smoking Status: Never smoker Alcohol: None - *Family History Maternal Family History: Family History (Last Reviewed 07/23/18 @ 07:29 by Atul Rivas MD) Aunt Diabetes Uncle Diabetes Review of Systems Constitutional: Denies: Chills, Fever, Weight Change Eyes: Denies: Blurred vision, Pain HEENT: Denies: Head Aches, Sinus Congestion, Sinus Drainage Cardiovascular: Reports: Chest Pain, Chest Tightness. Denies: Palpitations Respiratory: Reports: Shortness of Breath. Denies: Cough, Sputum production Gastrointestinal: Reports: Nausea. Denies: Abdominal Pain, Vomiting Genitourinary: Denies: Dysuria Gynecological: Denies: Breast symptoms Musculoskeletal: Denies: Joint Pain, Joint Tenderness Skin: Denies: Rash, Wounds Neurological: Denies: Numbness, Tingling, Focal weakness Psychiatric: Denies: Anxiety, Depression, Homicidal Ideations, Suicidal Ideations Hematologic/ Lymphatic: Denies: Easy Bruising, Easy Bleeding VTE Information - Inpt Only VTE Present on Admission: No VTE Mechan Device Prophylaxis: None VTE Pharm Prophylaxis ordered?: No Reason prophylaxis not ordered:: Treatment Not Indicated - Received therapeutic dose of Lovenox for non-ST elevation IA Patient Problems: Active and Suspected Problems Non-ST elevation IA (NSTEMI) (Acute) Diabetes mellitus (Acute) - Physical Exam General: Alert, Oriented x3, Cooperative HEENT: Atraumatic, PERRLA, EOMI, Normocephalic Neck: Supple, No JVD, Negative Carotid Bruits Lungs: Clear to auscultation, Normal air movement, - - Nontender chest. Cardiovascular: Regular rate, No murmurs Abdomen: Bowel Sounds Present, Soft, Non Tender Extremities: No edema, Capillary Refill Less than 3 Seconds Skin: No rashes, No breakdown Musculoskeletal: No Tenderness to Palpation of Joints or Extremities Lymphatic: No Cervical, Supraclavicular, or Inguinal Adenopathy Neurological: Cranial nerves II-XII grossly intact Psych/Mental Status: Normal Affect, Appropriate Vital Signs Temp Pulse Resp BP Pulse Ox 97.9 F 79 16 120/81 H 98 07/23/18 05:12 07/23/18 06:09 07/23/18 06:09 07/23/18 06:09 07/23/18 06:09 Oxygen Flow Rate (L/min) 2 Oxygen Delivery Method Nasal Cannula Weight: 74.4 kg Body Mass Index (BMI) 29.0 Laboratory Tests Past 24 Hrs WBC 11.0 RBC 4.99 Hgb 14.1 Hct 41.6 MCV 83.4 MCH 28.3 MCHC 33.9 RDW 13.4 Assessment/Plan All Active Problems Non-ST elevation IA (NSTEMI) (Acute) Diabetes mellitus (Acute) The patient is a 62 year old F with a significant history of diabetes mellitus who presented because of chest pain and found to have ST depression in leads V3, V4, V6; and also with severely elevated troponin of 10.9. Non-ST elevation IA Patient with chest pain; abnormal EKG and troponin of 10.9. Admit to a monitored bed on PCU CXR independently reviewed confirms no acute cardia pulmonary pathology. EKG with ST depression in V3, V4 and V6 and inferior leads. Received 324 mg aspirin at emergency department. Received fentanyl at the ED Received therapeutic dose of Lovenox at emergency department. ASA 81 mg p.o. daily Cardiology consulted. Cardiology plans to take patient to the cardiac lab for cardiac catheterization. High intensity statin started by cardiology. Diabetes mellitus On admission blood glucose was fairly controlled. Patient reportedly takes herbal supplements at home and watch her diet. Patient is n.p.o. for cardiac catheterization. Accu-Chek before meals at bedtime and correction scale insulin. Adjust Accu-Chek and insulin therapy when patient is no longer n.p.o. DVT prophylaxis Patient received treatment dose of Lovenox on day of admission. Prophylaxis not ordered at this time. Consider DVT prophylaxis if patient stays after the day of admission. Code Visit Inpatient E AND M: 73516 Init Hosp L3 07/23/18 0754 <Electronically signed by Atul Rivas MD> Date Atul Rivas MD Cosigner Signature: Date (if applicable) CC: Atul Rivas MD; Emmett Lopez MD Signed EMERGENCY DEPARTMENT Observed: 07/23/2018 Status: F Source: [place] SUMMARY 6:07 AM [facility] Medical Records Department [address] [place] [address] Emergency Department Summary 07/23/18 0604 MR#: [id number] Acct: [id number] Name: LAURA MATTHEWS Rep #: [id number] : 1955 62 From: Chetan Camilo DO PCP: Emmett Lopez MD Status: REG ER - ER Visit Summary Date of Service: 07/23/18 Chief Complaint: [Chest pain] History of Present Illness: The patient is a 62 F [presents the emergency department complaint of chest discomfort that started 3 days ago. Patient's had intermittent discomfort that is exertional. Patient feels short of breath with it. Patient states the pain radiates to her back at times. Currently she rates her pain a 5 out of 10. Patient is a diabetic. Patient has not had any cardiac history. She did travel to [place] in April. Patient has not had fever or cough.] Physical Examination: [HEENT-PERRLA, EOMI. Cranial nerves II through XII grossly intact. TMs clear. Mucous membranes moist. No adenopathy. Cardiovascular-regular rate and rhythm without murmur or ectopy Lungs-clear to auscultation, chest wall stable without crepitus or subcu emphysema Abdomen-normoactive bowel sounds, soft, nontender, no rebound or rigidity, no peritoneal signs. Extremities-intact 4, normal range of motion, normal pulses, atraumatic] Test Results: [EKG obtained on arrival showed a sinus rhythm with a ventricular rate of [address] changes noted including subtle ST depression inferior lateral leads. No old EKGs available for comparison. CBC with differential is normal. Chemistries were normal. Troponin was elevated 10.9. Chest x-ray showed nothing acute. Repeat EKG obtained showed a sinus rhythm with a ventricular rate of 80 bpm not significantly changed from first EKG.] Emergency Department Course and Treatment: [Patient received aspirin on presentation and 1 sublingual nitro every 5 minutes x3 and had initial pain improvement but then the pain started to come back. Patient received fentanyl 25 mg IV. Patient was started on Lovenox 80 mg subcu.] Treatment Plan: [Admit for further workup and evaluation of her non-ST elevation IA] Disposition: [Admit] Impression: [Chest pain Non-ST elevation IA] This note was generated with [employer] dictation software. It may contain incorrect words, spelling, and punctuation that were not noted in review of the chart prior to signing ED Disposition - Plan for ED Patient: Chief Complaint: Chest Pain Referrals: Emmett Lopez MD [Primary Care Provider] - What to do if you have Problems For any increased pain, shortness of breath, bleeding, nausea or vomiting, chest pain, or any unexpected problems, contact your Primary Care Provider. Call [facility] ([phone]) or report to the closest Emergency Room. Call 911 if necessary. 07/23/18606 <Electronically signed by Chetan Camilo DO> Date Chetan Camilo DO Cosigner Signature (If Indicated): Date CC: Emmett Lopez MD CHEST 1 VIEW Observed: 07/23/2018 Status: F Source: [place] (PORTABLE) 5:25 AM [facility] Imaging Services [address] [place] [address] Chest 1 View (Portable) MR#: [id number] Acct: [id number] Name: LAURA MATTHEWS Rep #: [id number] : 1955 F 62 From: Talita Colmenares MD PCP: Emmett Lopez MD Status: REG ER Study: Chest 1 View (Portable) Date of Exam: 07/23/18 Exam# [id number] Ordering Dr: Chetan Camilo DO STUDY: X-RAY CHEST REASON FOR EXAM: Female, 62 years old. Back pain started Friday, decreased appetite, chest pain. Feels like my heart is racing. TECHNIQUE: Single AP portable view of the chest. COMPARISON: CT chest 08/13/2013 FINDINGS: There is a stable calcified granuloma in the right parahilar parenchyma. As hyperinflation. There is no demonstrated pleural abnormality. Normal size heart. Normal mediastinum and jose. Normal visualized pulmonary arteries. Normal visualized aortic arch and descending thoracic aorta. There are diffuse degenerative changes of the visualized thoracic spine. Normal visualized ribs, clavicles, and shoulders. There is no demonstrated abnormality of the visualized soft tissue structures of the upper abdomen. RAD/Chest 1 View (Portable) IMPRESSION: No pulmonary edema, congestive heart failure or confluent pneumonia. Hyperinflation remote chondromatous exposure. Electronically Signed: Talita Colmenares MD at 5:54 EDT , Service support , CC: Chetan Camilo DO; Emmett Lopez MD Tower Erector Helper: Signed CBC W/DIFF, AUTOMATED Collected: 07/23/2018 Status: F Source: [place] 5:21 AM [facility] TYPE CODE TESTS RESULT OUT OF RANGE REFERENCE UNITS LAB L100.1000 4.4-11.0 K/mm3 Normal WBC 11.0 LAB L100.1200 4.2-5.4 M/mm3 Normal RBC 4.99 LAB L100.1300 12.0-15.0 g/dl Normal HGB 14.1 LAB L100.1400 37-47 % Normal HCT 41.6 LAB L100.1500 81-99 fL Normal MCV 83.4 LAB L100.1600 27.0-32.0 pg Normal MCH 28.3 LAB L100.1700 32-36 g/gl Normal MCHC 33.9 LAB L100.1810 11.6-14.6 % Normal RDW CV 13.4 LAB L100.1820 35.1-43.9 fl Normal RDW SD 40.3 LAB L100.1900 150-450 K/mm3 Normal PLT 215 LAB L100.2000 6.2-12.0 fl Normal MPV 10.9 LAB L100.2100 47-70 % Normal NEUT% 65.6 LAB L100.2200 19-41 % Normal LY% 23.3 LAB L100.2300 0-10 % Normal MONO% 9.9 LAB L100.2400 0-5 % Normal EO% 0.9 LAB L100.2500 0-1 % Normal BASO% 0.1 LAB L100.2550 0.0-0.9 % Normal IM GRAN % 0.200 Result Comment: IG% - Immature Granulocytes (promyelocytes, myelocytes and metamyelocytes) > 1% indicates that a LEFT SHIFT is Present. LAB L100.2620 2.0-7.7 X10 3/uL Normal Absolute Neut 7.2 LAB L100.2720 0.83-4.51 X10 3/ul Normal Absolute Lymph 2.56 Performed By: #### L100.0100 #### [facility] [address] [place], [address] BASIC METABOLIC Collected: 07/23/2018 Status: F Source: [place] PROFILE (BMP) 5:21 AM [facility] TYPE CODE TESTS RESULT OUT OF RANGE REFERENCE UNITS LAB L501.0100 74-106 mg/dL High GLU 174 Result Comment: Fasting Glucose result greater than or equal to 126 mg/dL suggests DIABETES MELLITUS per A.D.A. criteria. Please note revised GLUCOSE reference range effective 2017. LAB L501.1000 7-18 mg/dL Normal BUN 7 LAB L501.1100 0.55-1.02 mg/dL Normal CREAT,SERUM 0.72 Result Comment: The validity of the calculated GFR AND GFRAA in patients over 70 years has not been determined. Clinical correlation is essential. LAB L501.1110 >60 mL/min Normal EST GFR 88 Result Comment: Non- GFR Calc LAB L501.1115 >60 mL/min Normal EST GFR - AA 106 Result Comment: GFR Calc LAB L501.1255 ml/min Normal Estimated CRCL 68.73 LAB L501.1300 10-20 RATIO Low BUN/CRE 9.7 LAB L501.2200 8.5-10 mg/dL Normal .1 CA 9.0 LAB L501.5300 136-14 mmol/L Normal 5 NA 138 LAB L501.5600 3.5-5. mmol/L Normal 1 K 3.9 LAB L501.5900 98-107 mmol/L Normal CL 104 LAB L501.6100 21.0-3 mmol/L Normal 2.0 CO2 25.0 LAB L501.6200 5-15 Normal GAP 9 Performed By: #### L500.2500, L501.4010 #### [facility] [address] [facility] [place], [address] TROPONIN-I Collected: 07/23/2018 Status: F Source: [place] 5:21 AM [facility] TYPE CODE TESTS RESULT OUT OF RANGE REFERENCE UNITS LAB L501.4010 <0.045 ng/mL High alert 10.900 TROPONIN-I Result Comment: Critical Result(s) Called at: 05:57:43 07/23/2018 by: Ashley Burgos to EFink TROPONIN-I EXPECTED VALUES <0.045 Negative 0.045 - 0.590 Consistent with Cardiac Damage > OR = 0.600 Critical Value Not every elevated troponin is indicative of IA. These values should be used with clinical judgement in examining the patient's clinical picture for diagnosis. To establish a diagnosis of IA versus myocardial injury, there must be a demonstrated rise and/or fall in the troponin values, in addition to ischemic symptoms, EKG changes, new regional wall motion abnormality, and/or angiographical evidence. PLEASE NOTE: REFERENCE RANGES EDITED 18 Performed By: #### L500.2500, L501.4010 #### [facility] [address] [facility] [place], [address] LIPID PROFILE Collected: 07/23/2018 Status: F Source: [place] 5:21 AM [facility] TYPE CODE TESTS RESULT OUT OF RANGE REFERENCE UNITS LAB L501.4900 200 mg/dL Normal CHOL 189 Result Comment: <200 mg/dL Desirable 200-240 mg/dL Borderline >240 mg/dL High Risk LAB L501.5000 mg/dL Normal TRIG 112 Result Comment: The drugs N-Acetylcysteine and Metamizole may falsely depress this assay. Serum Triglycerides Reference Interval Normal <150 mg/dL Borderline high 150 - 199 mg/dL High 200 - 499 mg/dL Very High > or = 500 mg/dL LAB L501.6400 mg/dL Normal HDL 63 Result Comment: The drugs N-Acetylcysteine and Metamizole may falsely depress this assay. Reference Range HDL <40 mg/dL Low HDL Cholesterol HDL >or= 60 mg/dL High HDL Cholesterol LAB L501.6500 0-130 mg/dL Normal LDL 104 LAB L501.6600 5-40 mg/dL Normal VLDL 22 Performed By: #### L500.4100 #### [facility] [address] [place], [address] BASIC METABOLIC Collected: 06/19/2018 Status: F Source: [place] PROFILE (BMP) 10:15 AM [facility] TYPE CODE TESTS RESULT OUT OF RANGE REFERENCE UNITS LAB L501.0100 74-106 mg/dL High GLU 142 Result Comment: Fasting Glucose result greater than or equal to 126 mg/dL suggests DIABETES MELLITUS per A.D.A. criteria. Please note revised GLUCOSE reference range effective 2017. LAB L501.1000 7-18 mg/dL Normal BUN 11 LAB L501.1100 0.55-1.02 mg/dL Normal CREAT,SERUM 0.72 Result Comment: The validity of the calculated GFR AND GFRAA in patients over 70 years has not been determined. Clinical correlation is essential. LAB L501.1110 >60 mL/min Normal EST GFR 87 Result Comment: Non- GFR Calc LAB L501.1115 >60 mL/min Normal EST GFR - AA 105 Result Comment: GFR Calc LAB L501.1300 10-20 RATIO Normal BUN/CRE 15.2 LAB L501.2200 8.5-10.1 mg/dL CA Normal 9.5 LAB L501.5300 136-145 mmol/L NA Normal 141 LAB L501.5600 3.5-5.1 mmol/L K Normal 4.0 LAB L501.5900 98-107 mmol/L CL Normal 104 LAB L501.6100 21.0-32.0 mmol/L Normal CO2 30.0 LAB L501.6200 5-15 Normal GAP 7 Performed By: #### L500.2500 #### [facility] [address] [place], [address] L/S SPINE MIN 4 Observed: 05/29/2018 Status: F Source: [place] VIEWS 4:03 PM [facility] REPOSITORY [facility] Imaging Services [address] [address] L/S Spine Min 4 Views MR#: [id number] Acct: [id number] Name: LAURA MATTHEWS Rep #: [id number] : 1955 F 62 From: Ryan Garcia MD PCP: Emmett Lopez MD Status: REG CLI Study: L/S Spine Min 4 Views Date of Exam: 05/29/18 Exam# [id number] Ordering Dr: Jennifer Villegas MD STUDY: X-RAY - LUMBAR SPINE REASON FOR EXAM: Female, 62 years old. Severe back pain over L1. TECHNIQUE: 5 view(s) of the lumbar spine were obtained. COMPARISON: None FINDINGS: There is straightening of the normal lumbar lordosis. There is minimal dextroscoliosis which could be positional. There is a normal alignment of the vertebrae. There is multilevel endplate spondylosis of the lumbar vertebrae. Normal disc space heights. There is no demonstrated acute compression fracture deformity. There is no demonstrated spondylolysis of the pars interarticulares. There is mild atherosclerotic calcification of the abdominal aorta without a demonstrated aneurysm. RAD/L/S Spine Min 4 Views IMPRESSION: Degenerative changes of the spine, as detailed above. If symptoms persist, MRI of the lumbar spine is recommended. Electronically Signed: Ryan Garcia MD at 16:07 EDT Tel , Service support , CC: Jennifer Villegas MD; Emmett Lopez MD Tower Erector Helper: Signed ALLERGIES ALLERGIES DATE TYPE / CODE NAME / CODE REACTION SEVERITY SOURCE 08/21/2018 Drug No Known Unknown [facility] Allergy/4160 Allergies/F00 Hospital 88839(SNOMED [id number](RXNOR Repository CT) M) ENCOUNTERS ENCOUNTERS ADMIT/DISCHARGE ACCOUNT NUMBER ADMITTING ENCOUNTER LOCATION SOURCE CLASS 09/21/2018 [id number] [facility] lding:CR Repository 09/03/2018 [id number] Ambulatory [facility] lding:CR Repository 08/21/2018/ [id number] Ambulatory BMSBuilding [place] 018 :BMS.[facility] Repository 08/11/2018/ [id number] Ambulatory AULTMANBuil [place] 018 ding:[facility] Repository 08/01/2018/ [id number] Ambulatory RBuilding:W [place] 018 [facility] Repository 07/23/2018/ [id number] CHARLENE Inpatient ABuilding:MOLLY Mays MD Encounter VSDRoom: [place] [id number]: [facility] Repository 07/23/2018/ [id number] Atul Rivas [place] 018 Encounter [facility] lding:PCURo Repository om: [id number]: 1 07/23/2018 [id number] Atul Rivas Ambulatory BMSBuilding [place] :BMS.[facility] Repository 07/23/2018 [id number] Atul Rivas Ambulatory BMSBuilding [place] :BMS.[facility] Repository 07/23/2018/ [id number] Ambulatory BMSBuilding [place] 018 :[facility] Repository 06/19/2018 [id number] Ambulatory [facility] lding:BFHLA Repository B 05/29/2018 [id number] Ambulatory [facility] lding:MTRAD Repository PAYERS PAYERS ENCOUNTER GUARANTOR PAYER SUBSCRIBER SOURCE 09/21/2018 LAURA [id number] [place] Insurance:[facility] TONYB: [facility] [id number], [place] [address]Bwr: GROUPPolicy Number: Repository [id number] (HP) Date: [address] [address]ZB: 09/21/2018 Secondary NOT GIVENUNK [place] Insurance:SELF PAY [facility] Number: Effective Repository Date:2018-09-03 09/03/2018 LAURA J Primary LAURA J [place] [id number] MITUL Insurance:RAY WEAVERDOB: [facility] [id number], [place] [address]Joh: GROUPPolicy Number: Repository [id number] (HP) Date: [address] [address]AM: 09/03/2018 Secondary NOT GIVENUNK [place] Insurance:SELF PAY [facility] Number: Effective Repository Date:2018-08-25 08/21/2018 LAURA J Primary LAURA J [place] [id number] MITUL Insurance:RAY WEAVERDOB: [facility] [id number], [place] [address]Sdx: GROUPPolicy Number: Repository [id number] (HP) Date: [address] [address]PA: 08/21/2018 Secondary NOT GIVENUNK [place] Insurance:SELF PAY [facility] Number: Effective Repository Date:2018-08-17 08/11/2018 LAURA J Primary [facility]A [facility] Insurance:SELF WEAVERDOB: [facility] [id number] PAYPolicy Number: [id number] Repository MITUL Effective 4 [facility] Date:2018-08-11 [place], [place] [address]Jpu: [id number] Name:[place], [place] [address]Fwu: (HP) (HP) (WP) 08/01/2018 LAURA J Primary LAURA J [facility]: Insurance:SELF WEAVERDOB: [facility] PAYPolicy Number: [id number] Repository MITUL Effective 4 MITUL [facility] Date:2018-07-30 - [place], [place] [address]Wqu: [id number] Name: [place] [id number]: (HP) (HP) (WP) 07/23/2018 LAURA J Primary LAURA [facility] WEAVERDOB: Insurance:SELF WEAVERDOB: [facility] PAYPolicy Number: [id number] Repository MITUL Effective 4 MITUL [facility] Date:2018-07-23 - [place], [place] [address]Hes: [id number] Name: [place] [id number]: (HP) (HP) (WP) 07/23/2018 LAURA J Primary LAURA J [place] [id number] [place]UL Insurance:RAY WEAVERDOB: [facility] [id number], [place] [address]Vtp: GROUPPolicy Number: Repository Effective (HP) Date: [address] [address]ND: 07/23/2018 Secondary NOT GIVENUNK [place] Insurance:SELF PAY [facility] Number: Effective Repository Date:2018-07-23 07/23/2018 LAURA J Primary LAURA J [place] [id number] MITUL Insurance:RAY WEAVERDOB: [facility] [id number], [place] [address]Yeq: GROUPPolicy Number: Repository Effective (HP) Date: [address] [address]MR: 07/23/2018 Secondary NOT GIVENUNK [place] Insurance:SELF PAY [facility] Number: Effective Repository Date:2018-07-23 07/23/2018 LAURA J Primary NOT GIVENUNK [place] [id number] [place] Insurance:SELF [place], [place] [address]Olm: Number: Effective Repository Date:2018-07-23 (HP) 07/23/2018 LAURA J Primary LAURA J [place] [id number] [place]UL Insurance:RAY WEAVERDOB: [facility] [id number], [place] [address]Tyf: GROUPPolicy Number: Repository Effective (HP) Date: [address] [address]YM: 07/23/2018 Secondary NOT GIVENUNK [place] Insurance:SELF PAY [facility] Number: Effective Repository Date:2018-07-23 06/19/2018 LAURA J Primary LAURA J [place] [id number] MITUL Insurance:RAY WEAVERDOB: [facility] [id number], [place] [address]Yoz: GROUPPolicy Number: Repository Effective (HP) Date: [address] [address]TU: 06/19/2018 Secondary NOT GIVENUNK [place] Insurance:SELF PAY [facility] Number: Effective Repository Date:2018-06-19 05/29/2018 LAURA J Primary Insurance:[facility] LAURA J [place] [id number] [place] [facility] WEAVERDOB: [facility] Number: [id number], [place] [address]Htm: [id number] Repository Date:2018-05-29 (HP) 05/29/2018 Secondary NOT GIVENUNK [place] Insurance:SELF PAY [facility] Number: Effective Repository Date:2018-05-29
== END ==
PROVIDERS: Family Provider Family Medicine; PCP Family Medicine; Referring Provider Internal Medicine Cardiovascular Disease; Visit Provider Internal Medicine Cardiovascular Disease
DX: I25.10 Atherosclerotic heart disease of native coronary artery without angina pectoris (principal); I25.2 Old myocardial infarction; E11.9 Type 2 diabetes mellitus without complications; Z95.1 Presence of aortocoronary bypass graft; Z90.49 Acquired absence of other specified parts of digestive tract; Z79.82 Long term (current) use of aspirin; Z79.84 Long term (current) use of oral hypoglycemic drugs; Z79.899 Other long term (current) drug therapy

== ENCOUNTER 2018-10-05 09:15 | Outpatient (RCR) | payer OTHER, SELFPAY ==
[2018-09-03 11:19] VITALS: BMI 26.9
--- NOTE | 2018-10-02 08:18 | PCM.CR.ITP ---
Exercise - 30-day Assessment - Visit Date of Eval: 10/02/18 Session #:: 10 - Stages of Change Stages of Change:: Action - Exercise Prescription Mode:: Treadmill, NuStep, Arm Ergometer Frequency (x/week): 3 Duration:: 30-45 MIN METs - Progression: 0.5-1 MET as tolerated: 3.1 Target Heart Rate:: 112-120 WITH MAX hr 107 - Hypertension Medication Changes:: No - Intervention Home Exercise/Activity Goal:: Moderate Exercise 30 min/day x 5 days/wk - Education Goals:: Warm-up, RPE ERMIAS Scale, S/S, Safe Exercise, Self-Monitoring - Exercise Program Goals Exercise Program Goals: Aerobic Activity >30 min Nutrition - 30-Day Assessment - Program Goals Nutrition Program Goals: LDL <70. Total Cholesterol <200. HDL >45. Triglycerides <150. HgbA1C <7%. BMI <25 - Visit Date of Eval: 10/02/18 - Stages of Change Stages of Change:: Action - Lipids Has the patient seen the dietitian?: No - Diabetes Diabetes:: No - Weight Management Weight:: 158 lb - Intervention Referral to dietitian:: No Will attend diet classes:: Yes - Education Attended class for:: Healthy eating Tobacco - Initial Assessment - Program Goals Tobacco Program Goals: Complete smoking cessation. Attend education classes. Improve Knowledge Test score - Learning Barriers Learning Barriers: Ready to Learn Tobacco - 30-Day Assessment - Program Goals Tobacco Program Goals: Complete smoking cessation. Attend education classes. Improve Knowledge Test score - Stage of Change Stages of Change:: Action - Learning Barriers Learning Barriers: Participates in education, Change in behavior - Family Support Do you have family support?: Yes - Tobacco Use Tobacco Use: Non-smoker Do you use smokeless tobacco?: No - Intervention Education Schedule Given:: Yes - Education Attended class for:: Coronary artery disease, Risk factors, Sexuality, Medical compliance, Cardiac A&P, Angina signs & symptoms Psychosocial - Initial Assess - Target Goals Target Goals: Assess presence or absence of depression. Using a valid screening tool, maximizes coping skills. Positive support system - Psychosocial Test Tool Used:: HANDS Depression Questionnaire - Assistive Devices Fall Risk Assessed:: Yes Psychosocial - 30-Day Assess - Target Goals Target Goals: Assess presence or absence of depression. Using a valid screening tool, maximizes coping skills. Positive support system - Stages of Change Stages of Change:: Action - Psychosocial Test Tool Used:: HANDS Depression Questionnaire - Intervention PS - Interventions: Yes Attend Stress Management Classes, Yes Uses Stress Management Skills, No Referral to Mental Health, No Referral to [facility] Case Management, No Referral to Physician - Education Attended classes for:: Coping techniques, Signs & symptoms of depression, Stress management, Relaxation techniques - Patient/Program Goal Preventative Medication(s):: Aspirin, Clopidogrel, Statin/lipid - Assistive Devices Assistive Devices:: None Fall Risk Assessed:: Yes Patient Health Questionnaire 30-Day Re-eval Assessment 1. Little interest or pleasure in doing things: Several days 2. Feeling down, depressed, or hopeless: Not at all 3. Trouble falling or staying asleep, or sleeping too much: Several days 4. Feeling tired or having little energy: Not at all 5. Poor appetite or overeating: Not at all 6. Feeling bad about yourself -- or that you are a failure or have let yourself or your family down: Not at all 7. Trouble concentrating on things, such as reading the newspaper or watching television: Not at all 8. Moving or speaking so slowly that other people could have noticed. Or the opposite - being so fidgety or restless that you have been moving around a lot more than usual: Not at all 9. Thoughts that you would be better off , or of hurting yourself in some way: Not at all How difficult have these problems made it for you to do your work, take care of things at home, or get along with other people?: Not difficult at all Total Score: 2 Self-Efficacy 30-Day Re-eval Assessment We would like to know how confident you are in doing certain activities. Please select your confidence level for:: Select your confidence level for the following using the scale 1-10 where 1 is not at all confident and 10 is totally confident. Your score is the average of all 6 responses. Fatigue: How confident are you that you can keep the fatigue caused by your disease from interfering with the things you want to do? Select Number: 8 Physical Discomfort or Pain: How confident are you that you can keep the physical discomfort or pain of your disease from interfering with the things you want to do? Select Number: 8 Emotional Distress: How confident are you that you can keep the emotional distress caused by your disease from interfering with the things you want to do? Select Number: 8 Other Symptoms or Health Problems: How confident are you that you can keep other symptoms or health problems from interfering with the things you want to do? Select Number: 9 Different Tasks and Activities: How confident are you that you can do the different tasks and activities needed to manage your health condition so as to reduce your need to see a doctor? Select Number: 9 Medication: How confident are you that you can do things other than just taking medication to reduce how much your illness affects your everyday life? Select Number: 9 Total Score:: 8
== END 2018-10-05 23:59 ==
LOC: CR 09:15
PROVIDERS: Family Provider Family Medicine; PCP Family Medicine; Referring Provider Internal Medicine Cardiovascular Disease; Visit Provider Internal Medicine Cardiovascular Disease
DX: I25.2 Old myocardial infarction (principal); I25.10 Atherosclerotic heart disease of native coronary artery without angina pectoris; Z95.1 Presence of aortocoronary bypass graft
CPT/HCPCS: 93798

== ENCOUNTER 2018-10-19 09:15 | Outpatient (RCR) | payer OTHER, SELFPAY ==
[2018-09-03 11:19] VITALS: BMI 26.9
== END 2018-11-05 23:59 ==
LOC: CR 09:15
PROVIDERS: Family Provider Family Medicine; PCP Family Medicine; Referring Provider Internal Medicine Cardiovascular Disease; Visit Provider Internal Medicine Cardiovascular Disease
DX: I25.2 Old myocardial infarction (principal); I25.10 Atherosclerotic heart disease of native coronary artery without angina pectoris; Z95.1 Presence of aortocoronary bypass graft
CPT/HCPCS: 93798

== ENCOUNTER → 2018-12-18 10:25 | Outpatient (CLI) | payer OTHER, SELFPAY ==
[2018-12-18 08:59] VITALS: BMI 27.8
[2018-12-18 12:02] LABS: AST(SGOT) 18 U/L (15-37); Alanine Aminotransfer ALT/SGPT 24 U/L (13-56); Albumin, Serum 3.7 g/dL (3.2-5.0); Alkaline Phosphatase 69 U/L (45-117); Bilirubin, Direct 0.11 mg/dL (0.00-0.30); Cholesterol 120 mg/dL (200); Globulin 3.3 g/dL (2.2-4.2); High Density Lipoprotein 66 mg/dL; Triglycerides 118 mg/dL; Very Low Density Lipoprotein 24 mg/dL (5-40)
== END ==
PROVIDERS: Family Provider Family Medicine; PCP Family Medicine; Referring Provider Internal Medicine Cardiovascular Disease; Visit Provider Internal Medicine Cardiovascular Disease
DX: E78.5 Hyperlipidemia, unspecified (principal)
CPT/HCPCS: 36415; 80061; 80076

== ENCOUNTER → 2019-01-06 09:34 | Outpatient (CLI) | payer SELFPAY ==
[2018-12-18 08:59] VITALS: BMI 27.8
--- NOTE | 2019-01-06 09:38 | ECHOD_ITS ---
Reason For Study: S/P CABG Procedure This was a 2D Doppler, Color Flow transthoracic echocardiogram. Exam performed in department. Left Ventricle Normal LV size. Left ventricular systolic function is normal. The estimated ejection fraction is 60 %. Stage 2 diastolic dysfunction. No regional wall motion abnormalities noted. Right Ventricle Normal RV size. Normal systolic function. Atria The left atrium is mildly enlarged. Normal right atrium. Mitral Valve Normal mitral valve. Mild (1+) eccentric mitral valve insufficiency. Tricuspid Valve Normal tricuspid valve. Mild tricuspid valve insufficiency. Pulmonary artery systolic pressure is 24 mmHg. Aortic Valve Normal aortic valve. Trisinus/trileaflet aortic valve. Pulmonic Valve Normal pulmonic valve. Great Vessels Normal aortic root. The pulmonary artery is normal size. Normal inferior vena cava. Pericardium/Pleural No pericardial effusion. MMode/2D Measurements & Calculations LVIDd: 4.2 cm IVSd: 0.94 cm Ao root diam: 3.0 cm LVIDs: 3.0 cm LVPWd: 0.89 cm RVDd: 3.0 cm FS: 29.5 % LAV(MOD-bp): 67.7 ml LA A4 area: 20.1 cm2 LA dimension(2D): 4.0 cm LAV(MOD-bp) Indexed: 39.2 ml/m2 LAV(MOD-sp2): 76.5 ml LAV(MOD-sp4): 58.7 ml RA A4 area: 10.3 cm2 Time Measurements MV dec time: 0.13 sec Doppler Measurements & Calculations MV E max agapito: 112.3 cm/sec Lat Peak E' Agapito: 7.6 cm/sec Med Peak E' Agapito: 3.1 cm/sec MV A max agapito: 61.0 cm/sec E/E' lat: 14.7 E/E' med: 36.2 MV E/A: 1.8 Ao V2 max: 101.1 cm/sec LV V1 max: 77.1 cm/sec PA V2 max: 73.4 cm/sec Ao max P.1 mmHg LV V1 max P.4 mmHg TR max agapito: 212.7 cm/sec TR max P.1 mmHg Interpretation Summary Normal LV size. Left ventricular systolic function is normal. The estimated ejection fraction is 60 %. Stage 2 diastolic dysfunction. Mild (1+) eccentric mitral valve insufficiency. Ordering Physician: Tal Leone Referring Physician: Emmett Lopez Performed By: Johana Maradiaga, JOSEE, RVT
== END ==
PROVIDERS: Family Provider Family Medicine; PCP Family Medicine; Referring Provider Internal Medicine Cardiovascular Disease; Visit Provider Internal Medicine Cardiovascular Disease
DX: Z95.1 Presence of aortocoronary bypass graft (principal)
CPT/HCPCS: 93306

== ENCOUNTER 2019-06-01 19:42 | Observation (INO) | payer OTHER, SELFPAY ==
[2018-12-18 08:59] VITALS: BMI 27.8
[2019-06-01] VITALS (9 sets, daily range): BP systolic 122–209; BP diastolic 65–91; PULSE 58–69; RESP 12–18; TEMP 36.7–37.1; O2SAT 97–99; BMI 24.2; BMI 27.8; BMI 27.9
--- NOTE | 2019-06-01 19:45 | ED.RN ---
CALLED FOR EKG PER RN REQUEST, PULLED OLD EKGS FOR
--- NOTE | 2019-06-01 19:48 | RAD_ITS ---
STUDY: X-RAY CHEST REASON FOR EXAM: Female, 63 years old. Chest pain TECHNIQUE: Frontal view of the chest COMPARISON: X-ray chest July 23, 2018 FINDINGS: Post CABG changes are present. The lungs are clear. There are no pleural effusions. There is no pneumothorax. The heart is enlarged. The visualized osseous structures are within normal limits. RAD/Chest 1 View (Portable) IMPRESSION: No acute thoracic pathology. Cardiomegaly. Electronically Signed: Wai Sosa, at 20:55 EDT Tel , Service support ,
--- NOTE | 2019-06-01 19:48 | EKG12_ITS ---
Test Reason : CP Blood Pressure : / mmHG Vent. Rate : 066 BPM Atrial Rate : 066 BPM P-R Int : 160 ms QRS Dur : 084 ms QT Int : 392 ms P-R-T Axes : 074 -07 112 degrees QTc Int : 410 ms Normal sinus rhythm ST & T wave abnormality, consider lateral ischemia Abnormal ECG Confirmed by ANNABEL WHITMORE ([id number]), sports editor WILY SALDANA ([id number]) on 06/08/2019 10:04:57 AM Referred By: Little Perkins Confirmed By:ANNABEL WHITMORE
--- NOTE | 2019-06-01 19:51 | ED.VIS.GEN ---
History of Present Illness Chief Complaint: Chest Pain Informant: Patient Onset: Days Context: Gradual Onset Timing: Intermittent Current Severity: Moderate Maximum Severity: Moderate Narrative: The patient presents to the emergency department with chest pain. She states over the past 2 or 3 days, she is been having intermittent substernal heaviness. It does not radiate. States sometimes when it comes on, she will feel nauseated. The patient does have a history of coronary vascular disease. She had three-vessel coronary artery bypass done in July of last year at [place]. She does follow with Dr. Leone. States today, the pain came on at rest. She states it feels similar to her prior AL. It was nonradiating. She did not have any nitro at home. She did take 2 baby aspirin and presented here. She has not had any recent cardiac issues. She denies exertional dyspnea or exertional chest pain. Prior similar symptoms: No Recent Illness/Hospitalization: No Past Medical History - Allergies and Home Meds Allergies/Adverse Reactions: Allergies No Known Allergies Allergy (Verified 06/01/19 19:45) Primary Care Physician: Emmett Lopez MD [Primary Care Provider] - Prior records reviewed: Yes Past Medical History: - - Hypertension, hyperlipidemia, coronary vascular disease Surgical History: cholecystectomy, hysterectomy, - - Neck surgery cervical fusion Smoking Status: Never smoker - Family History Maternal Family History: Family History (Last Reviewed 12/18/18 @ 10:02 by Tal Leone MD) Aunt Diabetes Uncle Diabetes Family History: Reports: Diabetes Paternal Family History: Family History (Last Reviewed 12/18/18 @ 10:02 by Tal Leone MD) Aunt Diabetes Uncle Diabetes Family History: Reports: Diabetes Review of Systems General: Denies: Chills, Fever, Sweats Eyes: Denies: Visual changes - bilaterally, Diplopia ENT: Denies: Rhinorrhea, Sore throat Cardiovascular: Reports: Chest pain Respiratory: Reports: Dyspnea Gastrointestinal: Denies: Abdominal pain, Nausea, Vomiting, Diarrhea, Melena, Hematochezia Genitourinary: Denies: Dysuria, Hematuria, Frequency Musculoskeletal: Denies: Back pain, Extremity Pain Skin: Denies: Rash, Wounds Neurological: Denies: Headache, Weakness, Numbness Physical Exam Vital Signs/Narrative: Vital Signs Temp Pulse Resp BP Pulse Ox 06/01/19 19:46 67 188/89 H 06/01/19 19:43 98.8 F 69 18 209/91 H 99 Inital Vital Signs reviewed: Yes General: Well nourished, Well developed, No Acute Distress Head: Normocephalic, Atraumatic Eyes: Perrl, EOMI ENT: Moist mucous membranes, No rhinorrhea Neck: Supple, Nontender Cardiovascular: Regular rate, Regular rhythm, No murmurs Respiratory: No distress, CTA bilaterally, Chest nontender Abdomen: Soft, Nontender, Nondistended, Normal bowel sounds Back: Nontender, Normal Inspection Extremities: Nontender, No edema Skin: Normal color, No rash Neurological: Alert, Oriented x3, Cranial nerves II-XII grossly intact, Normal Strength, Normal Sensation Psychological: Normal affect, Normal Mood Diagnostic/Tx/Re-eval Chest X-Ray - ED: 1 View, Normal, Heart, Lungs, Chronic Changes, No Infiltrates Clinical Impression(s) from Imaging Studies Chest X-Ray 06/01/19 19:48 IMPRESSION: No acute thoracic pathology. Cardiomegaly. Electronically Signed: Wai Sosa, at 20:55 EDT Tel , Service support , Abnormal Lab Results 06/01/19 06/01/19 06/01/19 19:45 19:45 19:45 WBC 8.1 RBC 4.66 Hgb 12.5 Hct 38.6 MCV 82.8 MCH 26.8 L MCHC 32.4 RDW Std Deviation 46.1 H RDW Coeff of Sharon 15.2 H Plt Count 180 MPV 10.7 Immature Gran % (Auto) 0.200 Neut % (Auto) 34.1 L Lymph % (Auto) 51.9 H Calloway % (Auto) 8.3 Eos % (Auto) 5.3 H Baso % (Auto) 0.2 Absolute Neuts (auto) 2.8 Absolute Lymphs (auto) 4.21 Nucleated RBC % 0 Sodium 143 Potassium 3.7 Chloride 107 Carbon Dioxide 30.0 Anion Gap 6 BUN 9 Creatinine 0.76 Estim Creat Clear Calc 78.42 Est GFR (MDRD) Af Amer 99 Est GFR (MDRD) Non-Af 82 BUN/Creatinine Ratio 11.8 Glucose 166 H Calcium 9.0 Troponin I < 0.015 B-Natriuretic Peptide 75.0 - Rhythm Strip Rhythm Strip: Sinus Rhythm Rate: 70 Ectopy: None - EKG Initial EKG Interpretation: Sinus Rhythm, Inverted T-Waves Prior: Unchanged - Medical Decision Making The patient presents to the emergency department with intermittent chest pain. She does have significant history of coronary vascular disease and has had prior CABG. Patient was given sublingual nitro and had resolution of her pain. Her EKG demonstrates T wave inversions in the lateral leads, but these were unchanged from prior EKG in August 2018. Screening labs including cardiac enzymes are normal. On reevaluation, she is resting comfortably.. Given the patient's history of advanced cardiovascular disease and chest pain, I do feel that she would benefit from observation. She was discussed with the hospitalist and will be admitted. Impression 1. Chest pain with history of coronary vascular disease ED Disposition - Plan for ED Patient: Referrals: Emmett Lopez MD [Primary Care Provider] -
[2019-06-01 19:57] LABS: Absolute Lymphocyte Count 4.21 X10^3/uL (0.83-4.51); Absolute Neutrophil Count 2.8 X10^3/uL (2.0-7.7); Basophil# 0.02 X10^3/uL; Basophil% 0.2 % (0-1); Eosinophil# 0.43 X10^3/uL; Eosinophils% 5.3 % (0-5); Hematocrit 38.6 % (37-47); Hemoglobin 12.5 g/dL (12.0-15.0); Lymphocyte # 4.21 X10^3/ul (4.0); Lymphocyte % 51.9 % (19-41); Mean Corp Hgb Conc 32.4 g/dL (32-36); Mean Corpuscular Hgb 26.8 pg (27.0-32.0); Mean Corpuscular Volume 82.8 fL (81-99); Mean Platelet Vol. 10.7 fl (6.2-12.0); Monocyte# 0.67 X10^3/uL; Monocyte% 8.3 % (0-10); NRBC Flagged by Analyzer 0 % (0-5); Neutrophil # 2.76 X10^3/uL (2.7-7.7); Neutrophil % 34.1 % (47-70); Platelet Count 180 K/mm3 (150-450); RBC Distribution Width CV 15.2 % (11.6-14.6); RBC Distribution Width SD 46.1 fl (35.1-43.9); Red Blood Count 4.66 M/mm3 (4.2-5.4); White Blood Count 8.1 K/mm3 (4.4-11.0)
[2019-06-01] MEDS: Aspirin 81 MG TAB.CHEW 324 MG PO (19:57)
[2019-06-01] MEDS: Ondansetron 4 MG/2 ML Vial IV (19:57)
[2019-06-01] MEDS: Nitroglycerin SL (ED/IMG/CATH) 0.4 MG TABLET SUBLINGUAL ×3 (19:58→20:07)
[2019-06-01 20:19] LABS: Anion Gap 6 (5-15); BUN 9 mg/dL (7-18); BUN/Creat Ratio 11.8 RATIO (10-20); Chloride 107 mmol/L (98-107); Creatinine, Serum 0.76 mg/dL (0.55-1.02); EST Glomerular Filtration Rate 82 mL/min (>60); Est Glom Filt Rate - Afr Amer 99 mL/min (>60); Estimated Creatinine Clearance 78.42 ml/min; Glucose 166 mg/dL (74-106); Potassium 3.7 mmol/L (3.5-5.1); Sodium Level 143 mmol/L (136-145)
--- NOTE | 2019-06-01 20:47 | PCM.HP.STD ---
Problem List (1) Chest pain Status: Acute Qualifiers: Chest pain type: unspecified Qualified Code(s): R07.9 - Chest pain, unspecified (2) HTN (hypertension) Status: Chronic Qualifiers: Hypertension type: essential hypertension Qualified Code(s): I10 - Essential (primary) hypertension (3) HLD (hyperlipidemia) Status: Chronic Qualifiers: Hyperlipidemia type: unspecified Qualified Code(s): E78.5 - Hyperlipidemia, unspecified (4) H/O coronary artery bypass surgery Status: Chronic Comment: CABG x 2 CARTWRIGHT-LAD, SVG-OM 07/27/18 (5) Atherosclerosis of coronary artery of [place] heart without angina pectoris Status: Chronic Qualifiers: Coronary Disease-Associated Artery/Lesion type: unspecified vessel or lesion type Qualified Code(s): I25.10 - Atherosclerotic heart disease of [place] coronary artery without angina pectoris Comment: CABG x 2 CARTWRIGHT-LAD, SVG-OM 07/27/18 (6) Non-ST elevation WI (NSTEMI) Status: Resolved (7) Diabetes mellitus, type II Status: Chronic Qualifiers: Diabetes mellitus joint terminal attack controller insulin use: without joint terminal attack controller use Diabetes mellitus complication status: with other specified complication Qualified Code(s): E11.69 - Type 2 diabetes mellitus with other specified complication History of Present Illness Date of Admission: 06/01/19 Chief Complaint: Chest pain The patient is a 63 y/o F w/ PMHx: HTN, HLD, CAD s/p CABG, Hx NSTEMI, Diabetes mellitus type II who presents to the [facility] ED on 06/01/19 with history of intermittent left-sided chest aching without radiation described at its worse as 6 out of 10, currently upon evaluation 0 out of 10, ongoing x3 days noting to last minutes with resolution with no specific exacerbating or lessening factors with associated dyspnea as well as nausea without emesis which she states is similar to prior to her WI. She does state that she occasionally does get sharp aching discomfort at the site of her CABG incision but this has been since her surgery and unchanged. Patient notes resolution of the chest discomfort following NG administration. Work-up in the ED included T 98.8, heart rate 69, BP initially two /91, respiratory rate 18, 99% on room air--> BP following NG administration 122/73, CBC with WC 8.1, hemoglobin 12.5, platelet 180 without left shift, BMP with glucose 166, BNP 75, troponin less than 0.015, CXR w/ no acute cardiopulmonary findings, EKG w/ T wave inversion in lateral leads, unchanged from prior s/p CABG. In the ED patient ministered aspirin, nitroglycerin, Zofran therapy. Past Medical History Past Medical History (Chronic Problems): Chronic Problems (Last Reviewed 12/18/18 @ 10:02 by Tal Leone MD) HTN (hypertension) (Chronic) HLD (hyperlipidemia) (Chronic) Diabetes mellitus, type II (Chronic) H/O coronary artery bypass surgery (Chronic 07/27/18) CABG x 2 CARTWRIGHT-LAD, SVG-OM 07/27/18 Atherosclerosis of coronary artery of [place] heart without angina pectoris (Chronic) CABG x 2 CARTWRIGHT-LAD, SVG-OM 07/27/18 Medical History: Medical History (Last Reviewed 12/18/18 @ 10:02 by Tal Leone MD) Atherosclerosis of coronary artery of [place] heart without angina pectoris (Chronic) I25.10 CABG x 2 CARTWRIGHT-LAD, SVG-OM 07/27/18 Non-ST elevation WI (NSTEMI) (Resolved) I21.4 Type 2 diabetes mellitus E11.9 Allergies No Known Allergies Allergy (Verified 06/01/19 19:45) Home Medications: Ambulatory Orders Medication Instructions Recorded aspirin 81 mg tablet,delayed 81 mg PO DAILY 08/21/18 release lisinopril 2.5 mg tablet 2.5 mg PO DAILY #90 tab 08/21/18 metoprolol tartrate 25 mg tablet 25 mg PO BID 08/21/18 Atorvastatin Calcium [Lipitor] 80 mg PO QHS 06/01/19 Surgical History: Surgical History (Last Reviewed 12/18/18 @ 10:02 by Tal Leone MD) H/O coronary artery bypass surgery (Chronic) Onset Date: 07/27/18 Z95.1 CABG x 2 CARTWRIGHT-LAD, SVG-OM 07/27/18 History of left heart catheterization Onset Date: 07/23/18 Z98.890 Surgical History: cholecystectomy, hysterectomy, - - Neck surgery cervical fusion, CABG x 2 CARTWRIGHT-LAD, SVG-OM 07/27/18. 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 Denies: Fever HEENT: Denies: Head Aches, Sinus Congestion, Sinus Drainage Cardiovascular: Reports: Chest Pain. Denies: Chest Pressure, Chest Tightness, Heaviness, Light Headedness, Orthopnea, Palpitations, Syncope Respiratory: Reports: Shortness of Breath. Denies: Cough, Shortness of breath at rest, Shortness of breath upon exertion, Sputum production, Wheezing Gastrointestinal: Reports: Nausea. Denies: Abdominal Pain, Vomiting Genitourinary: Denies: Dysuria Musculoskeletal: Denies: Joint Pain, Joint Tenderness Skin: Denies: Rash, Wounds Neurological: Denies: Numbness, Tingling, Focal weakness Psychiatric: Denies: Anxiety, Depression, Homicidal Ideations, Suicidal Ideations Hematologic/ Lymphatic: Denies: Easy Bruising, Easy Bleeding VTE Information - Inpt Only VTE Present on Admission: No VTE Mechan Device Prophylaxis: SCD's VTE Pharm Prophylaxis ordered?: Yes Patient Problems: Active and Suspected Problems (Last Reviewed 12/18/18 @ 10:02 by Tal Leone MD) Chest pain (Acute) Subjective: Seated upright in ED bed, mildly fatigued appearance, notes chest discomfort has resolved. Objective: Physical Examination: General: awake, alert, oriented x 3 and cooperative, seated upright in the ED bed, fatigued appearance, notes currently chest discomfort is resolved. Skin: normal color, turgor, no icterus, cyanosis. HEENT: AT/NC, EOMI, PERRLA, mildly dry MM, no carotid bruits or JVD noted. Lungs: CTA bilaterally, moderate effort, mild decrease BL bases, no rales, ronchi or wheezing. Heart: Regular rate and rhythm; no gallop, rub audible, no reproducible discomfort with palpation, midline CABG incision well-healed. Abdomen: soft, NTTP, ND, normal BS, no HSM. Extremities: no cyanosis, clubbing, or edema. Neurological: patient awake, alert, oriented x 3; cognitive function intact; pupils equally reactive to light and accomodation; cranial nerves II-XII grossly normal, moving all 4 extremities, no focal deficits, strength mildly to moderately global decrease secondary to acute presentation. Psychiatric: affect appears fatigued, no acute evidence of depressive or anxiety feelings. - Physical Exam Vital Signs Temp Pulse Resp BP Pulse Ox 98.8 F 64 12 122/73 H 98 06/01/19 19:43 06/01/19 20:09 06/01/19 20:09 06/01/19 20:09 06/01/19 20:09 Oxygen Flow Rate (L/min) 2 Oxygen Delivery Method Nasal Cannula Weight: 159 lb 6.307 oz Body Mass Index (BMI) 24.2 Laboratory Tests Past 24 Hrs 06/01/19 06/01/19 06/01/19 19:45 19:45 19:45 WBC 8.1 RBC 4.66 Hgb 12.5 Hct 38.6 MCV 82.8 MCH 26.8 L MCHC 32.4 RDW Std Deviation 46.1 H RDW Coeff of Sharon 15.2 H Plt Count 180 MPV 10.7 Immature Gran % (Auto) 0.200 Neut % (Auto) 34.1 L Lymph % (Auto) 51.9 H [place] % (Auto) 8.3 Eos % (Auto) 5.3 H Baso % (Auto) 0.2 Absolute Neuts (auto) 2.8 Absolute Lymphs (auto) 4.21 Nucleated RBC % 0 Sodium 143 Potassium 3.7 Chloride 107 Carbon Dioxide 30.0 Anion Gap 6 BUN 9 Creatinine 0.76 Estim Creat Clear Calc 78.42 Est GFR (MDRD) Af Amer 99 Est GFR (MDRD) Non-Af 82 BUN/Creatinine Ratio 11.8 Glucose 166 H Calcium 9.0 Troponin I < 0.015 B-Natriuretic Peptide 75.0 Assessment/Plan All Active Problems (Last Reviewed 12/18/18 @ 10:02 by Tal Leone MD) Chest pain (Acute) Non-ST elevation WI (NSTEMI) (Resolved) The patient is a 63 y/o F w/ PMHx: HTN, HLD, CAD s/p CABG, Hx NSTEMI, Diabetes mellitus type II who presents to the [facility] ED on 06/01/19 with history of intermittent left-sided chest aching without radiation ongoing x 3 days. 1. Chest Pain: Work-up in the ED included T 98.8, heart rate 69, BP initially two , respiratory rate 18, 99% on room air--> BP following NG administration 122/73, CBC with WC 8.1, hemoglobin 12.5, platelet 180 without left shift, BMP with glucose 166, BNP 75, troponin less than 0.015, CXR w/ no acute cardiopulmonary findings, EKG w/ T wave inversion in lateral leads, unchanged from prior s/p CABG. Will admit to PCU, place on a monitored bed to assure no acute myocardial infarction with serial cardiac enzymes and EKGs. Patient is able to perform exercise and does not have LBBB or V-pacing but does have history of PCI/ST-T changes with unclear wall motion abnormality at rest thus will proceed with AM nuclear stress test. ASA, NG, morphine. FLP in AM. Mag pending. 2. Hypertensive Urgency: Upon presentation notably elevated blood pressure with chest pain complaint, improved notably with NG administration, normal lites, will continue lisinopril and metoprolol with further adjustments as needed, PRN hydralazine. 3. CAD: 07/2018 patient cardiac catheterization with triple-vessel disease involving the left main coronary artery with mild calcification, proximal left anterior descending artery with a 90% eccentric stenosis in the mid 80% mid stenosis, mid circumflex artery with a long 90% stenosis in the first obtuse marginal branch with a 90% stenosis and the right coronary artery had multiple 80% stenosis in the posterior descending artery w/ EF 45% with anterior hypokinesis now s/p CABG x 2 at [facility] CARTWRIGHT-LAD, SVG-OM 07/27/18. Will continue home regimen asa, statin, BB. 4. Hyperlipidemia: Continue home statin regimen. AM FLP. 5. Diabetes mellitus type II: Diet controlled, will obtain hemoglobin A1c level, and interim allow ADA diet until n.p.o. status, accu checks w/ ISS. 6. DVT Prophylaxis: SCDs, lovenox. Code Visit OBSV E&M: [id number] Initial observation care L3
--- NOTE | 2019-06-01 21:24 | EKG12_ITS ---
Test Reason : Blood Pressure : / mmHG Vent. Rate : 061 BPM Atrial Rate : 061 BPM P-R Int : 158 ms QRS Dur : 086 ms QT Int : 438 ms P-R-T Axes : 046 005 117 degrees QTc Int : 440 ms Normal sinus rhythm ST & T wave abnormality, consider lateral ischemia Abnormal ECG Confirmed by ANTONIA EVANS, YEIMY ([id number]), heel nailing machine operator WILY SALDANA ([id number]) on 06/08/2019 11:58:44 AM Referred By: Little Perkins Confirmed By:YEIMY KNIGHT MD
[2019-06-01 21:53] LABS: Magnesium 2.2 mg/dL (1.6-2.6)
[2019-06-01] MEDS: Famotidine 20 MG Tablet PO (22:10)
[2019-06-01] MEDS: 0.9% NaCl Peripheral Flush Adult/Peds IV (22:10)
[2019-06-01] MEDS: 0.9% Normal Saline 1,000 ML 100 ML IV (22:12)
[2019-06-01] MEDS: Glucerna Shake 120 ML LIQUID PO (22:14)
[2019-06-01 23:18] LABS: Hemoglobin A1c 7.1 % (4.2-6.3)
[2019-06-02] VITALS (20 sets, daily range): BP systolic 124–160; BP diastolic 49–76; PULSE 53–70; RESP 10–16; TEMP 36.4–36.6; O2SAT 98–100
[2019-06-02 00:46] LABS: Bedside Glucose 142 mg/dL (70-110)
[2019-06-02 02:45] LABS: Absolute Lymphocyte Count 3.24 X10^3/uL (0.83-4.51); Absolute Neutrophil Count 2.1 X10^3/uL (2.0-7.7); Basophil# 0.02 X10^3/uL; Basophil% 0.3 % (0-1); Eosinophils% 6.3 % (0-5); Hematocrit 36.2 % (37-47); Hemoglobin 11.6 g/dL (12.0-15.0); Lymphocyte # 3.24 X10^3/ul (4.0); Lymphocyte % 51.4 % (19-41); Mean Corpuscular Hgb 26.5 pg (27.0-32.0); Mean Corpuscular Volume 82.6 fL (81-99); Mean Platelet Vol. 11.3 fl (6.2-12.0); Monocyte# 0.56 X10^3/uL; Monocyte% 8.9 % (0-10); NRBC Flagged by Analyzer 0 % (0-5); Neutrophil # 2.07 X10^3/uL (2.7-7.7); Neutrophil % 32.9 % (47-70); Platelet Count 167 K/mm3 (150-450); RBC Distribution Width CV 15.1 % (11.6-14.6); RBC Distribution Width SD 45.8 fl (35.1-43.9); Red Blood Count 4.38 M/mm3 (4.2-5.4); White Blood Count 6.3 K/mm3 (4.4-11.0)
[2019-06-02 03:02] LABS: Anion Gap 7 (5-15); BUN 9 mg/dL (7-18); BUN/Creat Ratio 13.5 RATIO (10-20); Calcium,Total 8.4 mg/dL (8.5-10.1); Chloride 113 mmol/L (98-107); Cholesterol 112 mg/dL (200); Creatinine, Serum 0.67 mg/dL (0.55-1.02); EST Glomerular Filtration Rate 95 mL/min (>60); Est Glom Filt Rate - Afr Amer 115 mL/min (>60); Estimated Creatinine Clearance 72.94 ml/min; Glucose 116 mg/dL (74-106); High Density Lipoprotein 59 mg/dL; Potassium 3.9 mmol/L (3.5-5.1); Sodium Level 146 mmol/L (136-145); Triglycerides 86 mg/dL; Very Low Density Lipoprotein 17 mg/dL (5-40)
[2019-06-02] MEDS: Lisinopril 2.5 MG Tablet PO (05:31)
[2019-06-02] MEDS: Aspirin E.C. 81 MG Tablet PO (05:31)
--- NOTE | 2019-06-02 05:55 | EKG12_ITS ---
Test Reason : Blood Pressure : / mmHG Vent. Rate : 052 BPM Atrial Rate : 052 BPM P-R Int : 160 ms QRS Dur : 082 ms QT Int : 442 ms P-R-T Axes : 064 003 119 degrees QTc Int : 411 ms Sinus bradycardia Possible Left atrial enlargement ST & T wave abnormality, consider lateral ischemia Abnormal ECG Confirmed by ANTONIA EVANS, YEIMY ([id number]), health editor WILY SALDANA ([id number]) on 06/08/2019 12:02:06 PM Referred By: Little Perkins Confirmed By:YEIMY KNIGHT MD
[2019-06-02 07:05] LABS: Bedside Glucose 123 mg/dL (70-110)
--- NOTE | 2019-06-02 08:10 | STRESSREP ---
Stress Test Report Exercise myocardial perfusion stress test. 63-year-old lady with a history of coronary artery disease status post coronary bypass surgery who presents with intermittent left chest pain. Stress protocol: Resting EKG demonstrates sinus bradycardia with a rate of 57 bpm normal intervals are noted resting blood pressures 148/72 mmHg. The patient exercised according to regular Gee protocol for total duration of 8 minutes and 20 seconds patient completed 2 minutes and 20 seconds to stage III of the Gee protocol the maximum heart rate was 146 bpm which was 91% of maximum predicted heart rate the maximum workload was 10.1 metabolic equivalents. The patient maintained sinus rhythm throughout the recording. At rest nonspecific ST-T wave changes were noted with no meet the criteria for ischemia at peak exercise there was approximately 0.9 to 1 mm of horizontal to mildly upsloping ST depression noted in the inferolateral leads. No chest pain was noted. The above was suggestive but not diagnostic of ischemia. Test was terminated due to shortness of breath. The resting blood pressures 148/72 with a peak blood pressure 180/80 mmHg. Myocardial perfusion protocol. 11.7 mCi of technetium 99m sestamibi was injected at rest. The patient exercised according to regular Gee protocol for 8 minutes and 20 seconds at peak exercise 33.3 mCi of technetium 99m sestamibi was injected stress images were obtained stress and rest images were reconstructed and compared in the short axis vertical long horizontal long axis. Gated images were also obtained per Perfusion SPECT analysis: Review of the stress images demonstrate a normal cardiac silhouette size. There is a large defect noted involving the mid anterior wall extending close to the apex and the anterolateral wall. The septum and inferior wall appeared to be normally perfused. The resting images demonstrate a moderate amount of improvement in this area named above suggestive of anterolateral ischemia. Gated SPECT analysis: The gated ejection fraction is noted to be 57%. Conclusion: Abnormal exercise myocardial perfusion stress test at a moderate workload with evidence of anterolateral ischemia. Preserved ejection fraction.
[2019-06-02] MEDS: Famotidine 20 MG Tablet PO ×2 (09:10→21:25)
[2019-06-02] MEDS: TICAGRELOR 90 MG TABLET 180 MG PO (09:10)
[2019-06-02] MEDS: Metoprolol Tartrate 25 MG Tablet PO (09:10)
[2019-06-02] MEDS: 0.9% Normal Saline 1,000 ML 100 ML IV (09:13)
[2019-06-02 11:36] LABS: Bedside Glucose 134 mg/dL (70-110)
--- NOTE | 2019-06-02 11:45 | NURSING ---
Called report to Micheal BLOCK in dental laboratory technician
--- NOTE | 2019-06-02 12:54 | NURSING ---
Called report to Delia BLOCK in ICU
--- NOTE | 2019-06-02 12:55 | CHAPLAIN ---
Type of Pastoral Visit _x__ Initial Visit ___ Follow-up Visit ___ On-call Visit ___ General Patient Visit ___ Spiritual Assessment ___ Family Conference ___ Bereavement ___ Rapid Response ___ Code Blue ___ Other (describe below) Pastoral Care Referral From _x__ Patient ___ Family ___ Nurse ___ Physician ___ Business Administration Instructor ___ Street Railway Line Installer ___ Other (describe below) Sacrament/Intervention _x__ Active listening ___ Anointing ___ Anglican ___ Bereavement ___ Communion ___ Haily exploration ___ _x__ Life review _x__ Prayer ___ Reconciliation ___ Sacrament of Sick _x__ Supportive presence ___ Wedding ___ Other (describe below) Pastoral Comments
[2019-06-02 13:46] LABS: ACT Activated Clotting Time 208 sec (74-137)
--- NOTE | 2019-06-02 13:55 | CL.I_ITS ---
Patient Name: LAURA MATTHEWS Study Date: 06/02/2019 Performing: Salvador Saeed MD Ht: 62.99 inches 160 cm : 1955 Wt: 156.53 lbs 71 kg Age: 63 Gender: female BSA: 1.74 PROCEDURE(S) PERFORMED [id number] W OR WO PTCA, SINGLE CORONARY ARTERY [id number], EACH ADD'L CORONARY ART, SAME MAJOR [id number]/COR/LV/CABG CLINICAL PROFILE AND CO-MORBIDITIES Indications: New Onset Angina <= 2 months, Stable Known CAD Heart Failure: NYHA Class: 2, Newly Diagnosed: No, Heart Failure Type: Systolic Stress/Imaging Date: 06/02/2019 Stress Test with SPECT MPI: Positive Intermediate Risk Angina Classification Anginal Classification w/in 2 Weeks: CCS II CAD Presentations: Unstable angina. 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 Successful PTCA/KALEIGH proximal LCX with a 2.5 x 16 Promus Synegy, post dilated with a 2.5 x 8 NC Balloo n; 75%-->0%, no dissection. Successful PCI with PTCA to the proximal OM#1 with a 1.25 and 1.5 mm balloon; unable to pass new, def lated balloon into mid OM; 85%-->55%, no dissection. No additional stenting attempted on OM#1 due to small size, calcification and difficulty passing 1.25 mm balloon. RECOMMENDATIONS Referred for immediate PCI Staged percutaneous intervention of CARTWRIGHT TO LAD vs Medical Therapy Highly recommend quitting all tobacco products Follow up with primary ballistics professor Risk factor modification ASA Indefinitley Plavix for at least 12 months Routine post interventional care Refer for Outpatient Cardiac Rehab Manual sheath removal per protocol Follow up with Dr. Leone Consider elective PCI of CARTWRIGHT to LAD via CARTWRIGHT (may need 90cm sheath) if pt continues to have symptoms despite maximal medical tx. Succssful Mynx Control closure of RFA. D/w Dr Leone. DESCRIPTION OF PROCEDURE The patient arrived to the procedure lab. The risks and benefits of the procedure as well as a full d escription of our services here and lack of surgical backup were fully explained to the patient and/o r their significant other prior to the catheterization. The Timeout was completed, verifying the jesus ect patient and procedure. The patient's procedural site was prepped and draped in the usual fashion. Local anesthetic was given subcutaneously to right groin region with Lidocaine 2%. Using a modified Seldinger technique, arterial access was obtained via the right femoral artery, a 4Fr sheath was inse rted. Left Coronary Artery selective angiography was performed in multiple views using a 4 Fr. JL5 c atheter. Right Coronary Artery selective angiography was then performed in multiple views using a 4 F r. 3DRC catheter. Saphenous Vein graft to the unknown artery (occluded graft) selective angiography w as performed in single view using a 4 Fr. 3DRC catheter. Left internal mammary artery graft to the LAD selective angiography was performed in multiple views using a 4 Fr. 3DRC catheter. L eft Ventriculography was performed in REYES projection using a 4 Fr. Pigtail catheter. LV to AO pullbac k pressures were then recordedThe images were reviewed and options discussed. A decision was then mad e to proceed with an Intervention, IVUS or other adjunct procedure. Arterial sheath was exchanged for a 6 Fr x 45cm Sheath. EBU 3.5 Guide catheter was inserted and e ngaged into the LCA. BMW Guide wire was advanced to the 1st OM. BMW (2) Guide wire was advanced to th e Circumflex. 1.5 x 15 Emerge Balloon catheter was advanced across lesion in the circumflex, distal. PTCA balloon inflated at 8 atms for 25 secs. PTCA balloon inflated at 6 atms for 10 secs. PTCA balloo n inflated at 8 atms for 14 secs. Angiogram performed post balloon dilatation. synergy 2.25 x 16 Drug Eluting stent was advanced across the lesion in the circumflex, distal. Angiogram performed post isak nt deployment. emerge push 1.2 x 8 Balloon catheter was advanced across lesion in the first obtuse ma rginal, mid. PTCA balloon inflated at 6 atms for 8 secs. synergy 2.5 x 16 Drug Eluting stent was adva nced across the lesion in the circumflex, proximal. nc emerge 2.5 x 8 Balloon catheter was inserted p ost stent on circ wire 2nd bmw Guide wire was repositioned to the 1st OM euphora 1.5 x 12 Balloon catheter was advanced across lesion in the first obtuse marginal, mid. PTCA balloon inflated at 8 atms for 8 secs. Angiogram performed post balloon dilatation. Arterial sheath was exchanged for a short 6 Fr Sheath. Contrast was injected through the sheath and the Right Iliac and Femoral artery were assessed for possible closure device. The arterial sheath was pulled and a Mynx closure device was deployed for hemostasis CORONARY ANGIOGRAPHY DOMINANCE: Right Dominant LEFT HEART ASSESSMENT Left Ventricular Ejection Fraction: by LV Gram 45 % Depressed Left Ventricular systolic function LVEDP: 23 mmHg Elevated Left Ventricular End Diastolic Pressure Anterior Hypokinesis - Moderate LEFT MAIN: Mild luminal irregularities less than 30% LEFT ANTERIOR DESCENDING ARTERY: PROX LAD: 85 % Stenosis MID LAD: 85 % Stenosis CIRCUMFLEX ARTERY: PROX CIRC: 75 % Stenosis DISTAL CIRC: 85 % Stenosis OM 1: Proximal - 85 % Stenosis RIGHT CORONARY ARTERY: MID RCA: Moderate luminal irregularities up to 50% GRAFTS: CARTWRIGHT graft to the LAD is widely patent until distal anasamotic site with a 70% stenosis. Saphenous Vein graft to the 1st OM is totally occluded INTERVENTION INFORMATION LESION SITE: Circumflex (Distal) Lesion Complexity: Non-High/Non-C, lesion at bifurcation: No, thrombus present: No, culprit lesion: N o Pre Stenosis: 85 % Pre intervention GAYATRI flow: 3 PROCEDURE: Drug Eluting Stent with pre dilatation. Post Stenosis: 0 % Post intervention GAYATRI flow: 3 Lesion Devices: Medtronic 6 Fr EBU3.5 100cm Guide Catheter Hernandez .014 BMW [place] Straight 190cm Hernandez .014 BMW [place] Straight 190cm Lalito Sci EMERGE MR 2.00x12 BALLOON Lalito Sci EMERGE MR 1.50x15 BALLOON Lalito Sci Synergy MR KALEIGH 2.25x16 LESION SITE: 1st OM (Mid) Lesion Complexity: High/C, lesion at bifurcation: No, lesion length: 20 mm, culprit lesion: Yes Pre Stenosis: 85 % Pre intervention GAYATRI flow: 3 PROCEDURE: Balloon Angioplasty Post Stenosis: 55 % Post intervention GAYATRI flow: 3 Lesion Devices: Medtronic SC EUPHORA RX 1.5x12 BALLOON Lalito Sci EMERGE PUSH MR 1.20x08 BALLOON LESION SITE: Circumflex (Proximal) Lesion Complexity: Non-High/Non-C, lesion at bifurcation: No, thrombus present: No, lesion length: 16 mm, culprit lesion: No Pre Stenosis: 75 % Pre intervention GAYATRI flow: 3 PROCEDURE: Drug Eluting Stent with pre and post dilatation 0 % Post intervention GAYATRI flow: 3 Lesion Devices: Lalito Sci Synergy MR KALEIGH 2.50x16 Lalito Sci NC EMERGE MR 2.50x08 BALLOON COMPLICATIONS No Complications PROCEDURE MEDICATIONS Oxygen: 2 L/min via nasal cannula Heparin 6000 unit(s) IV 06/02/2019 12:35:05 Nitro 200 mcg IC 06/02/2019 12:36:43 Nitro 200 mcg IC 06/02/2019 12:36:43 Nitro 200 mcg IC 06/02/2019 12:47:48 IV Fluids: .9 NaCl increased to WO ml/hr 06/02/2019 12:35:16 SUMMARY OF HEMODYNAMIC DATA Time AIR REST ECG 11:56:31 AO 167/72 (109) SA 12:10:34 LV 173/-13, 23 12:21:37 LV 167/-14, 21 12:21:42 LVp 172/-17, 19 12:21:51 AOp 169/69 (109) 12:21:56 Signed By Salvador Saeed MD On 06/02/2019 13:55:22 Salvador Saeed MD
[2019-06-02] MEDS: 0.9% Normal Saline 1,000 ML 150 ML IV (14:49)
[2019-06-02 17:11] LABS: Bedside Glucose 88 mg/dL (70-110)
--- NOTE | 2019-06-02 19:05 | PCM.PROGNOTE ---
Subjective: Patient was seen and examined in the ICU today, she underwent a cardiac catheterization after having an abnormal stress test. She underwent coronary artery stent placement in her circumflex coronary artery in 2 areas. She also had an ostial stenosis at the site of her previous coronary artery bypass surgery that could not be stented but she underwent a balloon angioplasty which was successful. At this time, patient has no complaints of any chest pain or shortness of breath. - Physical Exam General: Alert, Oriented x3, Cooperative, No apparent distress, Well developed, Well nourished HEENT: Atraumatic, PERRLA, EOMI, Normocephalic Oral: Moist Mucosa Neck: Supple, No JVD, Trachea Midline, Thyroid Normal Size and Texture Lungs: Clear to auscultation, Normal air movement, No rhonchi, No wheeze, No rales Cardiovascular: Regular rate, Regular Rhythm, Normal S1, Normal S2, No murmurs, PMI Normal, No rub noted, No Gallop Abdomen: Bowel Sounds Present, Soft, Non Tender, Non-Distended Skin: No rashes, No breakdown Neurological: Cranial nerves II-XII grossly intact, Neuro grossly intact, Sensory exam intact to light touch and pain, Coordination normal Psych/Mental Status: Normal Affect, Appropriate, Alert and oriented to time, place, person, mood and affect Vital Signs Temp Pulse Resp BP Pulse Ox 97.7 F L 70 13 149/66 H 100 06/02/19 16:00 06/02/19 18:00 06/02/19 18:00 06/02/19 18:00 06/02/19 18:00 Oxygen Flow Rate (L/min) 2 Oxygen Delivery Method Room Air Weight: 71.4 kg Body Mass Index (BMI) 27.8 Intake and Output for Last 24 Hours 05/31/19 06/01/19 06/02/19 23:59 23:59 23:59 Intake Total 100 / 100 1470.01 / 1470.01 Output Total 850 / 850 Balance 100 / 100 620.01 / 620.01 Laboratory Tests Past 24 Hrs 06/01/19 06/01/19 06/01/19 19:45 19:45 19:45 WBC 8.1 RBC 4.66 Hgb 12.5 Hct 38.6 MCV 82.8 MCH 26.8 L MCHC 32.4 RDW Std Deviation 46.1 H RDW Coeff of Sharno 15.2 H Plt Count 180 MPV 10.7 Immature Gran % (Auto) 0.200 Neut % (Auto) 34.1 L Lymph % (Auto) 51.9 H [place] % (Auto) 8.3 Eos % (Auto) 5.3 H Baso % (Auto) 0.2 Absolute Neuts (auto) 2.8 Absolute Lymphs (auto) 4.21 Nucleated RBC % 0 Activated Clotting Time Sodium 143 Potassium 3.7 Chloride 107 Carbon Dioxide 30.0 Anion Gap 6 BUN 9 Creatinine 0.76 Estim Creat Clear Calc 78.42 Est GFR (MDRD) Af Amer 99 Est GFR (MDRD) Non-Af 82 BUN/Creatinine Ratio 11.8 Glucose 166 H Hemoglobin A1c Calcium 9.0 Magnesium Troponin I < 0.015 B-Natriuretic Peptide 75.0 Triglycerides Cholesterol LDL Cholesterol VLDL Cholesterol HDL Cholesterol 06/01/19 06/01/19 06/01/19 19:45 22:52 22:52 WBC RBC Hgb Hct MCV MCH MCHC RDW Std Deviation RDW Coeff of Sharon Plt Count MPV Immature Gran % (Auto) Neut % (Auto) Lymph % (Auto) [place] % (Auto) Eos % (Auto) Baso % (Auto) Absolute Neuts (auto) Absolute Lymphs (auto) Nucleated RBC % Activated Clotting Time Sodium Potassium Chloride Carbon Dioxide Anion Gap BUN Creatinine Estim Creat Clear Calc Est GFR (MDRD) Af Amer Est GFR (MDRD) Non-Af BUN/Creatinine Ratio Glucose Hemoglobin A1c 7.1 H Calcium Magnesium 2.2 Troponin I < 0.015 B-Natriuretic Peptide Triglycerides Cholesterol LDL Cholesterol VLDL Cholesterol HDL Cholesterol 06/02/19 06/02/19 06/02/19 02:20 02:20 02:20 WBC 6.3 RBC 4.38 Hgb 11.6 L Hct 36.2 L MCV 82.6 MCH 26.5 L MCHC 32.0 RDW Std Deviation 45.8 H RDW Coeff of Sharon 15.1 H Plt Count 167 MPV 11.3 Immature Gran % (Auto) 0.200 Neut % (Auto) 32.9 L Lymph % (Auto) 51.4 H [place] % (Auto) 8.9 Eos % (Auto) 6.3 H Baso % (Auto) 0.3 Absolute Neuts (auto) 2.1 Absolute Lymphs (auto) 3.24 Nucleated RBC % 0 Activated Clotting Time Sodium 146 H Potassium 3.9 Chloride 113 H Carbon Dioxide 26.0 Anion Gap 7 BUN 9 Creatinine 0.67 Estim Creat Clear Calc 72.94 Est GFR (MDRD) Af Amer 115 Est GFR (MDRD) Non-Af 95 BUN/Creatinine Ratio 13.5 Glucose 116 H Hemoglobin A1c Calcium 8.4 L Magnesium Troponin I < 0.015 B-Natriuretic Peptide Triglycerides 86 Cholesterol 112 LDL Cholesterol 36 VLDL Cholesterol 17 HDL Cholesterol 59 06/02/19 13:20 WBC RBC Hgb Hct MCV MCH MCHC RDW Std Deviation RDW Coeff of Sharon Plt Count MPV Immature Gran % (Auto) Neut % (Auto) Lymph % (Auto) [place] % (Auto) Eos % (Auto) Baso % (Auto) Absolute Neuts (auto) Absolute Lymphs (auto) Nucleated RBC % Activated Clotting Time 208 H Sodium Potassium Chloride Carbon Dioxide Anion Gap BUN Creatinine Estim Creat Clear Calc Est GFR (MDRD) Af Amer Est GFR (MDRD) Non-Af BUN/Creatinine Ratio Glucose Hemoglobin A1c Calcium Magnesium Troponin I B-Natriuretic Peptide Triglycerides Cholesterol LDL Cholesterol VLDL Cholesterol HDL Cholesterol POC Glucose 06/02/19 06/02/19 06/02/19 17:03 11:33 06:22 POC Glucose 88 134 H 123 H 06/01/19 22:05 POC Glucose 142 H Medical Necessity - Tobacco Use Smoking Status: Never smoker Tobacco Use: Non-smoker Assessment/Plan All Active Problems (Last Updated 06/02/19 @ 17:40 by Rosa Callahan) History of coronary artery stent placement (Resolved 06/02/19) Non-ST elevation PR (NSTEMI) (Resolved) Chest pain (Resolved) #1 occlusive coronary artery disease in the circumflex coronary artery and obtuse marginal branch-with presentation to the hospital with angina pectoris-patient will continue to be monitored and ICU, cardiology has adjusted her medications. Postop day #1 successful PTCA to obtuse marginal #1 and insertion of 2 stents and circumflex coronary artery, tinea medications as recommended by cardiology #2 type 2 diabetes-under poor control-patient's hemoglobin A1c was 7.1, monitor blood sugars and administer insulin as needed #3 essential hypertension-continue present medications #4 hyperlipidemia-continue statin Code Visit OBSV E&M: 57968 Subsequent observation care L3
[2019-06-02] MEDS: 0.9% Normal Saline 1,000 ML 75 ML IV (21:20)
[2019-06-02] MEDS: TICAGRELOR 90 MG TABLET PO (21:23)
[2019-06-02] MEDS: Atorvastatin Calcium 80 MG Tablet PO (21:24)
[2019-06-02] MEDS: Carvedilol 3.125 MG TABLET PO (21:24)
[2019-06-02 21:31] LABS: Bedside Glucose 108 mg/dL (70-110)
[2019-06-02] MEDS: Glucerna Shake 120 ML LIQUID PO (21:34)
[2019-06-03] VITALS (12 sets, daily range): BP systolic 119–143; BP diastolic 57–81; PULSE 59–90; RESP 13–26; TEMP 36.4–36.8; O2SAT 96–100; BMI 27.8
[2019-06-03 01:16] LABS: Bedside Glucose 98 mg/dL (70-110)
[2019-06-03 04:43] LABS: Hematocrit 35.5 % (37-47); Hemoglobin 11.5 g/dL (12.0-15.0); Mean Corp Hgb Conc 32.4 g/dL (32-36); Mean Corpuscular Hgb 26.9 pg (27.0-32.0); Mean Corpuscular Volume 82.9 fL (81-99); Mean Platelet Vol. 11.3 fl (6.2-12.0); Platelet Count 167 K/mm3 (150-450); RBC Distribution Width CV 15.6 % (11.6-14.6); RBC Distribution Width SD 47.2 fl (35.1-43.9); Red Blood Count 4.28 M/mm3 (4.2-5.4); White Blood Count 8.8 K/mm3 (4.4-11.0)
[2019-06-03 04:58] LABS: ALB/GLOB Ratio 1.1 RATIO (0.9-2.4); AST(SGOT) 22 U/L (15-37); Alanine Aminotransfer ALT/SGPT 21 U/L (13-56); Albumin, Serum 3.2 g/dL (3.2-5.0); Alkaline Phosphatase 64 U/L (45-117); Anion Gap 8 (5-15); BUN 8 mg/dL (7-18); Calcium,Total 8.4 mg/dL (8.5-10.1); Chloride 113 mmol/L (98-107); Creatinine, Serum 0.66 mg/dL (0.55-1.02); EST Glomerular Filtration Rate 96 mL/min (>60); Est Glom Filt Rate - Afr Amer 116 mL/min (>60); Estimated Creatinine Clearance 74.05 ml/min; Globulin 2.8 g/dL (2.2-4.2); Glucose 110 mg/dL (74-106); Sodium Level 147 mmol/L (136-145)
--- NOTE | 2019-06-03 08:19 | PN_ITS ---
Subjective: Ms Ocampo is a 63 yo female who came to the hospital with CP. Cardiac cath was done 06/02/19 and she was noted to have 2 vessel CAD of the LAD and LCX. A KALEIGH was placed in the distal and proximal LCX. This am pt states that she is feeling well and is not having any CP or SOB even with mild exertion. No issues with cath site. Vitals/I&O's: Vital Signs Temp Pulse Resp BP Pulse Ox 97.8 F 77 16 132/65 H 100 06/03/19 04:00 06/03/19 07:49 06/03/19 07:49 06/03/19 07:49 06/03/19 07:49 Oxygen Flow Rate (L/min) 2 Oxygen Delivery Method Room Air Weight: 72.6 kg Body Mass Index (BMI) 27.8 Intake and Output for Last 24 Hours 06/01/19 06/02/19 06/03/19 23:59 23:59 23:59 Intake Total 100 / 100 3115.01 / 3115.01 120 / 120 Output Total 850 / 850 Balance 100 / 100 2265.01 / 2265.01 120 / 120 General: Alert, Oriented x3, Cooperative, No apparent distress, Well developed, Well nourished, - - sitting up in chair eating breakfast HEENT: Atraumatic, EOMI, Normocephalic, EAC Clear Oral: Moist Mucosa, No Gingival or Mucosal Lesions/ Ulcerations, - - fair dentition, mallampati 2 Neck: Supple, No JVD, Negative Carotid Bruits, Negative Hepatojugular Reflux, No Nodes, No Nuchal Rigidity, Trachea Midline, Thyroid Normal Size and Texture Lungs: Clear to auscultation, Normal air movement, No rhonchi, No wheeze, No rales Cardiovascular: Regular rate, Regular Rhythm, Normal S1, Normal S2, No murmurs, No Ectopic Activity, No rub noted, No Gallop Abdomen: Bowel Sounds Present, Soft, Non Tender, Non-Distended, No Hepato- splenomegaly, No hernias noted Extremities: No clubbing, No cyanosis, Edema - trace B hands, Peripheral Pulses Normal Skin: No rashes, No breakdown, - - cath site R groin-bandage in place, no significant tenderness, no bruit, no hematoma Musculoskeletal: No Tenderness to Palpation of Joints or Extremities, No Muscle Wasting Lymphatic: - - no cervical or supraclavicular LAD Neurological: Cranial nerves II-XII grossly intact, Neuro grossly intact, Motor Exam 5/5 strength throughout, Muscle tone normal, Coordination normal Psych/Mental Status: Normal Affect, Appropriate, Alert and oriented to time, place, person, mood and affect Laboratory Results 06/02/19 11:33: POC Glucose 134 H 06/02/19 13:20: Activated Clotting Time 208 H 06/02/19 17:03: POC Glucose 88 06/02/19 21:18: POC Glucose 108 06/03/19 01:12: POC Glucose 98 06/03/19 04:28: WBC 8.8, RBC 4.28, Hgb 11.5 L, Hct 35.5 L, MCV 82.9, MCH 26.9 L, MCHC 32.4, RDW Std Deviation 47.2 H, RDW Coeff of Sharon 15.6 H, Plt Count 167, MPV 11.3 06/03/19 04:28: Sodium 147 H, Potassium 4.0, Chloride 113 H, Carbon Dioxide 26.0, Anion Gap 8, BUN 8, Creatinine 0.66, Estim Creat Clear Calc 74.05, Est GFR (MDRD) Af Amer 116, Est GFR (MDRD) Non-Af 96, BUN/Creatinine Ratio 12.0, Glucose 110 H, Calcium 8.4 L, Total Bilirubin 0.60, AST 22, ALT 21, Alkaline Phosphatase 64, Total Protein 6.0 L, Albumin 3.2, Globulin 2.8, Albumin/Globulin Ratio 1.1 Current Medications Acetaminophen (Tylenol) 650 mg PO Q6H PRN PRN PRN Reason: Non-cardiac pain (mod-severe) Hydrocodone Bitart/Acetaminophen ([place] 5mg-325mg) 1 - 2 tablet PO Q6H PRN PRN PRN Reason: MOD-SEVERE PAIN (4-10/10) Al Hydroxide/Mg Hydroxide (Mylanta Ii) 15 - 30 ml PO Q4H PRN PRN PRN Reason: INDIGESTION Albuterol Sulfate (Ventolin Aerosols) 2.5 mg INHALATION Q2H PRN PRN PRN Reason: dyspnea, wheezing Aspirin (Ecotrin) 81 mg PO DAILYCM [facility] Last Admin: 06/02/19 05:31 Dose: 81 mg Documented by: Atorvastatin Calcium (Lipitor) 80 mg PO QHS [facility] Last Admin: 06/02/19 21:24 Dose: 80 mg Documented by: Atropine Sulfate () 0.5 mg IV UD PRN PRN Reason: HR <50 bpm Carvedilol (Coreg) 3.125 mg PO BID [facility] Last Admin: 06/02/19 21:24 Dose: 3.125 mg Documented by: Dextrose (D50w Syringe) 0 gm IV X1 PRN; Protocol PRN Reason: Hypoglycemia Diazepam (Valium) 5 mg PO Q6H PRN PRN PRN Reason: BACK SPASMS/ANXIETY Famotidine (Pepcid) 20 mg PO BID [facility] Last Admin: 06/02/19 21:25 Dose: 20 mg Documented by: Glucagon () 1 mg IM .X1 PRN PRN Reason: Hypoglycemia Heparin Sodium (Beef Lung) (Heparin 500 Unit/5 Ml (100/Ml)) 500 unit IV UD PRN PRN Reason: HEPARIN FLUSH Hydralazine HCl (Apresoline Iv) 10 mg IV Q4H PRN PRN PRN Reason: SBP > 160 Hydrochlorothiazide () 12.5 mg PO DAILY [facility] Sodium Chloride () 1,000 mls @ 75 mls/hr IV .[id number] [facility] Last Infusion: 06/02/19 23:48 Dose: 75 mls/hr Documented by: Sodium Chloride () 1,000 mls @ 0 mls/hr IV .Q0M [facility] Insulin Human Lispro (Humalog Kwikpen (Bkc)) 0 unit SC ACHS [facility]; Protocol Last Admin: 06/03/19 07:38 Dose: Not Given Documented by: Labetalol HCl (Trandate) 5 mg IV X1 PRN PRN Reason: SBP > 160 when pulling sheath Losartan Potassium (Cozaar) 50 mg PO DAILY [facility] Magnesium Hydroxide (Milk Of Magnesia) 30 ml PO DAILY PRN PRN Reason: Constipation Melatonin (Melatonin) 3 mg PO QHS PRN PRN PRN Reason: INSOMNIA Morphine Sulfate () 1 - 2 mg IV Q4H PRN PRN PRN Reason: PAIN Nitroglycerin (Nitrostat) 0.4 mg SUBLINGUAL Q5M PRN PRN Reason: CARDIAC/CHEST PAIN Nutritional Formula (Lactose Free) (Glucerna Shake) 120 ml PO 4X/DAY [facility] Last Admin: 06/02/19 21:34 Dose: 120 ml Documented by: Ondansetron HCl (Zofran) 4 mg IV Q8H PRN PRN PRN Reason: NAUSEA/VOMITING Sodium Chloride () 10 - 40 ml IV UD PRN PRN Reason: SALINE FLUSH Last Admin: 06/01/19 22:10 Dose: 10 ml Documented by: Sodium Chloride () 500 ml IV BOLUS PRN PRN Reason: VASO-VAGAL PROTOCOL Ticagrelor (Brilinta) 90 mg PO BID [facility] Last Admin: 06/02/19 21:23 Dose: 90 mg Documented by: Medical Necessity - Tobacco Use Smoking Status: Never smoker Tobacco Use: Non-smoker Assessment/Plan All Active Problems (Last Updated 06/02/19 @ 17:40 by Rosa Callahan) History of coronary artery stent placement (Resolved 06/02/19) Non-ST elevation SC (NSTEMI) (Resolved) Chest pain (Resolved) Angina with PCI with KALEIGH to Prox/Distal LCX 06/02/19 -Cardiology following (Dr. Saeed) -continue ASA/Statin/Coreg/Losartan/Brilinta -pain is resolved -cath site looks good -ok to d/c today per cardiology Hypernatremia/Hyperchloremia -suspect iatrogenic -d/c IVF--> pt is eating and drinking well DM-2 uncontrolled -Control is fairly good with A1c of 7.1 -pt states that her A1c was 6.5 when last checked by her PCP about 2 mos ago--> would like to hold off meds for now and try to get it back down with diet alone as she has in the past -on no medications at home -hold on starting meds as pt would like to try diet control as this has worked in the past -will need f/u A1c in 3 mos CAD/HPL/HTN -continue Coreg--> may need to up titrate as BP is still a bit higher than i would like to see it -if not improved by f/u would consider increasing -continue statin -continue HCTZ--> there is room for up titration here too -last stents were placed 07/27/18 -needs aggressive control of risk factors Plan: -D/C today -has appt with Dr. Leone in 1 month
--- NOTE | 2019-06-03 08:37 | CRPHASE1 ---
Patient Communication Former Patient:: Phase I, Phase II PHII Cardiac Rehab Discussed with Patient:: Yes Guide to Cardiac Rehab Given to Patient:: Yes Cardiac Rehab Facility Choice List Given to Patient:: Yes - [facility] Choice Program [facility] PHII:: Communication Given to CR - [facility] Transportation Maintenance Operator:: Salvador Saeed PCP:: Emmett Lopez Phase II Cardiac Rehab:: Yes Sessions:: 36 sessions - 3 days/wk, 12 weeks Phase I Charge:: Level I - Education Risk Factors/Lifestyle Smoking Status: Never smoker Hx Hypertension: Yes Hx Diabetes Mellitus Type 2: Yes Hx Dyslipidemia: Yes Hx Obesity: Yes Height: 5 ft 3 in Weight:: 157 lb BMI: 27.8 Post-Menopausal: Yes Stress: Recent, Home/Family ETOH: No Risk Factor for Sedentary Lifestyle: Lowest Risk Family History: Family History (Last Reviewed 12/18/18 @ 10:02 by Tal Leone MD) Aunt Diabetes Uncle Diabetes Family History: Diabetes Past Cardiac Illness: Coronary Artery Disease, Coronary Artery Bypass Graft Laboratory Values: Cardiac Rehab Phase I Labs 7.1 % (4.2-6.3) H 06/01/19 22:52 Triglycerides 86 mg/dL (-199) 06/02/19 02:20 Cholesterol 112 mg/dL (200) 06/02/19 02:20 36 mg/dL (0-130) 06/02/19 02:20 59 mg/dL (40-) 06/02/19 02:20 Phase I Education Given On:: [employer], Nutrition, Antiplatelet medication, CHF, Diabetes - Type II Issues Affecting Care:: None Knowledge of Condition:: Yes Learning Preferences: Verbal, Written, Audio/Visual, Demonstration Medical/Surgical History [place]:: Yes - NSTEMI Angina:: Yes CAD:: Yes Diabetes Type II:: Yes Hypertension:: Yes Dyslipidemia:: Yes CABG: Yes Discharge/Home/Social Eval Marital Status: Cardiac Rehabilitation Info Cardiac Rehabilitation Program Information: Cardiac Rehabilitation is important for patients like you who are recovering from a heart problem. Cardiac rehabilitation programs are recognized as integral to the continued care of the patient with coronary heart disease. The cardiac rehabilitation program is designed to optimize a patient's physical, psychological, and social functioning. Health healthcare project manager work in cardiac rehabilitation programs and assist you with getting the treatments you need to get stronger and healthier - like exercise, healthy eating habits, and medications. Cardiac rehabilitation has been show to help people with heart problems live longer and have better life enjoyment than people who do not go to cardiac rehabilitation. Please contact the Cardiac Rehabilitation Program at [facility] at in two weeks if you have not heard from them.
--- NOTE | 2019-06-03 08:44 | CRPH1.INSTRU ---
General Education CAD and cardiac anatomy and function:: Patient communicates acknowledgment, Needs reinforcement Explanation of diagnoses and procedures:: Patient communicates acknowledgment, Needs reinforcement Sign/Symptoms of PA:: Patient communicates acknowledgment, Needs reinforcement Antiplatelet therapy: Patient communicates acknowledgment, Needs reinforcement Proper use of NTG-SL: Patient communicates acknowledgment, Needs reinforcement Emergency procedures and activation of EMS: Patient communicates acknowledgment, Needs reinforcement Compliance of all prescribed medications: Patient communicates acknowledgment, Needs reinforcement Smoking Patient Nicotine/Smoking Risk Factors Are:: Non-smoker Nicotine/Smoking Response Code:: Not instructed Dyslipidemia Patient Dyslipidemia Risk Factors Are:: Total Cholesterol, Triglycerides, HDL, LDL Recommendations Include:: Lipid profile provided, Reviewed NCEP/ATP guidelines, Therapeutic Lifestyle Change dietary guidelines Dyslipidemia Response Code:: Patient communicates acknowledgment, Needs reinforcement Overweight/Obesity Patient Overweight/Obesity Risk Factors Are:: Overweight = 26-29 Recommendations Include:: Weight loss of 5-10%, Reduced calorie diet, Exercise 5-7 times/week Overweight/Obesity:: Patient communicates acknowledgment, Needs reinforcement Hypertension Recommendations Include:: BP <130/80 if diabetic, DASH dietary guidelines, Decrease/maintain normal body weight Hypertension:: Patient communicates acknowledgment, Needs reinforcement Heart Disease Patient Heart Disease Risk Factors Are:: Previous cardiac event Recommendations Include:: Educated family members of their risk, Educated family members of importance of prevention of heart disease Heart Disease Response Code:: Patient communicates acknowledgment, Needs reinforcement Diabetes Patient Diabetes Risk Factors Are:: Elevated blood sugars Date of HgbA1c:: 06/01/19 Recommendations Include:: Maintain fasting blood sugars 70-110 md/dL, Maintain HgbA1c of 6% or less, Monitor blood sugar as prescribed, Diabetic dietary guidelines, Decrease/maintain body weight Diabetes:: Patient communicates acknowledgment, Needs reinforcement Metabolic Syndrome Metabolic Syndrome Response Code:: Not instructed Sedentary Recommendations Include:: Aerobic exercise 5-7 times/week for 20-30 minutes continuously, Benefits of regular exercise, Discussed home walking program, Monitored Outpatient Cardiac Rehab Sedentary Response Code:: Patient communicates acknowledgment, Needs reinforcement Stress Recommendations Include:: Identification of stressors, and assessment of coping skills, Stress management techniques Stress Response Code:: Patient communicates acknowledgment, Needs reinforcement
--- NOTE | 2019-06-03 09:05 | PCM.DC.SUM ---
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) Essential (primary) hypertension (Chronic) HLD (hyperlipidemia) (Chronic) Diabetes mellitus, type II (Chronic) H/O coronary artery bypass surgery (Chronic 07/27/18) CABG x 2 CARTWRIGHT-LAD, SVG-OM 07/27/18 Atherosclerosis of coronary artery of [place] heart without angina pectoris (Chronic) CABG x 2 CARTWRIGHT-LAD, SVG-OM 07/27/18; PCI-KALEIGH distal LCX with a 2.25 x 16 mm Promus Synergy, PCI-KALEIGH proximal LCX with a 2.5 x 16 mm Promus Synegy, POBA-OM1 06/02/19 Hospital Course and Treatment Imaging Results: Cardiac Catheterization DESx2 to proximal and distal LCX Cardiology Operations: None Procedures: Cardiac catheterization Summary of Care Provided: Mrs Ocampo is a 63 year old F who presented to the ED on 06/01/19 with intermittent L sided CP that did not radiate and had been going on for about 3 days prior to admission. She had associated dyspnea and nausea as well. She was noted to have a significant cardiac hx with a CABG in 2018. Her EKG at the time of admission showed T wave inversions in the lateral leads that was unchanged from prior EKGs. She was admitted to the PCU and a stress test was done on 06/02/19 that showed evidence of anterolateral ischemia with a moderate workload. Given the abnormal result a cardiac catheterization was performed later in the day on the and 2 KALEIGH were placed in the LCX aa (1 proximal and 1 distal). She was started on Brilinta and her BB was changed from metoprolol to coreg. Her lisinopril was d/c and she was started on Losartan. Her A1c was noted to be 7.1 and we discussed starting her on Metformin but the pt wants to be stricter with her diet and recheck in 3 mos. She stated that her last A1c was 6.5 2 mos ago without any oral meds. Her new prescriptions were faxed to her pharmacy and she was d/c in stable condition. Angina with PCI with KALEIGH to Prox/Distal LCX 06/02/19 -Cardiology following (Dr. Saeed) -continue ASA/Statin/Coreg/Losartan/Brilinta -pain is resolved -cath site looks good -ok to d/c today per cardiology Hypernatremia/Hyperchloremia -suspect iatrogenic -d/c IVF--> pt is eating and drinking well DM-2 uncontrolled -Control is fairly good with A1c of 7.1 -pt states that her A1c was 6.5 when last checked by her PCP about 2 mos ago--> would like to hold off meds for now and try to get it back down with diet alone as she has in the past -on no medications at home -hold on starting meds as pt would like to try diet control as this has worked in the past -will need f/u A1c in 3 mos CAD/HPL/HTN -continue Coreg--> may need to up titrate as BP is still a bit higher than i would like to see it -if not improved by f/u would consider increasing -continue statin -continue HCTZ--> there is room for up titration here too -last stents were placed 07/27/18 -needs aggressive control of risk factors] - Physical Exam Vital Signs Temp Pulse Resp BP Pulse Ox 97.8 F 77 16 132/65 H 100 06/03/19 04:00 06/03/19 07:49 06/03/19 07:49 06/03/19 07:49 06/03/19 07:49 Oxygen Flow Rate (L/min) 2 Oxygen Delivery Method Room Air Weight: 71.214 kg Body Mass Index (BMI) 27.8 Intake and Output for Last 24 Hours 06/01/19 06/02/19 06/03/19 23:59 23:59 23:59 Intake Total 100 / 100 3115.01 / 3115.01 120 / 120 Output Total 850 / 850 Balance 100 / 100 2265.01 / 2265.01 120 / 120 Laboratory Tests Past 24 Hrs 06/02/19 06/03/19 06/03/19 13:20 04:28 04:28 WBC 8.8 RBC 4.28 Hgb 11.5 L Hct 35.5 L MCV 82.9 MCH 26.9 L MCHC 32.4 RDW Std Deviation 47.2 H RDW Coeff of [place] 15.6 H Plt Count 167 MPV 11.3 Activated Clotting Time 208 H Sodium 147 H Potassium 4.0 Chloride 113 H Carbon Dioxide 26.0 Anion Gap 8 BUN 8 Creatinine 0.66 Estim Creat Clear Calc 74.05 Est GFR (MDRD) Af Amer 116 Est GFR (MDRD) Non-Af 96 BUN/Creatinine Ratio 12.0 Glucose 110 H Calcium 8.4 L Total Bilirubin 0.60 AST 22 ALT 21 Alkaline Phosphatase 64 Total Protein 6.0 L Albumin 3.2 Globulin 2.8 Albumin/Globulin Ratio 1.1 POC Glucose 06/03/19 06/02/19 06/02/19 01:12 21:18 17:03 POC Glucose 98 108 88 06/02/19 11:33 POC Glucose 134 H Discharge Diet: Low fat/ Low Cholesterol, 1800 Calorie Control Diet Discharge Activity: Return to Normal Activity May resume sexual activity in: No Restrictions Weight Bearing Status: Weight bearing as tolerated Call your doctor if your incision/area has: Continuous Slow Oozing, Sudden Increased Bleeding, Increased Pain/ Swelling, Increased Redness, Foul Smelling Discharge, Swelling at the incision site Call your doctor if you observe: Fever of 101 or Higher, Shortness of breath, Dizziness, Fainting spells, Swelling in the ankles, Chest pain, Increased palpitations (irregular heartbeat) Cleanse incision/area with: Soap & Water Home Medications: Medications to take at Discharge aspirin 81 mg tablet,delayed release 81 mg PO DAILY 08/21/18 metoprolol tartrate 25 mg tablet 25 mg PO BID 08/21/18 Atorvastatin Calcium [Lipitor] 80 mg PO QHS 06/01/19 Carvedilol [Coreg (Beta Babs)] 3.125 mg PO BID #60 tab 06/03/19 Losartan Potassium [Cozaar] 50 mg PO DAILY tablet 06/03/19 Ticagrelor [Brilinta] 90 mg PO BID #60 tab 06/03/19 hydroCHLOROthiazide [Hydrochlorothiazide] 12.5 mg PO DAILY #30 cap 06/03/19 Following Prescrptions Were Given to Patient: Ticagrelor [Brilinta] 90 mg PO BID #60 tab [facility] Carvedilol [Coreg (Beta Babs)] 3.125 mg PO BID #60 tab Transmission Status: [facility] hydroCHLOROthiazide [Hydrochlorothiazide] 12.5 mg PO DAILY #30 cap Transmission Status: Pending to [facility] Primary Care Physician: Emmett Lopez MD [Primary Care Provider] - Please follow up with your Primary Care Physician in: 1-2 weeks for hospital f/u Please Follow Up With: Tal Leone MD When: as scheduled Medical Necessity - Tobacco Use Smoking Status: Never smoker Tobacco Use: Non-smoker Meaningful Use Info Meaningful Use Diagnoses (Choose all that apply): None applicable
--- NOTE | 2019-06-03 09:20 | DCINST_ITS ---
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) Essential (primary) hypertension (Chronic) HLD (hyperlipidemia) (Chronic) Diabetes mellitus, type II (Chronic) You will use the following diet at home:: Calorie/Carbohydrate Controlled (specify 1200, 1400, etc), Cardiac Your food should be the consistency of: Regular Your liquids should be the consistency of: Regular/Thin Discharge Activity: Return to Normal Activity May resume sexual activity in: No Restrictions Weight Bearing Status: Weight bearing as tolerated Call your doctor if your incision/area has: Continuous Slow Oozing, Sudden Increased Bleeding, Increased Pain/ Swelling, Increased Redness, Foul Smelling Discharge, Swelling at the incision site Call your doctor if you observe: Fever of 101 or Higher, Shortness of breath, Dizziness, Fainting spells, Swelling in the ankles, Chest pain, Increased palpitations (irregular heartbeat) Cleanse incision/area with: Soap & Water Allergies/Adverse Reactions: Allergies No Known Allergies Allergy (Verified 06/01/19 19:45) Medications to take at Discharge aspirin 81 mg tablet,delayed release 81 mg PO DAILY 08/21/18 metoprolol tartrate 25 mg tablet 25 mg PO BID 08/21/18 Atorvastatin Calcium [Lipitor] 80 mg PO QHS 06/01/19 Carvedilol [Coreg (Beta Babs)] 3.125 mg PO BID #60 tab 06/03/19 Losartan Potassium [Cozaar] 50 mg PO DAILY tablet 06/03/19 Ticagrelor [Brilinta] 90 mg PO BID #60 tab 06/03/19 hydroCHLOROthiazide [Hydrochlorothiazide] 12.5 mg PO DAILY #30 cap 06/03/19 The following prescriptions were given: Ticagrelor [Brilinta] 90 mg PO BID #60 tab Transmission Status: Pending to [email or web address] Carvedilol [Coreg (Beta Babs)] 3.125 mg PO BID #60 tab [facility] hydroCHLOROthiazide [Hydrochlorothiazide] 12.5 mg PO DAILY #30 cap Transmission [facility] Primary Care Physician: Emmett Lopez MD [Primary Care Provider] - Please follow up with your Primary Care Physician in: 1-2 weeks for hospital f/u Test Results: Test results from this visit will be discussed in further detail at your follow- up appointment, if applicable. Please Follow Up With: Tal Leone MD When: as scheduled
--- NOTE | 2019-06-03 09:20 | CASEMGMT ---
MCKAYLA VALLADARES NOTE: Pt being discharged home on Brilinta. MCKAYLA VALLADARES to room. Introduced self and role of MCKAYLA VALLADARES. Given Brilinta savings card and educated pt on use. Pt instructed to talk to her manufacturing industrial engineer about more affordable options when she goes in for her follow-up appt as she is self-pay and the Brilinta savings card is applied for 1st 30-days only. Pt instructed on importance of taking medication as prescribed and to not stop taking it without talking with MD first. Pt voices understanding. Luisana SESAY RN, CM
[2019-06-03] MEDS: Famotidine 20 MG Tablet PO (10:36)
[2019-06-03] MEDS: TICAGRELOR 90 MG TABLET PO (10:36)
[2019-06-03] MEDS: Carvedilol 3.125 MG TABLET PO (10:36)
[2019-06-03] MEDS: Aspirin E.C. 81 MG Tablet PO (10:36)
[2019-06-03] MEDS: Losartan Potassium 50 MG Tablet PO (10:37)
[2019-06-03] MEDS: hydroCHLOROthiazide 12.5mg 12.5 MG PO (10:37)
[2019-06-03 11:46] LABS: Bedside Glucose 147 mg/dL (70-110)
== END 2019-06-03 12:01 | disposition home or self-care (01) ==
LOC: ED 20:08 → PCU 21:28 → ICU 06-02 13:16
PROVIDERS: Internal Medicine; Internal Medicine Cardiovascular Disease; Admitting Provider Family Medicine; Emergency Provider Emergency Medicine; Family Provider Family Medicine; PCP Family Medicine; Referring Provider Family Medicine; Visit Provider Internal Medicine
DX: R07.89 Other chest pain (principal); I16.0 Hypertensive urgency; R11.0 Nausea; I11.0 Hypertensive heart disease with heart failure; E87.0 Hyperosmolality and hypernatremia; I25.110 Atherosclerotic heart disease of native coronary artery with unstable angina pectoris; I50.20 Unspecified systolic (congestive) heart failure; R94.39 Abnormal result of other cardiovascular function study; I25.2 Old myocardial infarction; E78.5 Hyperlipidemia, unspecified; Z79.899 Other long term (current) drug therapy; Z95.1 Presence of aortocoronary bypass graft; Z79.82 Long term (current) use of aspirin; E11.65 Type 2 diabetes mellitus with hyperglycemia
CPT/HCPCS: 36415; 71045; 78452; 80048; 80053; 80061; 82962; 83036; 83735; 83880; 84484; 85025; 85027; 85347; 92921; 92928; 93005; 93017; 93458; 93459; 96361; 96374; 97803; 99218; 99285; A9500; C1760; J7030; J7040; Q9967; A4216; C1725; C1769; C1874; C1887; C1894; C9600; G0378; J2405

== ENCOUNTER 2019-06-07 22:09 | Emergency (ER) | payer OTHER, SELFPAY ==
[2019-06-01 21:40] VITALS: BMI 27.8
[2019-06-03 08:44] VITALS: BMI 27.8
[2019-06-07 22:09] VITALS: BP 158/89; PULSE 80; RESP 16; TEMP 36.8; O2SAT 100; BMI 26.7
[2019-06-07 22:22] VITALS: RESP 16
--- NOTE | 2019-06-07 22:35 | ED.DCSUM_ITS ---
History of Present Illness Chief Complaint: General Illness Informant: Patient Narrative: Presents after she bumped her cardiac catheterization right femoral site on chair tonight. She noticed a very small bump. She went to make sure is okay. She is on Brilinta and baby aspirin postop. She had her procedure just a few days ago. She received 2 stents. Otherwise she is been doing well. It does not hurt her. She is asymptomatic. Wanted to come in to make sure everything was okay. She has a postoperative appointment in 2 weeks. Current severity is mild. He has not been getting any bigger. No pulse in it. - Past Medical History (1) Atherosclerosis of coronary artery bypass graft of [place] heart with angina pectoris Status: Acute Comment: PCI-KALEIGH distal LCX w/ 2.25 x 16 mm Promus Synergy, PCI-KALEIGH proximal LCX w/ 2.5 x 16 mm Promus Synegy, POBA-OM1 06/02/19 (2) Atherosclerosis of coronary artery of [place] heart without angina pectoris Status: Chronic Comment: CABG x 2 CARTWRIGHT-LAD, SVG-OM 07/27/18; PCI-KALEIGH distal LCX with a 2.25 x 16 mm Promus Synergy, PCI-KALEIGH proximal LCX with a 2.5 x 16 mm Promus Synegy, POBA-OM1 06/02/19 (3) Essential (primary) hypertension Status: Chronic (4) H/O coronary artery bypass surgery Status: Chronic Comment: CABG x 2 CARTWRIGHT-LAD, SVG-OM 07/27/18 (5) HLD (hyperlipidemia) Status: Chronic (6) History of coronary artery stent placement Status: Resolved Comment: PCI-KLAEIGH distal LCX w/ 2.25 x 16 mm Promus Synergy, PCI-KALEIGH proximal LCX w/ 2.5 x 16 mm Promus Synegy, POBA-OM1 06/02/19 (7) Non-ST elevation IN (NSTEMI) Status: Resolved Past Medical History - Allergies and Home Meds Allergies/Adverse Reactions: Allergies No Known Allergies Allergy (Verified 06/01/19 19:45) Primary Care Physician: Ememtt Lopez MD [Primary Care Provider] - Prior records reviewed: Yes Past Medical History: - - See problem list Surgical History: cholecystectomy, hysterectomy, - - Neck surgery cervical fusion, CABG x 2 CARTWRIGHT-LAD, SVG-OM 07/27/18. Smoking Status: Never smoker Alcohol: None Drugs: None - Family History Maternal Family History: Family History (Last Reviewed 12/18/18 @ 10:02 by Tal Leone MD) Aunt Diabetes Uncle Diabetes Family History: Reports: Diabetes Paternal Family History: Family History (Last Reviewed 12/18/18 @ 10:02 by Tal Leone MD) Aunt Diabetes Uncle Diabetes Family History: Reports: Diabetes Review of Systems General: Denies: Chills, Fever, Sweats Eyes: Denies: Visual changes - bilaterally, Diplopia ENT: Denies: Rhinorrhea, Sore throat Cardiovascular: Denies: Chest pain, Palpitations Respiratory: Denies: Dyspnea, Cough, Dyspnea on exertion Gastrointestinal: Denies: Abdominal pain, Nausea, Vomiting, Diarrhea, Melena, Hematochezia Genitourinary: Denies: Dysuria, Hematuria, Frequency Musculoskeletal: Denies: Back pain, Extremity Pain Skin: Denies: Rash, Wounds Neurological: Reports: - - See HPI. Denies: Headache, Weakness, Numbness Physical Exam Vital Signs/Narrative: Vital Signs Temp Pulse Resp BP Pulse Ox 06/07/19 22:22 16 06/07/19 22:09 98.3 F 80 16 158/89 H 100 General: Well nourished, Well developed, No Acute Distress Head: Normocephalic, Atraumatic Eyes: Perrl, EOMI ENT: Moist mucous membranes, No rhinorrhea Neck: Supple, Nontender Cardiovascular: Regular rate, Regular rhythm, No murmurs Respiratory: No distress, CTA bilaterally, Chest nontender Abdomen: Soft, Nontender, Nondistended, Normal bowel sounds Back: Nontender, Normal Inspection Extremities: Nontender, No edema, - - Has a 1 inch x 1 inch superficial hematoma at her cardiac cath site in her right femoral region. There is nothing bleeding. Is not enlarging. There is no pulse. It is not hurting her. There is no infection. Skin: Normal color, No rash Neurological: Alert, Oriented x3, Cranial nerves II-XII grossly intact, Normal Strength, Normal Sensation Psychological: Normal affect, Normal Mood Diagnostic/Tx/Re-eval - Medical Decision Making She was reassured. She has a superficial hematoma postoperative. It is not pulsatile. She is having no active arterial bleeding. She will follow-up as an outpatient with her rate marker and call him in the morning. She will continue her medications. She will use pressure if needed at home. She will return if she worsens. ED Disposition - Plan for ED Patient: Disposition: Psychiatric Hospital or Unit Diagnosis: Post-op bleeding, Hematoma Instructions: Hematoma, CARDIAC CATHETERIZATION, Bleeding or Hematoma After Referrals: Emmett Lopez MD [Primary Care Provider] - Additional Instructions: Follow with your rate marker in 3 to 5 days
[2019-06-07 22:47] VITALS: RESP 16
== END 2019-06-07 22:47 | disposition home or self-care (01) ==
LOC: ED 22:41
PROVIDERS: Emergency Provider Emergency Medicine; Family Provider Family Medicine; PCP Family Medicine
DX: L76.32 Postprocedural hematoma of skin and subcutaneous tissue following other procedure (principal); I25.119 Atherosclerotic heart disease of native coronary artery with unspecified angina pectoris; I10 Essential (primary) hypertension; E78.5 Hyperlipidemia, unspecified; I25.2 Old myocardial infarction; Z95.1 Presence of aortocoronary bypass graft; Z79.82 Long term (current) use of aspirin; Z79.899 Other long term (current) drug therapy
CPT/HCPCS: 99283

== ENCOUNTER → 2019-06-17 08:56 | Outpatient (CLI) | payer OTHER, SELFPAY ==
[2019-06-03 08:44] VITALS: BMI 27.8
[2019-06-07 22:09] VITALS: BMI 26.7
--- NOTE | 2019-06-17 09:28 | CR.HP_ITS ---
CR - History & Physical - General Arrival date:: 06/17/19 Arrival time:: 09:00 Date of Referral:: 06/07/19 Date of CR Evaluation:: 06/17/19 Referring Physician: DR. GARNER Primary Diagnosis: PCI W/CORONARY STENT OF CORONARY BYPASS GRAFT - History of Present Cardiac Event Onset Date: Enter Onset Date of cardiac illnesses in Comment field below Coronary Artery Bypass Graft:: Yes - 07/27/2018 PTCA or coronary stenting:: Yes - 06/17/2019 Type of Symptoms:: CHEST PAIN Interventions with present event:: HEART CATH, STRESS ECHOCARDIOGRAM BEFORE THE CATH WAS DONE. Were there any complications?: NONE - Medications Home Medications: Ambulatory Orders Medication Instructions Recorded aspirin 81 mg tablet,delayed 81 mg PO DAILY 08/21/18 release metoprolol tartrate 25 mg tablet 25 mg PO BID 08/21/18 Atorvastatin Calcium [Lipitor] 80 mg PO QHS 06/01/19 Carvedilol [Coreg (Beta Babs)] 3.125 mg PO BID #60 tab 06/03/19 Losartan Potassium [Cozaar] 50 mg PO DAILY tab 06/03/19 Ticagrelor [Brilinta] 90 mg PO BID #60 tab 06/03/19 hydroCHLOROthiazide 12.5 mg PO DAILY #30 cap 06/03/19 [Hydrochlorothiazide] Lisinopril [Zestril] 2.5 mg PO BID 06/17/19 - Allergies Allergies/Adverse Reactions: Allergies No Known Allergies Allergy (Verified 06/01/19 19:45) - Sleep Disorder Evaluation Hx of Sleep Apnea: No Do you snore loudly (louder than talking or can be heard through closed doors)?: No Do you often feel tired/ fatigued/ sleepy during daytime?: No Has anyone observed you stop breathing during sleep?: No History of Hypertension (for STOP score): Yes STOP Results: Negative Advanced Directives - Advanced Directives Power of Church Official: No Living Will: No Advance Directives Information Provided: Yes Advance Directives on File: No DNR Order?:: No - MOLST See MOLST form: No Past Medical History - Past Medical Illness Medical History: Past Medical History (Last Updated 06/07/19 @ 08:45 by Rosa Callahan) 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) I25.709 PCI-KALEIGH distal LCX w/ 2.25 x 16 mm Promus Synergy, PCI-KALEIGH proximal LCX w/ 2.5 x 16 mm Promus Synegy, POBA-OM1 06/02/19 Essential (primary) hypertension (Chronic) I10 HLD (hyperlipidemia) (Chronic) E78.5 Atherosclerosis of coronary artery of [place] heart without angina pectoris (Chronic) I25.10 CABG x 2 CARTWRIGHT-LAD, SVG-OM 07/27/18; PCI-KALEIGH distal LCX with a 2.25 x 16 mm Promus Synergy, PCI-KALEIGH proximal LCX with a 2.5 x 16 mm Promus Synegy, POBA- OM1 06/02/19 Non-ST elevation [place] (NSTEMI) (Resolved) I21.4 Diabetes mellitus, type II E11.9 Type 2 diabetes mellitus E11.9 - Past Surgical History Surgical History: Past Surgical History (Last Updated 06/07/19 @ 08:45 by Rosa Callahan) History of coronary artery stent placement (Resolved) Onset Date: 06/02/19 Z95.5 PCI-KALEIGH distal LCX w/ 2.25 x 16 mm Promus Synergy, PCI-[place] proximal LCX w/ 2.5 x 16 mm Promus Synegy, POBA-OM1 06/02/19 H/O coronary artery bypass surgery (Chronic) Onset Date: 07/27/18 Z95.1 CABG x 2 CARTWRIGHT-LAD, SVG-OM 07/27/18 History of left heart catheterization Onset Date: 06/02/19 Z98.890 07/23/18, 828/ Surgical History: cholecystectomy, hysterectomy, - - Neck surgery cervical fusi on, CABG x 2 CARTWRIGHT-LAD, SVG-OM 07/27/18. - Family History Summary Family History: Family History (Last Reviewed 12/18/18 @ 10:02 by Tal Garner MD) Aunt Diabetes Uncle Diabetes Social History - Smoking History Smoking Status: Never smoker Hx Tobacco Use: No Hx Smoking Exposure: No - Alcohol Use Alcohol Usage: No - Substance Abuse Hx Substance Use: No - Occupation Occupation (List type of work in comments):: Homemaker - Hobbies, Recreation, Social Activities Hobbies: Farm, Sewing - NEEDLE WORK, EMBROIDERY, CROSS STICHING, Reading, Other - CLEANING Recreational Activities: I am able to engage in all my recreational activities Social Environment - Status Marital Status: - Current Living Arrangements Living Environment:: Spouse - Children How many children do you have?: 12 Do any of your children live nearby?: Yes - ONE ON THE PROPERTY - Safety Do you feel safe in your surroundings?: Yes - Assistance Do you need any assistance at home?: NONE Review of Systems - Review of Systems Hints: Right click = Denies (Slash). Left click = Reports ([place]) Review of Present Symptoms: Reports: Appetite - Special Diet - DIABETIC, CARDIAC DIET, Sleep - Normal. Denies: Shortness of Breath at Rest, Shortness of Breath with Exertion, Angina, Dizziness/Lightheadedness, Fatigue, Appetite - Normal - NOT QUITE BACK LIKE IT WAS BEFORE STEPHANIE STENT - Pain Is Patient Pain Free?: Yes Pain Location: none Pain Level: 0/10 Risk Factor Assessment - Chief Complaint Chief Complaint: PATIENT IS A 63 YR O[address] FEMALE OF DR[address] GARNER [facility] CORONARY BYPASS ARTERY FROM 2018. - Vital Signs Temperature: 98.7 F Respiratory Rate: 14 Blood Pressure: 132/64 - Pulse Pulse Rate: 61 Pulse Rhythm: Regular - Hypertension How long have you been treated?: SINCE SURGERY IN 2018. Blood Pressure Sitting - Left Arm: 132/64 - Blood Cholesterol/Lipids Total Cholesterol (mg/dL) Goal = less than 200 mg/dL: 112 - HDL Cholesterol (mg/dL) Goal = less than 40 mg/dL: 59 LDL Cholesterol (mg/dL) Goal = less than 70 mg/dL: 36 Triglycerides (mg/dL) Goal = less than 150 mg/dL: 86 - Diabetes Diabetic History: Type II - DIET CONTROLLED AT PRESENT TIME Nutrition Referral for Diabetes: Yes - Obesity Height: 5 ft 3 in Weight:: 159 lb Weight in Pounds: 159.0 lbs Weight Source: Standing Scale Body Mass Index (BMI): 28.1 Nutritional Referral for Obesity: No - Physical Inactivity Physical Inactivity: Recreational activity - Risk Stratification Risk Guidelines: Lowest Risk: Risk Factor for Smoking, Risk Factor for Dyslipidemia, Risk Factor for Diabetes, Risk Factor for Obesity, Risk Factor for Hypertension, Risk Factor for Sedentary Lifestyle, Risk Factor for Depression - For Smoking Smoking Risk Guidelines: Smoking Low Risk: None or quit greater than 6 months ago. Smoking Moderate Risk: Smoker or quit 6 months or less ago. Smoking High Risk: Smoker - For Dyslipidemia Dyslipidemia Risk Guidelines: Low Risk: Moderate Risk: High Risk: 15-25% fat 25.1-29% fat >/= 30% fat. <7% sat fat 7-9% sat fat >9% sat fat. <150 mg chol 150-299 mg chol >/= 300 mg chol. LDL <100 LDL 100-129 LDL >/= 130. Chol/HDL ratio <5.0 Chol/HDL ratio 5.0-6.0 Chol/HDL ratio >6.0. Triglycerides <100 Triglycerides 100- 149 Triglycerides >/= 150 - For Diabetes Mellitus Diabetes Risk Guidelines: Diabetes Low Risk: HgA1c <6.5% and/or FBG <120. Diabetes Moderate Risk: HgA1c 6.6-7.9% and/or FBG 120-180. Diabetes High Risk: HgA1c >/= 8% and/or FBG >180 - For Obesity/Overweight Obesity/Overweight Risk Guidelines: Obesity Low Risk: BMI <25.0. Obesity Moderate Risk: BMI 25-29.9. Obesity High Risk: BMI >/= 30.0 - For Hypertension Hypertension Risk Guidelines: Hypertension Low Risk: Systolic <120 and Diastolic <80. Hypertension Moderate Risk: Systolic 120-139 and Diastolic 80-89. Hypertension High Risk: Systolic >/= 140 and Diastolic >/= 90 - For Sedentary Lifestyle Sedentary Lifestyle Risk Guidelines: Sedentary Lifestyle Low Risk: >/= 1,500 kcal/week. Sedentary Lifestyle Moderate Risk: 700-1,499 kcal/week. Sedentary Lifestyle High Risk: < 700 kcal/week - For Depression Depression Risk Guidelines: Depression Low Risk: Not clinically depressed. Depression Moderate Risk: Mildly depressed. Depression High Risk: Clinically depressed - Family History Family History: Family History (Last Reviewed 12/18/18 @ 10:02 by Tla Garner MD) Aunt Diabetes Uncle Diabetes Motivation - Motivation to Participate On a scale of 1 to 10, how prepared are you to commit to attending program?: 10 What do you see as barriers to successfully being able to complete the program?: NONE What do you see as the benefits of succesfully completing the program? In other words, what do you hope to get out of participating in the program?: HEALTHIER, STRONGER Are there issues you are dealing with that will interfere with completing the program?: NONE Do you have a spouse or signficant other, family or friends who will help support you to complete the program?: YES
[2019-06-17 09:39] VITALS: BP 132/64; PULSE 61; RESP 14; TEMP 37.1; BMI 28.1
--- NOTE | 2019-06-17 09:56 | PCM.CR.ITP ---
General Information - General Information Admitting Diagnosis: pci w/coronary stent to bypass graft artery - Education/Goals Barriers to Learning: None Individual Counseling: Initial Assessment: Abnormal Cholesterol Levels, High Blood Pressure, Diabetes Cardiac Rehabilitation Goals: 1. Maintain the individual as the primary focus of care. 2. To improve the patient's quality of life. 3. Identification of cardiac risk factors and provide cardiac risk factor management. 4. Enhance the psychosocial status of the patient. 5. Reconditioning enough to allow the patient to resume customary activities. 6. Control symptoms of cardiac disease Scale for measuring improvement of personal goals: Enter appropriate number in Comments. 2 = Unchanged. 3 = Slightly Better. 4 = Moderate Improvement. 5 = Met my Goal Personal Goals: Initial Assessment: Improve management of stress and emotions, Improve knowledge of cardiac disease, Improve diet and eating habits (eat healthier), Control risk factors (learn risk factor modification) Exercise - Initial Assessment - Visit Date of Eval: 06/17/19 Session #:: 0 - START ON 06/21/2019 - Stages of Change Stages of Change:: Action - Physician Prescribed Exercise Modalities: Treadmill, Airdyne, NuStep Frequency (days/week): 3x/week for 12 weeks [36 sessions] Duration (Minutes):: 30-45 MIN Intensity: 60-80% age predicted maximum heart rate reserve METs - Progression: 0.5-1.0 MET, RPE 11-14 WEEK: 3.5 Target Heart Rate:: 105-135 - Hypertension Do any of the following apply?: Yes, Medication, Diet Resting Blood Pressure:: 132/64 - Intervention Home Exercise/Activity Goal:: Moderate Exercise 30 min/day x 5 days/wk - Education Goals:: Warm-up, RPE ERMIAS Scale, S/S, Safe Exercise, Self-Monitoring - Exercise Program Goals Exercise Program Goals: Aerobic Activity >30 min Nutrition - Initial Assessment - Program Goals Nutrition Program Goals: LDL <70. Total Cholesterol <200. HDL >45. Triglycerides <150. HgbA1C <7%. BMI <25 - Visit Date of Assessment:: 06/17/19 - Stages of Change Stages of Change:: Action - Lipids Total Cholesterol (mg/dL) Goal = less than 200 mg/dL: 112 - 06/02/2019 HDL Cholesterol (mg/dL) Goal = less than 45 mg/dL: 59 LDL Cholesterol (mg/dL) Goal = less than 70 mg/dL: 36 Triglycerides (mg/dL) Goal = less than 150 mg/dL: 86 - Diabetes Diabetes:: Yes Insulin: No Non-Insulin Dependent?: No Do you monitor your blood sugar at home?: No - Weight Management Height: 5 ft 3 in Weight:: 159 lb Body Fat %:: 27.8 - Intervention Referral to dietitian:: No Referral to Diabetic Clinic:: Yes Will attend diet classes:: No - Education Gave educational materials for:: Signs & symptoms of hypoglycemia, Signs & symptoms of hyperglycemia, Relate diabetes to coronary artery disease, Healthy eating Tobacco - Initial Assessment - Program Goals Tobacco Program Goals: Complete smoking cessation. Attend education classes. Improve Knowledge Test score - Stage of Change Stages of Change:: Action - Learning Barriers Learning Barriers: Ready to Learn - Family Support Do you have family support?: Yes - Tobacco Use Tobacco Use: Non-smoker Do you use smokeless tobacco?: No - Intervention Smoking Cessation Referral:: No Individual Education/Counseling:: No Education Schedule Given:: Yes - Education Attended class for:: Treating Heart Disease, How The Heart Works, What it means to have Heart Disease, How Coronary Artery Disease is Diagnosed, Heart Procedures, What Heart Medications Do, Risk Factors & Modifications, Living an Active Life, Nutrition, Emotions & Heart Disease, Stress Management & Relaxation, Sleep Disorders & Heart Disease Psychosocial - Initial Assess - Target Goals Target Goals: Assess presence or absence of depression. Using a valid screening tool, maximizes coping skills. Positive support system - Stages of Change Stages of Change:: Action - Psychosocial Test Tool Used:: HANDS Depression Questionnaire Tests Completed: SF - 36 survey completed, Mood Scale Test - Intervention PS - Interventions: Yes Attend Stress Management Classes, No Referral to Mental Health, No Referral to [facility] Case Management, No Referral to Physician, No Uses Stress Management Skills - Education Gave educational materials for:: Coping techniques, Signs & symptoms of depression, Stress management, Relaxation techniques - Patient/Program Goal Preventative Medication(s):: Aspirin, MOY inhibitor, Clopidogrel, Beta angela, Statin/lipid - Assistive Devices Assistive Devices:: None Fall Risk Assessed:: Yes Patient Health Questionnaire Initial Assessment 1. Little interest or pleasure in doing things: Not at all 2. Feeling down, depressed, or hopeless: Not at all 3. Trouble falling or staying asleep, or sleeping too much: Several days 4. Feeling tired or having little energy: Several days 5. Poor appetite or overeating: Several days 6. Feeling bad about yourself -- or that you are a failure or have let yourself or your family down: Not at all 7. Trouble concentrating on things, such as reading the newspaper or watching television: Not at all 8. Moving or speaking so slowly that other people could have noticed. Or the opposite - being so fidgety or restless that you have been moving around a lot more than usual: Not at all 9. Thoughts that you would be better off , or of hurting yourself in some way: Not at all How difficult have these problems made it for you to do your work, take care of things at home, or get along with other people?: Not difficult at all Total Score: 3 DEISY-Q SV Test - Statements CAD is a disease of the arteries in the heart: True Examples of risk factors for heart disease: True Angina is chest pain or discomfort: True The benefits of resistance training include: True Eating more meat and dairy products: False Anti-platelet medications such as aspirin are important: True The only effective way to manage stress: False An exercise warm-up slowly increases heart rate: True Prepared, processed foods usually have high sodium: True Depression is common after a heart attack: True The statin medications lower cholesterol: True To control blood pressure, lower the amount of sodium: True If someone gets chest discomfort during walking: False Transfats are partially hydrogenated vegetable oils: True Sleep apnea that is not treated increases the risk: True To control cholesterol, one should become a vegetarian: True Someone knows if he/she is exercising at the right level: True Diabetes cannot be prevented with exercise & health eating: False Stress is a large risk for heart attack: True A diet that can help lower blood pressure is rich in: True - Total Score Total Correct Responses: 17 Self-Efficacy Initial Assessment We would like to know how confident you are in doing certain activities. Please select your confidence level for:: Select your confidence level for the following using the scale 1-10 where 1 is not at all confident and 10 is totally confident. Your score is the average of all 6 responses. Fatigue: How confident are you that you can keep the fatigue caused by your disease from interfering with the things you want to do? Select Number: 10 Physical Discomfort or Pain: How confident are you that you can keep the physical discomfort or pain of your disease from interfering with the things you want to do? Select Number: 10 Emotional Distress: How confident are you that you can keep the emotional distress caused by your disease from interfering with the things you want to do? Select Number: 10 Other Symptoms or Health Problems: How confident are you that you can keep other symptoms or health problems from interfering with the things you want to do? Select Number: 10 Different Tasks and Activities: How confident are you that you can do the different tasks and activities needed to manage your health condition so as to reduce your need to see a doctor? Select Number: 10 Medication: How confident are you that you can do things other than just taking medication to reduce how much your illness affects your everyday life? Select Number: 10 Total Score:: 10 Nutrition Survey - Nutrition Survey Instructions Scoring Instructions: Scoring is as follows: Yes = 1 points. No = 0 point. Patient score that is >/=12 is considered to be at potential nutritional risk and could benefit from a referral to a registered dietitian. - Nutrition Survey Initial Have you lost >10 lbs over the past 2 months without trying?: No Are you following a special diet at home for diabetes, low fat, or low salt?: Yes Are you interested in meeting with a dietitian for help understanding your diet?: Yes Do you eat less than 3 meals a day?: No Do you eat fatty meats (cramer, sausage, ribs, etc), fried foods, desserts, large amounts of salad dressings, margarine, butter, or cheese most days?: No Do you have food allergies? [Enter types in comment field]: No Do you eat in restaurants more than 3 times a week?: No Do you season food with salt, seasoning salt, or garlic salt?: No Do you used canned, boxed, frozen meals, or soups, seasoning packets?: No Total Score:: 2
[2019-06-17 10:53] VITALS: BP 132/64
== END ==
PROVIDERS: Family Provider Family Medicine; PCP Family Medicine; Referring Provider Internal Medicine Cardiovascular Disease; Visit Provider Internal Medicine Cardiovascular Disease
DX: I25.709 Atherosclerosis of coronary artery bypass graft(s), unspecified, with unspecified angina pectoris (principal); I10 Essential (primary) hypertension; E78.5 Hyperlipidemia, unspecified; E11.9 Type 2 diabetes mellitus without complications

== ENCOUNTER 2019-07-05 10:15 | Outpatient (RCR) | payer OTHER, SELFPAY ==
[2018-09-03 11:19] VITALS: BMI 26.9
[2019-06-03 08:44] VITALS: BMI 27.8
[2019-06-17 09:39] VITALS: BMI 28.1
== END 2019-07-05 23:59 ==
LOC: CR 10:15
PROVIDERS: Family Provider Family Medicine; PCP Family Medicine; Referring Provider Internal Medicine Cardiovascular Disease; Visit Provider Internal Medicine Cardiovascular Disease
DX: I25.2 Old myocardial infarction (principal); Z95.1 Presence of aortocoronary bypass graft; Z95.5 Presence of coronary angioplasty implant and graft; I25.709 Atherosclerosis of coronary artery bypass graft(s), unspecified, with unspecified angina pectoris; I10 Essential (primary) hypertension; E78.5 Hyperlipidemia, unspecified
CPT/HCPCS: 93798

== ENCOUNTER 2019-08-04 10:15 | Outpatient (RCR) | payer OTHER, SELFPAY ==
[2019-06-03 08:44] VITALS: BMI 27.8
[2019-07-02 11:20] VITALS: BMI 27.1
--- NOTE | 2019-07-19 09:01 | PCM.CR.ITP ---
Exercise - 30-day Assessment - Visit Date of Eval: 07/19/19 Session #:: 9 - MISSED LAST WEEK DE TO [place]. - Stages of Change Stages of Change:: Action - Physician Prescribed Exercise Modalities: Treadmill, Airdyne, NuStep Frequency (days/week): 3 Duration (Minutes):: 30-45 Intensity: 60-80% age predicted maximum heart rate reserve METs - Progression: 0.5-1.0 MET, RPE 11-14 WEEK: 4.5 INCREASED FROM 3.5 Target Heart Rate:: 103-135 W MAX HR 135 - Hypertension Resting Blood Pressure:: 104/60 Peak Exercise Blood Pressure:: 174/84 Medication Changes:: Yes - Intervention Home Exercise/Activity Goal:: Moderate Exercise 30 min/day x 5 days/wk - Education Goals:: Warm-up, RPE ERMIAS Scale, S/S, Safe Exercise, Self-Monitoring - Exercise Program Goals Exercise Program Goals: Aerobic Activity >30 min Nutrition - Initial Assessment - Program Goals Nutrition Program Goals: LDL <70. Total Cholesterol <200. HDL >45. Triglycerides <150. HgbA1C <7%. BMI <25 - Diabetes Do you monitor your blood sugar at home?: No Nutrition - 30-Day Assessment - Program Goals Nutrition Program Goals: LDL <70. Total Cholesterol <200. HDL >45. Triglycerides <150. HgbA1C <7%. BMI <25 - Visit Date of Eval: 07/19/19 - Stages of Change Stages of Change:: Action - Lipids Has the patient seen the dietitian?: No - Diabetes Diabetes:: No Insulin: No Non-Insulin Dependent?: No - Weight Management Weight:: 156 lb 8 oz - DOWN FROM 159 - Intervention Referral to dietitian:: No Referral to Diabetic Clinic:: No Will attend diet classes:: Yes - Education Attended class for:: Healthy eating Tobacco - Initial Assessment - Program Goals Tobacco Program Goals: Complete smoking cessation. Attend education classes. Improve Knowledge Test score - Learning Barriers Learning Barriers: Ready to Learn Tobacco - 30-Day Assessment - Program Goals Tobacco Program Goals: Complete smoking cessation. Attend education classes. Improve Knowledge Test score - Stage of Change Stages of Change:: Action - Learning Barriers Learning Barriers: Participates in education - Family Support Do you have family support?: Yes - Tobacco Use Tobacco Use: Non-smoker Do you use smokeless tobacco?: No - Intervention Smoking Cessation Referral:: No Individual Education/Counseling:: No Education Schedule Given:: Yes - Education Attended class for:: Risk Factors & Modifications, Living an Active Life Psychosocial - Initial Assess - Target Goals Target Goals: Assess presence or absence of depression. Using a valid screening tool, maximizes coping skills. Positive support system - Psychosocial Test Tool Used:: HANDS Depression Questionnaire - Assistive Devices Fall Risk Assessed:: Yes Psychosocial - 30-Day Assess - Target Goals Target Goals: Assess presence or absence of depression. Using a valid screening tool, maximizes coping skills. Positive support system - Stages of Change Stages of Change:: Action - Psychosocial Test Tool Used:: HANDS Depression Questionnaire - Intervention PS - Interventions: Yes Attend Stress Management Classes, Yes Uses Stress Management Skills, No Referral to Mental Health, No Referral to [facility] Case Management, No Referral to Physician - Education Attended classes for:: Coping techniques, Signs & symptoms of depression, Stress management, Relaxation techniques - - Patient/Program Goal Preventative Medication(s):: Aspirin, MOY inhibitor, Clopidogrel, Beta angela - COMPLIANT WITH MEDICATIONS, Statin/lipid - Assistive Devices Assistive Devices:: None Fall Risk Assessed:: Yes Patient Health Questionnaire 30-Day Re-eval Assessment 1. Little interest or pleasure in doing things: Not at all 2. Feeling down, depressed, or hopeless: Not at all 3. Trouble falling or staying asleep, or sleeping too much: Not at all 4. Feeling tired or having little energy: Not at all 5. Poor appetite or overeating: Not at all 6. Feeling bad about yourself -- or that you are a failure or have let yourself or your family down: Not at all 7. Trouble concentrating on things, such as reading the newspaper or watching television: Not at all 8. Moving or speaking so slowly that other people could have noticed. Or the opposite - being so fidgety or restless that you have been moving around a lot more than usual: Not at all 9. Thoughts that you would be better off , or of hurting yourself in some way: Not at all Total Score: 0 Self-Efficacy 30-Day Re-eval Assessment We would like to know how confident you are in doing certain activities. Please select your confidence level for:: Select your confidence level for the following using the scale 1-10 where 1 is not at all confident and 10 is totally confident. Your score is the average of all 6 responses. Fatigue: How confident are you that you can keep the fatigue caused by your disease from interfering with the things you want to do? Select Number: 10 Physical Discomfort or Pain: How confident are you that you can keep the physical discomfort or pain of your disease from interfering with the things you want to do? Select Number: 10 Emotional Distress: How confident are you that you can keep the emotional distress caused by your disease from interfering with the things you want to do? Select Number: 10 Other Symptoms or Health Problems: How confident are you that you can keep other symptoms or health problems from interfering with the things you want to do? Select Number: 10 Different Tasks and Activities: How confident are you that you can do the different tasks and activities needed to manage your health condition so as to reduce your need to see a doctor? Select Number: 10 Medication: How confident are you that you can do things other than just taking medication to reduce how much your illness affects your everyday life? Select Number: 10 Total Score:: 10
[2019-07-19 09:07] VITALS: BP 104/60; BP 174/84
== END 2019-08-05 23:59 ==
LOC: CR 10:15
PROVIDERS: Family Provider Family Medicine; PCP Family Medicine; Referring Provider Internal Medicine Cardiovascular Disease; Visit Provider Internal Medicine Cardiovascular Disease
DX: I25.2 Old myocardial infarction (principal); Z95.1 Presence of aortocoronary bypass graft; Z95.5 Presence of coronary angioplasty implant and graft; I25.709 Atherosclerosis of coronary artery bypass graft(s), unspecified, with unspecified angina pectoris; I10 Essential (primary) hypertension; E78.5 Hyperlipidemia, unspecified
CPT/HCPCS: 93798

== ENCOUNTER 2019-08-06 11:05 | Outpatient (RCR) | payer OTHER, SELFPAY ==
[2019-06-03 08:44] VITALS: BMI 27.8
[2019-07-07 09:13] VITALS: BMI 27.1
[2019-08-06 00:18] VITALS: BP 104/60; BP 174/84
== END 2019-09-04 23:59 ==
LOC: CR 11:05
PROVIDERS: Family Provider Family Medicine; PCP Family Medicine; Referring Provider Internal Medicine Cardiovascular Disease; Visit Provider Internal Medicine Cardiovascular Disease
DX: I25.2 Old myocardial infarction (principal); Z95.1 Presence of aortocoronary bypass graft; Z95.5 Presence of coronary angioplasty implant and graft; I25.709 Atherosclerosis of coronary artery bypass graft(s), unspecified, with unspecified angina pectoris; I10 Essential (primary) hypertension; E78.5 Hyperlipidemia, unspecified
CPT/HCPCS: 93798

== ENCOUNTER 2020-03-04 09:41 | Emergency (ER) | payer OTHER, SELFPAY ==
[2019-06-03 08:44] VITALS: BMI 27.8
[2019-10-14 10:11] VITALS: BMI 27.1
[2020-03-04 09:42] VITALS: BP 184/89; PULSE 78; RESP 16; TEMP 36.7; O2SAT 99; BMI 26.5
--- NOTE | 2020-03-04 09:52 | ED.DCSUM_ITS ---
History of Present Illness Informant: Patient Onset: Month(s) - 2 months Context: Gradual Onset Timing: Continuous Quality: itchy, watery eyes, scratchy throat Location: eyes and throat Current Severity: Moderate Maximum Severity: Severe Worsened by: nothing Relieved by: nothing Associated Symptoms: nasal congestion Narrative: 64-year-old female past medical history of coronary artery disease presents to the emergency department complaining of allergy symptoms. The patient states she is on Suma. She is been on this medicine for for 5 years. Over the past 2 months she has had worsened itchy and watery eyes, nasal congestion and a scratchy throat. She does denies cough. She denies any headache. She denies any shortness of breath or chest pain. She does not feel lightheaded or dizzy. No rash. No nausea vomiting or diarrhea. No medication changes. She has not used any nasal sprays. She has not seen her primary care physician regarding the symptoms. Prior similar symptoms: Yes Recent Illness/Hospitalization: No <Bruce Meraz - Last Filed: 03/04/20 10:02> <Gonzalez Hamilton - Last Filed: 03/04/20 10:18> Chief Complaint: Cold Sx Past Medical History Prior records reviewed: Yes Past Medical History: - - Coronary artery disease, hypertension, hyperlipidemia, GERD, borderline type 2 diabetes currently not on medications Surgical History: cholecystectomy, coronary bypass surgery, hysterectomy, - - Neck surgery cervical fusion, CABG x 2 CARTWRIGHT-LAD, SVG-OM 07/27/18. Lives: With Family Smoking Status: Never smoker Alcohol: None Drugs: None - Family History Maternal Family History: Family History (Last Reviewed 10/14/19 @ 11:[address] Tal Leone MD) Aunt Diabetes Uncle Diabetes Family History: Reports: Diabetes Paternal Family History: Family History (Last Reviewed 10/14/19 @ 11:[address] Tal Leone MD) Aunt Diabetes Uncle Diabetes Family History: Reports: Diabetes <Bruce Meraz - Last Filed: 03/04/20 10:02> - Family History Maternal Family History: Family History (Last Reviewed 10/14/19 @ 11:[address] Tal Leone MD) Aunt Diabetes Uncle Diabetes Paternal Family History: Family History (Last Reviewed 10/14/19 @ 11:[address] Tal Leone MD) Aunt Diabetes Uncle Diabetes <Gonzalez Hamilton - Last Filed: 03/04/20 10:18> - Allergies and Home Meds Allergies/Adverse Reactions: Allergies No Known Allergies Allergy (Verified 03/04/20 09:44) Primary Care Physician: Emmett Lopez MD [Primary Care Provider] - Review of Systems All systems negative except as indicated General: Denies: Chills, Fever Eyes: Denies: Visual changes - bilaterally, Blurred Vision - bilaterally, Diplopia ENT: Reports: Rhinorrhea, Sore throat. Denies: Bilateral ear pain, Left ear pain, Right ear pain Cardiovascular: Denies: Chest pain, Palpitations, Heart racing Respiratory: Denies: Dyspnea, Cough, Sputum, Dyspnea on exertion, Orthopnea Gastrointestinal: Denies: Abdominal pain, Nausea, Vomiting, Diarrhea Genitourinary: Denies: Dysuria, Hematuria, Frequency Musculoskeletal: Denies: Myalgias, Arthralgias, Neck pain, Back pain, Swelling, Extremity Pain Skin: Denies: Rash, Abscess, Abrasions, Wounds Neurological: Denies: Headache, Weakness, Parasthesia, Numbness Hematologic: Denies: Easy bruising, Easy bleeding Allergy: Denies: Uticaria, Swelling of the mouth, Swelling of the tongue <Bruce Meraz - Last Filed: 03/04/20 10:02> Physical Exam Vital Signs/Narrative: Vital Signs Temp Pulse Resp BP Pulse Ox 03/04/20 09:42 98.1 F 78 16 184/89 H 99 Inital Vital Signs reviewed: Yes General: Well nourished, Well developed, No Acute Distress Head: Normocephalic, Atraumatic Eyes: Perrl, EOMI ENT: Moist mucous membranes, TM's clear, Nasal congestion, Sinus tenderness Neck: Supple, Nontender, No lymphadenopathy, No JVD Cardiovascular: Regular rate, Regular rhythm, No murmurs Respiratory: No distress, CTA bilaterally, Chest nontender Abdomen: Soft, Nontender, Nondistended Back: Nontender, Normal Inspection Extremities: Nontender, No edema Skin: Normal color, No rash, No Trauma Neurological: Alert, Oriented x3 Psychological: Normal affect, Normal Mood <Bruce Meraz - Last Filed: 03/04/20 10:02> Vital Signs/Narrative: Vital Signs Temp Pulse Resp BP Pulse Ox 03/04/20 09:42 98.1 F 78 16 184/89 H 99 <Gonzalez Hamilton - Last Filed: 03/04/20 10:18> Diagnostic/Tx/Re-eval - Medical Decision Making Patient is well-appearing patient has stable vital signs and is complaining of symptoms of allergic rhinitis. She already takes Suma. I will prescribe her Flonase to use as well and she will continue these medications. She was encouraged to follow-up with her primary care for further management of this. She was agreeable with plan and all questions were answered. <Bruce Meraz - Last Filed: 03/04/20 10:02> - Medical Decision Making Seen and evaluated independently and in conjunction with physician trust manager assistant. Agree with notes above unless documented otherwise. Patient in no respiratory distress. Ambulatory without difficulty. Has not taken her morning blood pressure medications yet. We will follow-up with her doctor for blood pressure recheck. <Gonzalez Hamilton - Last Filed: 03/04/20 10:18> ED Disposition <Bruce Meraz - Last Filed: 03/04/20 10:02> <Gonzalez Hamilton - Last Filed: 03/04/20 10:18> - Plan for ED Patient: Disposition: Home or Assisted Living Diagnosis: Allergic rhinitis, Essential (primary) hypertension, Atherosclerosis of coronary artery bypass graft without angina pectoris, HLD (hyperlipidemia) Instructions: ED NASAL ALLERGY Prescriptions: Fluticasone 0.05% [Flonase Nasal [place]] 1 spray NASAL DAILY #1 nasal.sry Prescription Printed Referrals: Emmett Lopez MD [Primary Care Provider] -
== END 2020-03-04 10:29 | disposition home or self-care (01) ==
LOC: ED 10:28
PROVIDERS: Emergency Provider Physician Assistant Medical; PCP Family Medicine
DX: J30.9 Allergic rhinitis, unspecified (principal); I10 Essential (primary) hypertension; I25.10 Atherosclerotic heart disease of native coronary artery without angina pectoris; E78.5 Hyperlipidemia, unspecified; E11.9 Type 2 diabetes mellitus without complications; K21.9 Gastro-esophageal reflux disease without esophagitis; Z95.1 Presence of aortocoronary bypass graft; Z79.02 Long term (current) use of antithrombotics/antiplatelets; Z79.899 Other long term (current) drug therapy
CPT/HCPCS: 99282

== ENCOUNTER → 2020-04-17 11:06 | Outpatient (CLI) | payer OTHER, SELFPAY ==
[2019-06-03 08:44] VITALS: BMI 27.8
[2020-04-17 13:27] LABS: AST(SGOT) 19 U/L (15-37); Alanine Aminotransfer ALT/SGPT 29 U/L (13-56); Albumin, Serum 3.7 g/dL (3.2-5.0); Alkaline Phosphatase 64 U/L (45-117); Bilirubin, Direct 0.14 mg/dL (0.00-0.30); Cholesterol 149 mg/dL (200); Globulin 3.6 g/dL (2.2-4.2); High Density Lipoprotein 78 mg/dL; Protein, Total 7.3 g/dL (6.4-8.2); Triglycerides 133 mg/dL; Very Low Density Lipoprotein 27 mg/dL (5-40)
== END ==
PROVIDERS: Internal Medicine Cardiovascular Disease; PCP Family Medicine; Referring Provider Physician Assistant Medical; Visit Provider Physician Assistant Medical
DX: I25.810 Atherosclerosis of coronary artery bypass graft(s) without angina pectoris (principal); E78.5 Hyperlipidemia, unspecified
CPT/HCPCS: 36415; 80061; 80076

== ENCOUNTER → 2020-07-10 11:24 | Outpatient (CLI) | payer OTHER, SELFPAY ==
[2019-06-03 08:44] VITALS: BMI 27.8
[2020-07-10 15:44] LABS: Anion Gap 3 (5-15); BUN 11 mg/dL (7-18); BUN/Creat Ratio 16.6 RATIO (10-20); Calcium,Total 9.3 mg/dL (8.5-10.1); Chloride 104 mmol/L (98-107); Creatinine, Serum 0.66 mg/dL (0.55-1.02); EST Glomerular Filtration Rate 96 mL/min (>60); Est Glom Filt Rate - Afr Amer 116 mL/min (>60); Glucose 116 mg/dL (74-106); Potassium 4.1 mmol/L (3.5-5.1); Sodium Level 137 mmol/L (136-145)
== END ==
PROVIDERS: PCP Family Medicine; Visit Provider Family Medicine
DX: I10 Essential (primary) hypertension (principal); E11.9 Type 2 diabetes mellitus without complications
CPT/HCPCS: 36415; 80048

== ENCOUNTER → 2020-11-30 14:56 | Outpatient (CLI) | payer OTHER, SELFPAY ==
[2019-06-03 08:44] VITALS: BMI 27.8
[2020-11-30 14:26] VITALS: BMI 26.5
[2020-11-30 16:02] LABS: AST(SGOT) 19 U/L (15-37); Alanine Aminotransfer ALT/SGPT 26 U/L (13-56); Alkaline Phosphatase 67 U/L (45-117); Bilirubin, Direct 0.11 mg/dL (0.00-0.30); Cholesterol 107 mg/dL (200); Globulin 3.2 g/dL (2.2-4.2); High Density Lipoprotein 61 mg/dL; Protein, Total 7.2 g/dL (6.4-8.2); Triglycerides 98 mg/dL; Very Low Density Lipoprotein 20 mg/dL (5-40)
== END ==
PROVIDERS: PCP Family Medicine; Referring Provider Internal Medicine Cardiovascular Disease; Visit Provider Internal Medicine Cardiovascular Disease
DX: E78.5 Hyperlipidemia, unspecified (principal)
CPT/HCPCS: 36415; 80061; 80076

== ENCOUNTER → 2022-12-14 | Outpatient (CLI) | payer SELFPAY ==
[2019-06-03 08:44] VITALS: BMI 27.8
[2022-12-16 20:09] LABS: Acetylcholine Receptor Binding < 0.03 nmol/L (0.00-0.24)
== END | disposition home or self-care (01) ==
PROVIDERS: PCP Family Medicine; Visit Provider Family Medicine
DX: R47.02 Dysphasia (principal)
CPT/HCPCS: 36415; 84238